=== PATIENT | female | born 1940 | race Caucasian/White ===

== ENCOUNTER → 2020-02-28 | Outpatient (CLI) | payer MEDICARE ==
--- NOTE | 2020-02-28 13:07 | MR ---
EXAMINATION TYPE: MR brain wo/w con DATE OF EXAM: 02/28/2020 COMPARISON: NONE HISTORY: MS, Abnormality of gait TECHNIQUE: Multiplanar, multisequence images of the brain and brainstem is performed without and with IV contras t, utilizing 7 mL intravenous Gadavist gadolinium contrast is administered intravenously. Demyelinat ing disease protocol with additional Sagittal Flair sequence performed. FINDINGS: T2 Lesions Present : Yes Approximate Number of Lesions: Difficult to accurately count due to confluent appearance at the periv entricular levels Locations Identified : Scattered most prominent periventricular, some posterior fossa involvement not ed for reference sagittal image 23. Size of Reference Lesion(s): 1. 1.1 x 0.7 x 1.0 cm posterior left frontal periventricular lesion axial image 19 and sagittal image 12 Enhancing Lesion(s) Present: No T1 Hypointense Lesion(s) Present: Yes Change from Prior: N/A Diffusion weighted images demonstrate no evidence of a recent infarct or other diffusion abnormality. There is diffuse ventricular and sulcal prominence with some generalized corpus callosal atrophy. Midline structures demonstrate normal morphology. The craniocervical junction appears within normal limits. Post contrast images demonstrate no abnormal enhancement. The dural venous sinuses appear pa tent. The visualized sinuses are clear and the globes are intact. IMPRESSION: Fairly moderate generalized atrophy and severe white matter changes may be on basis of kn own multiple sclerosis. No enhancing lesions are evident.
== END | disposition home or self-care (01) ==
LOC: RADMRIMAIN 11:16
PROVIDERS: ATTEND Psychiatry & Neurology Neurology
DX: G35 Multiple sclerosis (principal); R26.9 Unspecified abnormalities of gait and mobility; Z88.0 Allergy status to penicillin; Z88.2 Allergy status to sulfonamides
CPT/HCPCS: 70553; A9585

== ENCOUNTER → 2022-03-06 | Outpatient (CLI) | payer MEDICARE ==
--- NOTE | 2022-03-06 15:59 | MR ---
EXAMINATION TYPE: MR brain wo/w con DATE OF EXAM: 03/06/2022 COMPARISON: 02/28/2020 HISTORY: Increasing right leg weakness CONTRAST: Performed utilizing 6 mL intravenous Gadavist gadolinium contrast. TECHNIQUE: Multiplanar, multisequence imaging of the brain is performed on a 3.0 Caity magnet. Demye linating disease protocol with additional Sagittal Flair sequence is performed. Study is performed wi thin 24 hours of arrival to the hospital. FINDINGS: T2 White Matter Lesions Present : Yes Approximate Number of Lesions: Multiple scattered Locations Identified : Confluent Periventricular Size of Largest reference Lesion(s): 1. 1.0 x 1.1 x1.1 cm. Location: Periventricular Sequence 502 Image 20 (axial) and Sequence 501 Image 82r (sagittal). 2. 0.9 x 1.0 x 0.9 cm. Location: Right frontal centrum semiovale Sequence 401 Image 21 (axial) and Sequence 501 Image 170 (sagittal). Enhancing Lesion(s) Present: No Change from Prior: Stable Diffusion-weighted imaging is performed. No abnormal hyperintensity is present to suggest an acute i ntracranial infarct or acute ischemic change. Ventricles and sulci are prominent for the patient age. There is diffuse thinning of the corpus callo sum. No abnormal enhancement is evident. The visualized sinuses are clear. Visualized orbits are unremarkable. IMPRESSION: 1. Stable appearance of chronic white matter changes in the periventricular white matter and centrum semiovale can be compatible with multiple sclerosis.
== END | disposition home or self-care (01) ==
LOC: RADMRIMAIN 10:38
PROVIDERS: ATTEND Psychiatry & Neurology Neurology
DX: I67.82 Cerebral ischemia (principal)
CPT/HCPCS: 70553; A9585

== ENCOUNTER → 2023-08-04 | Outpatient (CLI) | payer MEDICARE ==
[2023-08-04 11:06] LABS: African American GFR (CKD) 86 (>60 ml/min/1.73 sqM); Blood Urea Nitrogen 18 mg/dL (7-17); Non-African American GFR(CKD) 75 (>60 ml/min/1.73 sqM)
--- NOTE | 2023-08-04 16:31 | CT ---
EXAMINATION TYPE: CT urogram wo/w con DATE OF EXAM: 08/04/2023 HISTORY: gross hematuria x [address] DLP: 2792mGycm Automated Exposure Control for Dose Reduction was Utilized. CONTRAST: CT scan of the abdomen and pelvis is performed without oral and without and with IV Contrast, patient injected with 100 cc mL of Isovue 300. Urogram protocol with 3-D reconstructed images created on an independent workstation and reviewed. COMPARISON: None. FINDINGS: KUB: Noncontrast images show abnormal axis to both kidneys pointed anteriorly. There is a nonobstruct ing 4 mm calculus lower pole right kidney axial image 81. No left-sided nephrolithiasis. Postcontrast images show symmetric cortical medullary uptake and excretion with partially exophytic 2.4 x 1.6 cm thin-walled cyst from the upper pole right kidney axial image 35 series 9. No intraluminal mass or ca lculus in the bladder. There are several bladder outpouchings or diverticula seen bilaterally. Incomp lete opacification of the bilateral ureters. LUNG BASES: No significant abnormality is appreciated. LIVER/GB: Roughly 1.0 cm low-density lesion left hepatic lobe axial image 21 favors benign thin-barbara d cyst. PANCREAS: No significant abnormality is seen. SPLEEN: No significant abnormality is seen. ADRENALS: No significant abnormality is seen. BOWEL: Distal colonic diverticulosis. No CT evidence for acute diverticulitis. No abnormal small or l arge bowel dilatation. UTERUS/ADNEXA: Small size uterus or uterus remnant. LYMPH NODES: No greater than 1cm abdominal or pelvic lymph nodes are appreciated. OSSEOUS STRUCTURES: No significant abnormality is seen. OTHER: Moderate calcified plaque of the aorta extends into branch vessels. IMPRESSION: 1. 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 There is 4 mm nonobstructing right renal calc ulus. There are several small bladder diverticulum. 2.
== END | disposition home or self-care (01) ==
LOC: RADCTMAIN 09:34
PROVIDERS: ATTEND Urology
DX: N20.0 Calculus of kidney (principal); N32.3 Diverticulum of bladder; R31.0 Gross hematuria; N28.89 Other specified disorders of kidney and ureter
CPT/HCPCS: 82565; 84520; 36415; 74400; 74178; Q9967

== ENCOUNTER 2023-08-21 10:47 | Inpatient (IN) | payer MEDICARE ==
--- NOTE | 2023-08-21 11:01 | ED ---
General Adult HPI - General Source: patient Mode of arrival: ambulatory Limitations: no limitations <Cesia Lancaster - Last Filed: 08/21/23 10:59> - General Source: patient, family, RN notes reviewed, old records reviewed <Fernandez Wang - Last Filed: 08/21/23 14:37> - General Stated complaint: possible sepsis - History of Present Illness Initial comments: Patient is an 82-year-old female with a history of MS presents emergency room accompanied by her family member for severe weakness, possible dehydration and erratic heart rate. Patient also has some slight confusion this morning. Patient has any cough, shortness breath, pain, fever or hemoptysis. Of note family member states that she has had vaginal bleeding for the last few months. (Cesia Lancaster) Patient is an 82-year-old female presents emergency Department complaining of tachycardia. Was sent from urgent care. Presents with caregiver. States patient has been somewhat confused with a decreased appetite for multiple days. Also noted some mild cough however primary complaint is the fever and tach ycardia. Denies any chest pain. Denies shortness of breath. Denies abdominal pain, nausea, vomiting. No other acute complaints at this time. Is not on blood thinners. No lower extremity edema. Presents for further evaluation at this time. No known sick contacts. Originally seen is a quick note. Patient does have a history of vaginal bleeding which is being worked up outpatient. (Fernandez Wang) - Related Data Home Medications Medication Instructions Recorded Confirmed No Known Home Medications 08/21/23 08/21/23 Allergies Allergy/AdvReac Type Severity Reaction Status Date / Time Sulfa (Sulfonamide Allergy Unknown Verified 08/21/23 10:57 Antibiotics) Penicillins AdvReac Unknown Verified 08/21/23 10:57 Review of Systems ROS Other: All systems not noted in ROS Statement are negative. <Cesia Lancaster - Last Filed: 08/21/23 10:59> ROS Other: All systems not noted in ROS Statement are negative. <Fernandez Wang - Last Filed: 08/21/23 14:37> ROS Statement: Those systems with pertinent positive or pertinent negative responses have been documented in the HPI. Review of Systems: CONST: Denies fever EYES: Denies blurry vision ENT: Denies nasal congestion C/V: Denies Chest pain RESP: Denies shortness of breath GI: Denies abdominal pain : Denies dysuria SKIN: Denies rash. MSK: Denies joint pain. NEURO: Denies headache (Fernandez Wang) Past Medical History Additional Past Medical History / Comment(s): MS, Past Surgical History: Hysterectomy Past Psychological History: No Psychological Hx Reported Smoking Status: Former smoker Past Alcohol Use History: None Reported Past Drug Use History: None Reported <Cesia Lancaster - Last Filed: 08/21/23 10:59> General Exam Limitations: no limitations <Cesia Lancaster - Last Filed: 08/21/23 10:59> <Fernandez Wang - Last Filed: 08/21/23 14:37> - General Exam Comments Initial Comments: Visual Physical Exam Vital signs reviewed General: Ill-appearing, nontoxic, pale and weak Head: Normocephalic, atraumatic Eyes: PERRLA, EOMI ENT: Airway patent Chest: Nonlabored breathing Skin: No visual rash, pale Neuro: Alert and oriented Musculoskeletal: No gross abnormalities (Cesia Lancaster) General: Appears in no acute distress. Febrile HEAD: Normal with no signs of head trauma. Pupils are 3 mm and equal bilatera lly. EYES: PERRLA, EOMI, conjunctiva normal, no discharge. ENT: Hearing grossly intact, normal oropharynx. RESPIRATORY: Clear breath sounds bilaterally. No wheezes, rales, or rhonchi. C/V: Tachycardic with a regular rhythm. S1 and S2 auscultated, no edema, peripheral pulses 2+ and intact throughout ABD: Abd is soft, nontender, nondistended EXT: Normal range of motion, no obvious deformity SKIN: No rashes or lesions observed on exposed skin. NEURO: Alert and oriented 4. No focal deficits. (Fernandez Wang) Course Vital Signs 08/21/23 08/21/23 10:50 14:14 Temperature 101.6 F H 97.8 F Pulse Rate 151 H 102 H Respiratory 20 18 Rate Blood Pressure 167/77 115/66 O2 Sat by Pulse 92 L 97 Oximetry Medical Decision Making <TonnyCesia - Last Filed: 08/21/23 10:59> - Lab Data Result diagrams: 08/21/23 11:11 08/21/23 11:11 - EKG Data -: EKG Interpreted by Me <Fernandez Wang - Last Filed: 08/21/23 14:37> - Medical Decision Making Quick note portion completed by myself, electronically signed ARNULFO Alvarez. (Cesia Lancaster) Was pt. sent in by a medical professional or institution (, PA, REMOTE SENSING ENGINEER, urgent care, hospital, or snf...) When possible be specific @ -No Did you speak to anyone other than the patient for history (EMS, parent, family, police, friend...)? What history was obtained from this source @ -No Did you review nursing and triage notes (agree or disagree)? Why? @ -I reviewed and agree with nursing and triage notes Were old charts reviewed (outside hosp., previous admission, EMS record, old EKG, old radiological studies, urgent care reports/EKG's, snf records)? Report findings @ -Old charts reviewed Differential Diagnosis (chest pain, altered mental status, abdominal pain women, abdominal pain men, vaginal bleeding, weakness, fever, dyspnea, syncope, headache, dizziness, GI bleed, back pain, seizure, CVA, palpatations, mental health, musculoskeletal)? @ -Differential Fever: Pneumonia, viral URI, endocarditis, myocarditis, pericarditis, otitis, sinusitis, peritonsillar Abscess, retropharyngeal Abscess, epiglottitis, peritonitis, appendicitis, Geetha cystitis, diverticulitis, hepatitis, colitis, UTI, PID, TOA, pyelonephritis, prostatitis, epididymitis, meningitis, encephalitis, pulmonary embolism, CVA, thyroid storm, pancreatitis, adrenal crisis, cavernous sinus thrombosis, this is not meant to be an all-inclusive list. EKG interpreted by me (3pts min.). @ -As above X-rays interpreted by me (1pt min.). @ -Chest x-ray reveals no obvious acute cardio pulmonary process. CT interpreted by me (1pt min.). @ -CT brain shows no obvious evidence of an acute intracranial process. U/S interpreted by me (1pt. min.). @ -None done What testing was considered but not performed or refused? (CT, X-rays, U/S, labs)? Why? @ -None What meds were considered but not given or refused? Why? @ -None Did you discuss the management of the patient with other professionals (professionals i.e. , PA, REMOTE SENSING ENGINEER, lab, RT, psych nurse, social work administrator, editorial specialist, teacher, air defense control officer, protective services case worker)? Give summary @ -I spoke with the admitting team, Dr. Knapp of [facility] who accepted the patien t. Was smoking cessation discussed for >3mins.? @ -No Was critical care preformed (if so, how long)? @ -No Were there social determinants of health that impacted care today? How? (Homelessness, low income, unemployed, alcoholism, drug addiction, transportation, low edu. Level, literacy, decrease access to med. care, [facility], rehab)? @ -No Was there de-escalation of care discussed even if they declined (Discuss DNR or withdrawal of care, Hospice)? DNR status @ -No What co-morbidities impacted this encounter? (DM, HTN, Smoking, COPD, CAD, Cancer, CVA, ARF, Chemo, Hep., AIDS, mental health diagnosis, sleep apnea, morbid obesity)? @ -None Was patient admitted / discharged? Hospital course, mention meds given and route, prescriptions, significant lab abnormalities, going to OR and other pe rtinent info. @ -Based on the patient's presentation and physical exam, I'm concerned for possible infection for the patient. She is tachycardic and febrile. We will obtain infectious workup. CT brain also be obtained due to the episode of confusion earlier. Really has no confusion. She was in agreement this plan. Vital signs otherwise within acceptable limits. Patient will be given a 1 L fluid bolus as well as Tylenol. EKG showed sinus tachycardia. Patient's labs are marked lactic acidosis of 3.2. Mildly leukopenic at 2.1. Hemoglobin level within acceptable limits. At this time 1216, patient did meet criteria for sepsis. Patient has already received a 1 L fluid bolus as well as a dose of acetaminophen. She'll receive an additional fluid bolus and be placed on maintenance fluids of 100 mL an hour to me to 30 mL per KG requirement. Patient will be empirically placed on vancomycin and cefepime. Further workup still pending. Blood cultures obtained and sent. Urine is unremarkable. Viral swabs are negative. On reevaluation, patient's EKG and tachycardia has resolved after fluid boluses and treatment. Patient's fever is also improved. Patient will be admitted at this time. She was in agreement this plan. I spoke with the admitting team, Dr. Knapp of [facility] who accepted the patient. Undiagnosed new problem with uncertain prognosis? @ -No Drug Therapy requiring intensive monitoring for toxicity (Heparin, Nitro, Insulin, Cardizem)? @ -No Were any procedures done? @ -No Diagnosis/symptom? @ -Sepsis, unknown source. Sinus tachycardia. Dehydration Acute, or Chronic, or Acute on Chronic? @ -Acute Uncomplicated (without systemic symptoms) or Complicated (systemic symptoms)? @ -Complicated Side effects of treatment? @ -No Exacerbation, Progression, or Severe Exacerbation? @ -No Poses a threat to life or bodily function? How? (Chest pain, [place], [place], pneumonia, PE, COPD, DKA, ARF, appy, cholecystitis, CVA, Diverticulitis, Homicidal, Suicidal, threat to staff... and all critical care pts) @ -Yes (Fernandez Wang) - Lab Data Lab Results 08/21/23 08/21/23 08/21/23 Range/Units 11:11 11:11 11:11 WBC (3.8-10.6) k/uL RBC (3.80-5.40) m/uL Hgb (11.4-16.0) gm/dL Hct (34.0-46.0) % MCV (80.0-100.0) fL MCH (25.0-35.0) pg MCHC (31.0-37.0) g/dL RDW (11.5-15.5) % Plt Count (150-450) k/uL MPV Neutrophils % (Manual) % Lymphocytes % (Manual) % Monocytes % (Manual) % Eosinophils % (Manual) % Neutrophils # Neutrophils # (Manual) (1.3-7.7) k/uL Lymphocytes # (Manual) (1.0-4.8) k/uL Monocytes # (Manual) (0-1.0) k/uL Eosinophils # (Manual) (0-0.7) k/uL Nucleated RBCs (0-0) /100 WBC Manual Slide Review Sodium (137-145) mmol/L Potassium (3.5-5.1) mmol/L Chloride (98-107) mmol/L Carbon Dioxide (22-30) mmol/L Anion Gap mmol/L BUN (7-17) mg/dL Creatinine (0.52-1.04) mg/dL Est GFR (CKD-EPI)AfAm (>60 ml/min/1.73 sqM) Est GFR (CKD-EPI)NonAf (>60 ml/min/1.73 sqM) Glucose (74-99) mg/dL Lactic Ac Sepsis Rflx Plasma Lactic Acid Dany 3.2 H* (0.7-2.0) mmol/L Calcium (8.4-10.2) mg/dL Total Bilirubin (0.2-1.3) mg/dL AST (14-36) U/L ALT (4-34) U/L Alkaline Phosphatase (38-126) U/L Troponin I 0.015 (0.000-0.034) ng/mL Total Protein (6.3-8.2) g/dL Albumin (3.5-5.0) g/dL Urine Color Urine Appearance (Clear) Urine pH (5.0-8.0) Ur Specific [place] (1.001-1.035) Urine Protein (Negative) Urine Glucose (UA) (Negative) Urine Ketones (Negative) Urine Blood (Negative) Urine Nitrite (Negative) Urine Bilirubin (Negative) Urine Urobilinogen (<2.0) mg/dL Ur Leukocyte Esterase (Negative) Urine RBC (0-5) /hpf Urine WBC (0-5) /hpf Ur Squamous Epith Cells (0-4) /hpf Urine Mucus (None) /hpf Influenza Type A (PCR) Not Detected (Not Detectd) Influenza Type B (PCR) Not Detected (Not Detectd) RSV (PCR) Not Detected (Not Detectd) SARS-CoV-2 (PCR) Not Detected (Not Detectd) 08/21/23 08/21/23 08/21/23 Range/Units 11:11 11:11 11:11 WBC 2.1 L (3.8-10.6) k/uL RBC 5.05 (3.80-5.40) m/uL Hgb 14.5 (11.4-16.0) gm/dL Hct 44.3 (34.0-46.0) % MCV 87.7 (80.0-100.0) fL MCH 28.6 (25.0-35.0) pg MCHC 32.6 (31.0-37.0) g/dL RDW 13.9 (11.5-15.5) % Plt Count 204 (150-450) k/uL MPV 10.0 Neutrophils % (Manual) 5 % Lymphocytes % (Manual) 80 % Monocytes % (Manual) 13 % Eosinophils % (Manual) 2 % Neutrophils # REMOTE SENSING ENGINEER Neutrophils # (Manual) 0.11 L* (1.3-7.7) k/uL Lymphocytes # (Manual) 1.68 (1.0-4.8) k/uL Monocytes # (Manual) 0.27 (0-1.0) k/uL Eosinophils # (Manual) 0.04 (0-0.7) k/uL Nucleated RBCs 0 (0-0) /100 WBC Manual Slide Review Performed Sodium 138 (137-145) mmol/L Potassium 4.1 (3.5-5.1) mmol/L Chloride 101 (98-107) mmol/L Carbon Dioxide 22 (22-30) mmol/L Anion Gap 15 mmol/L BUN 13 (7-17) mg/dL Creatinine 0.59 (0.52-1.04) mg/dL Est GFR (CKD-EPI)AfAm >90 (>60 ml/min/1.73 sqM) Est GFR (CKD-EPI)NonAf 86 (>60 ml/min/1.73 sqM) Glucose 132 H (74-99) mg/dL Lactic Ac Sepsis Rflx Plasma Lactic Acid Dany (0.7-2.0) mmol/L Calcium 9.2 (8.4-10.2) mg/dL Total Bilirubin 1.4 H (0.2-1.3) mg/dL AST 24 (14-36) U/L ALT 16 (4-34) U/L Alkaline Phosphatase 85 (38-126) U/L Troponin I (0.000-0.034) ng/mL Total Protein 6.6 (6.3-8.2) g/dL Albumin 3.8 (3.5-5.0) g/dL Urine Color Yellow Urine Appearance Clear (Clear) Urine pH 7.0 (5.0-8.0) Ur Specific [place] 1.015 (1.001-1.035) Urine Protein Trace H (Negative) Urine Glucose (UA) Negative (Negative) Urine Ketones 2+ (Negative) Urine Blood Trace H (Negative) Urine Nitrite Negative (Negative) Urine Bilirubin Negative (Negative) Urine Urobilinogen 1.0 (<2.0) mg/dL Ur Leukocyte Esterase Trace H (Negative) Urine RBC 4 (0-5) /hpf Urine WBC 1 (0-5) /hpf Ur Squamous Epith Cells <1 (0-4) /hpf Urine Mucus Rare H (None) /hpf Influenza Type A (PCR) (Not Detectd) Influenza Type B (PCR) (Not Detectd) RSV (PCR) (Not Detectd) SARS-CoV-2 (PCR) (Not Detectd) 08/21/23 Range/Units 12:03 WBC (3.8-10.6) k/uL RBC (3.80-5.40) m/uL Hgb (11.4-16.0) gm/dL Hct (34.0-46.0) % MCV (80.0-100.0) fL MCH (25.0-35.0) pg MCHC (31.0-37.0) g/dL RDW (11.5-15.5) % Plt Count (150-450) k/uL MPV Neutrophils % (Manual) % Lymphocytes % (Manual) % Monocytes % (Manual) % Eosinophils % (Manual) % Neutrophils # Neutrophils # (Manual) (1.3-7.7) k/uL Lymphocytes # (Manual) (1.0-4.8) k/uL Monocytes # (Manual) (0-1.0) k/uL Eosinophils # (Manual) (0-0.7) k/uL Nucleated RBCs (0-0) /100 WBC Manual Slide Review Sodium (137-145) mmol/L Potassium (3.5-5.1) mmol/L Chloride (98-107) mmol/L Carbon Dioxide (22-30) mmol/L Anion Gap mmol/L BUN (7-17) mg/dL Creatinine (0.52-1.04) mg/dL Est GFR (CKD-EPI)AfAm (>60 ml/min/1.73 sqM) Est GFR (CKD-EPI)NonAf (>60 ml/min/1.73 sqM) Glucose (74-99) mg/dL Lactic Ac Sepsis Rflx Y Plasma Lactic Acid Dany (0.7-2.0) mmol/L Calcium (8.4-10.2) mg/dL Total Bilirubin (0.2-1.3) mg/dL AST (14-36) U/L ALT (4-34) U/L Alkaline Phosphatase (38-126) U/L Troponin I (0.000-0.034) ng/mL Total Protein (6.3-8.2) g/dL Albumin (3.5-5.0) g/dL Urine Color Urine Appearance (Clear) Urine pH (5.0-8.0) Ur Specific [place] (1.001-1.035) Urine Protein (Negative) Urine Glucose (UA) (Negative) Urine Ketones (Negative) Urine Blood (Negative) Urine Nitrite (Negative) Urine Bilirubin (Negative) Urine Urobilinogen (<2.0) mg/dL Ur Leukocyte Esterase (Negative) Urine RBC (0-5) /hpf Urine WBC (0-5) /hpf Ur Squamous Epith Cells (0-4) /hpf Urine Mucus (None) /hpf Influenza Type A (PCR) (Not Detectd) Influenza Type B (PCR) (Not Detectd) RSV (PCR) (Not Detectd) SARS-CoV-2 (PCR) (Not Detectd) - EKG Data EKG Comments: 12-lead Electrocardiogram Interpretation Note EKG was reviewed and interpreted by myself. 12-lead ECG performed at 11:15 is interpreted by me as revealing sinus tachycardia at a rate of 146 beats per minute. [place] is normal. VA interval is 136 ms, QRS duration 71 ms, QTc is 445 ms.. There were no ST or T wave abnormalities to suggest myocardial ischemia or injury. R wave progression across the precordium was delayed. By my interpretation this EKG is non-diagnostic for acute ischemia. (Fernandez Wang) Disposition <Cesia Lancaster - Last Filed: 08/21/23 10:59> Time of Disposition: 12:51 <Fernandez Wang - Last Filed: 08/21/23 14:37> Clinical Impression: Sepsis, Sinus tachycardia, Febrile illness, Dehydration Disposition: ADMITTED IP TO THIS HOSP Condition: Serious
[2023-08-21 11:47] LABS: HCT 44.3 % (34.0-46.0); HGB 14.5 gm/dL (11.4-16.0); MCH 28.6 pg (25.0-35.0); MCHC 32.6 g/dL (31.0-37.0); MCV 87.7 fL (80.0-100.0); Platelet Count 204 k/uL (150-450); RBC 5.05 m/uL (3.80-5.40); RDW 13.9 % (11.5-15.5); WBC 2.1 k/uL (3.8-10.6)
[2023-08-21 11:49] LABS: ALT 16 U/L (4-34); AST 24 U/L (14-36); African American GFR (CKD) >90 (>60 ml/min/1.73 sqM); Albumin 3.8 g/dL (3.5-5.0); Alkaline Phosphatase 85 U/L (38-126); Anion Gap 15 mmol/L; Blood Urea Nitrogen 13 mg/dL (7-17); Calcium 9.2 mg/dL (8.4-10.2); Carbon Dioxide 22 mmol/L (22-30); Chloride 101 mmol/L (98-107); Glucose 132 mg/dL (74-99); Non-African American GFR(CKD) 86 (>60 ml/min/1.73 sqM); Potassium 4.1 mmol/L (3.5-5.1); Sodium 138 mmol/L (137-145); Total Bilirubin 1.4 mg/dL (0.2-1.3); Total Protein 6.6 g/dL (6.3-8.2)
[2023-08-21 11:57] LABS: Appearance,Urine Clear (Clear); Color,Urine Yellow; Protein,Urine Trace (Negative); Specific Gravity,Urine 1.015 (1.001-1.035)
[2023-08-21 11:58] LABS: Bilirubin,Urine Negative (Negative); Blood,Urine Trace (Negative); Glucose,Urine (UA) Negative (Negative); Ketones,Urine 2+ (Negative); Leukocyte Esterase,Urine Trace (Negative); Nitrite,Urine Negative (Negative)
[2023-08-21 11:59] LABS: RBC,Urine 4 /hpf (0-5); Squamous Epithelial Cell,Urine <1 /hpf (0-4); WBC,Urine 1 /hpf (0-5)
[2023-08-21 12:00] LABS: Mucus,Urine Rare /hpf
[2023-08-21] MEDS ORDERED: VANCOMYCIN IV PER PHARMACY 1 EACH MISC MISCELLANE PRN (12:16)
[2023-08-21 12:20] LABS: Neutrophils % (M) 5 %
[2023-08-21 12:22] LABS: Eosinophils # (M) 0.04 k/uL (0-0.7); Lymphocytes # (M) 1.68 k/uL (1.0-4.8); Monocytes # (M) 0.27 k/uL (0-1.0); Neutrophils # (M) 0.11 k/uL (1.3-7.7); Nucleated Red Blood Cells 0 /100 WBC (0-0); Total Cells Counted 100
[2023-08-21] MEDS: ACETAMINOPHEN TAB 500 MG TAB PO STA (12:22)
[2023-08-21] MEDS: SODIUM CHLORIDE 0.9% 1,000 ML IV STA ×3 (12:25→14:16)
--- NOTE | 2023-08-21 12:34 | CT ---
EXAMINATION TYPE: CT brain wo con DATE OF EXAM: 08/21/2023 COMPARISON: MRI brain 03/06/2020 HISTORY: AMS, weakness, h/o MS CT DLP: 1091.4 mGycm Automated exposure control for dose reduction was used. FINDINGS: A moderate degenerative change with hypoattenuation in the white matter most typical remote microvasc ular ischemia. No midline shift or mass effect. No acute hemorrhage. Orbits are symmetric. Intracrani al atherosclerotic changes. The cerebellar tonsils are low-lying and suggestive of Chiari malformati on. Chronic sinusitis. IMPRESSION: MODERATE DEGENERATIVE CHANGE WITH REMOTE ISCHEMIC WHITE MATTER CHANGES. NO ACUTE HEMORRHAGE OR MASS E FFECT.
--- NOTE | 2023-08-21 12:35 | XR ---
EXAMINATION TYPE: XR chest 2V DATE OF EXAM: 08/21/2023 COMPARISON: NONE HISTORY: Shortness of breath TECHNIQUE: Frontal and lateral views of the chest are obtained. FINDINGS: Scattered senescent parenchymal changes noted. Hyperinflation compatible with COPD. No evidence for infiltrate. No evidence for atelectasis. Heart size is stable. Mediastinal structures are stable and grossly unremarkable. No evidence for hilar prominence. Degenerative changes dorsal spine. IMPRESSION: 1. No evidence for acute pulmonary disease.
[2023-08-21] MEDS ORDERED: NALOXONE 0.4 MG/ML 1 ML VIAL IV PRN (13:19)
--- NOTE | 2023-08-21 13:34 | P.HPIM ---
History of Present Illness Patient is a pleasant 82-year-old female with known history of MS and some residual weakness on the right side more than the left side and significant generalized weakness came in with complaints of altered mental status increased generalized weakness and also had fever. Chest x-ray did not show any pneumonia UA is not impressive for urinary tract infection patient denied any abdominal pain diarrhea. So far there is no clear source of infection patient was started on cefepime and vancomycin subsequently admitted. Patient does have leukocytosis as well.. Patient denied any single and body aches confusion appears to be improving patient was significant confused yesterday and today. General his weakness started today. Patient was tachycardic with heart rate of 150 sinus tachycardia presently around 120 patient is presently in IV fluids. Pro-calcitonin will be ordered. Influenza, RSV and COVID-19 are negative. Irene ent lives at an assisted living facility REVIEW OF SYSTEMS: CONSTITUTIONAL: As mentioned in HPI HEENT: No recent visual problems or hearing problems. Denied any sore throat. CARDIOVASCULAR: No chest pain, orthopnea, PND, no palpitations, no syncope. PULMONARY: No shortness of breath, no cough, no hemoptysis. GASTROINTESTINAL: No diarrhea, no nausea, no vomiting, no abdominal pain. NEUROLOGICAL: No headaches, no weakness, no numbness. HEMATOLOGICAL: Denies any bleeding or petechiae. GENITOURINARY: Denies any burning micturition, frequency, or urgency. MUSCULOSKELETAL/RHEUMATOLOGICAL: Denies any joint pain, swelling, or any muscle pain. ENDOCRINE: Denies any polyuria or polydipsia. The rest of the 14-point review of systems is negative. PHYSICAL EXAMINATION: GENERAL: The patient is alert and oriented x3, not in any acute distress. Thin built female HEENT: Pupils are round and equally reacting to light. EOMI. No scleral icterus. No conjunctival pallor. Normocephalic, atraumatic. No pharyngeal erythema. No thyromegaly. CARDIOVASCULAR: S1 and S2 present. No murmurs, rubs, or gallops. PULMONARY: Chest is clear to auscultation, no wheezing or crackles. ABDOMEN: Soft, nontender, nondistended, normoactive bowel sounds. No palpable organomegaly. MUSCULOSKELETAL: No joint swelling or deformity. EXTREMITIES: No cyanosis, clubbing, or pedal edema. NEUROLOGICAL: No focal weakness but does have significant generalized weakness patient is alert oriented 3 but still bit confused and lethargic. SKIN: No rashes. Assessment and plan Plan sepsis no clear source of infection continue with Vanco luizin Michelle infectious disease will be consulted can you with IV fluids -sinus tachycardia secondary to fever and infection, sepsis -History of multiple sclerosis without any new weakness or any new evidence of MS exacerbation DVT prophylaxis: Low-dose Lovenox subcutaneously Past Medical History Additional Past Medical History / Comment(s): MS, Past Surgical History: Hysterectomy Past Psychological History: No Psychological Hx Reported Smoking Status: Former smoker Past Alcohol Use History: None Reported Past Drug Use History: None Reported Medications and Allergies Home Medications Medication Instructions Recorded Confirmed Type No Known Home Medications 08/21/23 08/21/23 History Allergies Allergy/AdvReac Type Severity Reaction Status Date / Time Sulfa (Sulfonamide Allergy Unknown Verified 08/21/23 10:57 Antibiotics) Penicillins AdvReac Unknown Verified 08/21/23 10:57 Physical Exam Vitals: Vital Signs Temp Pulse Resp BP Pulse Ox 08/21/23 10:50 101.6 F H 151 H 20 167/77 92 L Intake and Output 08/20/23 08/21/23 08/21/23 22:59 06:59 14:59 Other: Weight 58.967 kg Results CBC & Chem 7: 08/21/23 11:11 08/21/23 11:11 Labs: Abnormal Lab Results - Last 24 Hours (Table) 08/21/23 08/21/23 08/21/23 Range/Units 11:11 11:11 11:11 WBC 2.1 L (3.8-10.6) k/uL Neutrophils # (Manual) 0.11 L* (1.3-7.7) k/uL Glucose (74-99) mg/dL Plasma Lactic Acid Dany 3.2 H* (0.7-2.0) mmol/L Total Bilirubin (0.2-1.3) mg/dL Urine Protein Trace H (Negative) Urine Blood Trace H (Negative) Ur Leukocyte Esterase Trace H (Negative) Urine Mucus Rare H (None) /hpf 08/21/23 Range/Units 11:11 WBC (3.8-10.6) k/uL Neutrophils # (Manual) (1.3-7.7) k/uL Glucose 132 H (74-99) mg/dL Plasma Lactic Acid Dany (0.7-2.0) mmol/L Total Bilirubin 1.4 H (0.2-1.3) mg/dL Urine Protein (Negative) Urine Blood (Negative) Ur Leukocyte Esterase (Negative) Urine Mucus (None) /hpf
[2023-08-21] MEDS: VANCOMYCIN 1,000 MG in SODIUM CHLORIDE 0.9% 250 ML IVPB STA (14:15)
[2023-08-21 15:09] LABS: INR 1.2 (<1.2); Partial Thromboplastin Time 26.5 sec (22.0-30.0); Prothrombin Time 12.7 sec (10.0-12.5)
[2023-08-21] MEDS: MAGNESIUM SULFATE-D5W PMX 1 GM in DEXTROSE/WATER 1 100ML.BAG IVPB SCH (15:55)
[2023-08-21] MEDS: CEFEPIME 2 GM in SODIUM CHLORIDE 0.9% 100 ML IVPB SCH (16:56)
[2023-08-21] MEDS: ACETAMINOPHEN TAB 325 MG TAB PO SCH (18:50)
[2023-08-21] MEDS: HEPARIN SODIUM,PORCINE 5,000 UNIT/ML 1 ML VIAL SQ SCH (21:47)
[2023-08-22] MEDS: traMADol 50 MG TAB PO PRN (00:17)
[2023-08-22] MEDS: VANCOMYCIN 1,000 MG in SODIUM CHLORIDE 0.9% 250 ML IVPB SCH (02:17)
--- NOTE | 2023-08-22 07:54 | P.CONS ---
History of Present Illness - Reason for Consult Consult date: 08/21/23 Sepsis, unknown source Requesting physician: Olena Knapp - Chief Complaint Confusion and weakness x few days - History of Present Illness Patient is a 82-year-old female with a past medical history significant for MS patient was brought into the hospital for evaluation of slight confusion weakness and possible dehydration patient was taken to the urgent care the patient was noted to be tachycardic for the patient was advised to go to the ER patient did complain of feeling weak and no energy has also been some lower back pain without any history of any trauma or falls patient denies having any headache or URI symptoms denies any chest pain or shortness of breath minimal cough, patient did have decreased appetite but denies any nausea vomiting abdominal pain or any diarrhea no urinary symptoms with the symptoms the patient was evaluated on presentation to the hospital patient did have a fever of 101.6 F patient was nontachycardic hypotensive or hypoxic patient did have white count of 2.1 creatinine 0.59 lactic acid was elevated influenza RSV and COVID testing was negative patient did have a chest x-ray no infiltrate pulmonary disease patient was started on vancomycin and cefepime infectious disease consulted for further management of antibiotic therapy Review of Systems Positive point and negatives has been mentioned in the HPI, complete review of systems was performed and all other systems are negative Past Medical History Additional Past Medical History / Comment(s): MS, Past Surgical History: Hysterectomy Past Psychological History: No Psychological Hx Reported Smoking Status: Former smoker Past Alcohol Use History: None Reported Past Drug Use History: None Reported Medications and Allergies Home Medications Medication Instructions Recorded Confirmed Type Famotidine [Pepcid] 20 mg PO DAILY #30 tablet 08/25/23 Rx Loperamide [Imodium] 2 mg PO QID PRN #0 cap 08/25/23 Rx Metoprolol Tartrate [Lopressor] 12.5 mg PO BID #60 tab 08/25/23 Rx cefUROXime axetiL [Ceftin] 500 mg PO BID 10 Days #20 tab 08/25/23 Rx metroNIDAZOLE [Flagyl] 500 mg PO TID 10 Days #30 tab 08/25/23 Rx traMADol HCl [Ultram] 50 mg PO BID PRN 3 Days #6 tab 08/27/23 Rx Allergies Allergy/AdvReac Type Severity Reaction Status Date / Time Sulfa (Sulfonamide Allergy Unknown Verified 08/21/23 10:57 Antibiotics) Penicillins AdvReac Unknown Verified 08/21/23 10:57 Physical Exam Vitals: Vital Signs Temp Pulse Resp BP Pulse Ox 08/21/23 14:14 97.8 F 102 H 18 115/66 97 08/21/23 10:50 101.6 F H 151 H 20 167/77 92 L Intake and Output 08/21/23 08/21/23 08/21/23 06:59 14:59 22:59 Other: Weight 58.967 kg GENERAL DESCRIPTION: Elderly female lying in bed, no distress. No tachypnea or accessory muscle of respiration use. HEENT: Shows Pallor , no scleral icterus. Oral mucous membrane is dry. No pharyngeal erythema or thrush NECK: Trachea central, no thyromegaly. LUNGS: Unlabored breathing. Clear to auscultation anteriorly. No wheeze or crackle. HEART: S1, S2, regular rate and rhythm. No loud murmur ABDOMEN: Soft, no tenderness , EXTREMITIES: No edema of feet. SKIN: No rash, no masses palpable. NEUROLOGICAL: The patient is awake, alert,, mood and affect normal. Results CBC & Chem 7: 08/23/23 08:47 08/27/23 08:00 Labs: Abnormal Lab Results - Last 24 Hours (Table) 08/21/23 08/21/23 08/21/23 Range/Units 11:11 11:11 11:11 WBC 2.1 L (3.8-10.6) k/uL Neutrophils # (Manual) 0.11 L* (1.3-7.7) k/uL PT (10.0-12.5) sec INR (<1.2) Glucose (74-99) mg/dL Plasma Lactic Acid Dany 3.2 H* (0.7-2.0) mmol/L Total Bilirubin (0.2-1.3) mg/dL Urine Protein Trace H (Negative) Urine Blood Trace H (Negative) Ur Leukocyte Esterase Trace H (Negative) Urine Mucus Rare H (None) /hpf 08/21/23 08/21/23 Range/Units 11:11 14:32 WBC (3.8-10.6) k/uL Neutrophils # (Manual) (1.3-7.7) k/uL PT 12.7 H (10.0-12.5) sec INR 1.2 H (<1.2) Glucose 132 H (74-99) mg/dL Plasma Lactic Acid Dany (0.7-2.0) mmol/L Total Bilirubin 1.4 H (0.2-1.3) mg/dL Urine Protein (Negative) Urine Blood (Negative) Ur Leukocyte Esterase (Negative) Urine Mucus (None) /hpf Assessment and Plan (1) Sepsis Status: Acute Code(s): A41.9 - SEPSIS, UNSPECIFIED ORGANISM SNOMED Code(s): 74192777 Plan: 1patient is 82-year female with MS who did have a fever and apparently was tachycardic in the urgent care , she did have a leukopenia elevated lactic acid initial workup including UA chest x-ray has been negative evidence of encephalitis or joint swelling and abdominal soft on clinical Examination 2-we will check a CRP and wait for the procalcitonin and blood culture to finalize 3-check a CT of abdomen pelvis 4-continue with empiric vancomycin and cefepime while Waiting for the culture to finalize We will follow on clinical condition and cultures to further adjust medication if needed Thank you for this consultation we will follow the patient along with you Dictation was produced using [employer] dictation software. please excuse any grammatical, word or spelling errors. Time with Patient: Greater than 30
[2023-08-22] MEDS: IOPAMIDOL CONTRAST (ORAL USE) VIAL PO PRN (08:30)
[2023-08-22 08:57] LABS: HCT 37.3 % (34.0-46.0); HGB 12.3 gm/dL (11.4-16.0); MCH 29.2 pg (25.0-35.0); MCHC 33.1 g/dL (31.0-37.0); MCV 88.3 fL (80.0-100.0); Mean Platelet Volume 10.1; Platelet Count 158 k/uL (150-450); RBC 4.22 m/uL (3.80-5.40); RDW 13.8 % (11.5-15.5); WBC 1.6 k/uL (3.8-10.6)
[2023-08-22 09:00] LABS: African American GFR (CKD) >90 (>60 ml/min/1.73 sqM); Anion Gap 9 mmol/L; Blood Urea Nitrogen 12 mg/dL (7-17); Calcium 8.1 mg/dL (8.4-10.2); Carbon Dioxide 19 mmol/L (22-30); Chloride 110 mmol/L (98-107); Glucose 130 mg/dL (74-99); Non-African American GFR(CKD) >90 (>60 ml/min/1.73 sqM); Potassium 3.1 mmol/L (3.5-5.1); Sodium 138 mmol/L (137-145)
[2023-08-22] MEDS ORDERED: ENOXAPARIN 40 MG/0.4 ML SYRINGE SQ SCH (09:00)
[2023-08-22 09:11] LABS: C Reactive Protein 16.3 mg/dL (<1.0)
[2023-08-22] MEDS: SODIUM CHLORIDE 0.9% 1,000 ML IV SCH (09:43)
[2023-08-22 10:43] LABS: Neutrophils % (M) 1 %
[2023-08-22 10:44] LABS: Band Neutrophils % 6 %; Eosinophils # (M) 0.02 k/uL (0-0.7); Lymphocytes # (M) 0.96 k/uL (1.0-4.8); Monocytes # (M) 0.51 k/uL (0-1.0)
[2023-08-22 10:45] LABS: Nucleated Red Blood Cells 0 /100 WBC (0-0); Total Cells Counted 100
[2023-08-22 10:49] LABS: RBC Morphology Normal
[2023-08-22] MEDS: POTASSIUM CHLORIDE ER 20 MEQ TAB.ER PO SCH (13:30)
--- NOTE | 2023-08-22 14:54 | CT ---
EXAMINATION TYPE: CT abdomen pelvis w con DATE OF EXAM: 08/22/2023 COMPARISON: 08/04/2023 HISTORY: 82-year-old female fever TECHNIQUE: Contiguous axial scanning of the abdomen and pelvis following administration of 100 ml Iso lor 300 IV contrast. Delayed images through the kidneys and coronal/sagittal reconstructions perform ed. CT DLP: 606.3 mGycm Automated exposure control for dose reduction was used. FINDINGS: Heart size with small left-sided pericardial effusion measuring 8 mm thick. Dense mitral an nular calcifications are present. There are new trace bilateral pleural effusions. Some patchy opacity at left base likely adjacent ate lectasis. Stable left hepatic dome cyst measuring 8 mm. Smaller focal fat along the anterior falciform ligament . Gallbladder measures upper limits of normal at 3.4 cm wide. No biliary ductal dilatation. Portal veno us system is patent. Diffuse main pancreatic ductal dilatation up to 1.3 cm. Redemonstrated malrotated bilateral kidneys. Nonobstructive 3 mm right renal stone. 2.4 cm right wilton l cyst. Symmetric uptake of contrast in the kidneys. Spleen within normal limits. 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 Moderate atherosclerotic calcifications abdominal aorta and iliac arteries. No dilated small bowel, free fluid, or free air. No mesenteric or retroperitoneal adenopathy. Normal appendix. Scattered colonic diverticulosis, greatest in the sigmoid colon. No pericolic inflammatory change. Bladder urine distended with prominent bladder wall diverticula. Unusual distorted appearance to the uterus/cervix region. Measuring approximately 6.6 x 4.7 cm and es timated at 4.3 x 3.4 cm on 08/04/2023. No abnormal fluid collection in the pelvis or pelvic lymphadenopathy. Bones: Osteopenia. No osseous structure process. IMPRESSION: 1. NEW TRACE BILATERAL PLEURAL EFFUSIONS. NEW TRACE PERICARDIAL EFFUSION. PATCHY OPACITY AT THE LEFT BASE PROBABLY REPRESENT ATELECTASIS RATHER THAN DEVELOPING INFILTRATE. CLINICALLY CORRELATE. ALSO, CO RRELATE FOR ANY SIGNS OR SYMPTOMS OF FLUID OVERLOAD STATE. 2. UNUSUAL HETEROGENEOUS AND MASSLIKE APPEARANCE TO THE REGION OF THE UTERUS/CERVIX REGION. IT ALSO A PPEARS LARGER CURRENTLY MEASURING 6.6 CM VERSUS 4.3 CM PREVIOUSLY. THE ETIOLOGY IS UNCLEAR. CORRELATE TO EXCLUDE UNDERLYING INFECTION SUCH ENDOMETRITIS VERSUS UNDERLYING NEOPLASM. 3. COLONIC DIVERTICULOSIS, GREATEST IN THE SIGMOID COLON. NO EVIDENCE FOR ACUTE DIVERTICULITIS. 4. 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 Recommend cor relation with tumor markers and GI outpatient follow-up. 5. Redemonstrated congenitally malrotated bilateral kidneys. Nonobstructive 3 mm right renal calculus .
--- NOTE | 2023-08-22 15:57 | P.PN ---
Subjective Progress Note Date: 08/22/23 Patient is a pleasant 82-year-old female with known history of MS and some residual weakness on the right side more than the left side and significant generalized weakness came in with complaints of altered mental status increased generalized weakness and also had fever. Chest x-ray did not show any pneumonia UA is not impressive for urinary tract infection patient denied any abdominal pain diarrhea. So far there is no clear source of infection patient was started on cefepime and vancomycin subsequently admitted. Patient does have leukocytosis as well.. Patient denied any single and body aches confusion appears to be improving patient was significant confused yesterday and today. General his weakness started today. Patient was tachycardic with heart rate of 150 sinus tachycardia presently around 120 patient is presently in IV fluids. Pro-calcitonin will be ordered. Influenza, RSV and COVID-19 are negative. Patient lives at an assisted living facility 08/22/2023 Patient seen in follow up today with daughter at the bedside. Currently on IV vancomycin and IV cefepime. Not having any fevers. Unknown source of infection patient does report a history of diverticulitis and will undergo abdomen CT. Infectious disease following closely. Patient does endorse back pain. Also reports recent history of vaginal bleeding thought it was maybe from her bladder and had work up with urology and ruled out a urological cause for the bleeding. Patient does have an outpatient follow up with Gynecology on September 16. Not having abdominal pain but she is distended. REVIEW OF SYSTEMS: CONSTITUTIONAL: As mentioned in HPI HEENT: No recent visual problems or hearing problems. Denied any sore throat. CARDIOVASCULAR: No chest pain, orthopnea, PND, no palpitations, no syncope. PULMONARY: No shortness of breath, no cough, no hemoptysis. GASTROINTESTINAL: No diarrhea, no nausea, no vomiting, no abdominal pain. NEUROLOGICAL: No headaches, no weakness, no numbness. PHYSICAL EXAMINATION: GENERAL: The patient is alert and oriented x3, not in any acute distress. Thin built female HEENT: Pupils are round and equally reacting to light. EOMI. No scleral icterus. No conjunctival pallor. Normocephalic, atraumatic. No pharyngeal erythema. No thyromegaly. CARDIOVASCULAR: S1 and S2 present. No murmurs, rubs, or gallops. PULMONARY: Chest is clear to auscultation, no wheezing or crackles. ABDOMEN: Soft, nontender, distended dullness noted on percussion. normoactive bowel sounds. No palpable organomegaly. MUSCULOSKELETAL: No joint swelling or deformity. EXTREMITIES: No cyanosis, clubbing, or pedal edema. NEUROLOGICAL: No focal weakness but does have significant generalized weakness patient is alert oriented 3 SKIN: No rashes. Assessment and plan -Sepsis source of infection unclear, urinalysis and chest xray not suggestive of infection pending abominal CT, ID is following closely and remains on IV Vancomycin and IV cefepime procalcitonin is elevated at 0.73 patient also had lactic acidosis. -Sinus tachycardia secondary to fever and infection, sepsis -History of multiple sclerosis without any new weakness or any new evidence of MS exacerbation -History of vaginal bleeding for the last few months has an appt with [facility] outpatient on the 13 of september was worked up by urology already. -Leukopenia -Hypokalemia replace with oral supplementation and repeat labs tomorrow GI prophylaxis DVT prophylaxis: Low-dose Lovenox subcutaneously Full Code The impression and plan of care has been dictated by Sangeeta Howell, Nurse Practitioner as directed. Dr. Aria MD I have performed a history and physical examination and medical decision making of this patient, discussed the same with the dictator, and agree with the dictators assessment and plan as written, documented as a scribe. Based on total visit time, I have performed more than 50% of this visit. Objective - Vital Signs Vital signs: Vital Signs Temp 97.5 F L 08/22/23 12:00 Pulse 70 08/22/23 12:00 Resp 18 08/22/23 12:00 BP 133/63 08/22/23 12:00 Pulse Ox 93 L 08/22/23 12:00 FiO2 Intake & Output 08/21/23 08/22/23 08/22/23 18:59 06:59 18:59 Intake Total 540 120 Balance 540 120 Weight 58.967 kg 58.967 kg Intake: Oral 540 120 Other: Voiding Method Toilet Diaper - Labs CBC & Chem 7: 08/22/23 07:28 08/22/23 07:28 Labs: Abnormal Lab Results - Last 24 Hours (Table) 08/21/23 08/21/23 08/22/23 Range/Units 14:32 14:32 07:28 WBC 1.6 L (3.8-10.6) k/uL Neutrophils # (Manual) 0.10 L* (1.3-7.7) k/uL Lymphocytes # (Manual) 0.96 L (1.0-4.8) k/uL PT 12.7 H (10.0-12.5) sec INR 1.2 H (<1.2) Potassium (3.5-5.1) mmol/L Chloride (98-107) mmol/L Carbon Dioxide (22-30) mmol/L Creatinine (0.52-1.04) mg/dL Glucose (74-99) mg/dL Calcium (8.4-10.2) mg/dL C-Reactive Protein (<1.0) mg/dL Procalcitonin 0.73 H (0.02-0.09) ng/mL 08/22/23 Range/Units 07:28 WBC (3.8-10.6) k/uL Neutrophils # (Manual) (1.3-7.7) k/uL Lymphocytes # (Manual) (1.0-4.8) k/uL PT (10.0-12.5) sec INR (<1.2) Potassium 3.1 L (3.5-5.1) mmol/L Chloride 110 H (98-107) mmol/L Carbon Dioxide 19 L (22-30) mmol/L Creatinine 0.49 L (0.52-1.04) mg/dL Glucose 130 H (74-99) mg/dL Calcium 8.1 L (8.4-10.2) mg/dL C-Reactive Protein 16.3 H (<1.0) mg/dL Procalcitonin (0.02-0.09) ng/mL Assessment and Plan Time with Patient: Less than 30
--- NOTE | 2023-08-22 17:52 | CA ---
Transthoracic Echo Report Name: Tia Cotter Age: 82 Gender: F : 1940 Exam Date: 08/22/2023 16:34 Exam Location: [place] [facility] Ht (in): 67 Wt (lb): 128 Ordering Physician: Sangeeta Howell Attending/Referring Phys: Dante HUBER [employer] Specialist Ada Chappell, MIGUEL Procedure CPT: Indications: pericardial effusion Cardiac Hx: Technical Quality: Good Contrast 1: Total Dose (mL): Contrast 2: Total Dose (mL): MEASUREMENTS (Male / Female) Normal Values 2D ECHO LV Diastolic Diameter PLAX 3.8 cm 4.2 - 5.9 / 3.9 - 5.3 cm LV Systolic Diameter PLAX 2.4 cm IVS Diastolic Thickness 0.7 cm 0.6 - 1.0 / 0.6 - 0.9 cm LVPW Diastolic Thickness 0.8 cm 0.6 - 1.0 / 0.6 - 0.9 cm LV Relative Wall Thickness 0.4 RV Internal Dim ED PLAX 2.8 cm LVOT Diameter 2.2 cm LA Systolic Diameter LX 3.2 cm 3.0 - 4.0 / 2.7 - 3.8 cm LV Diastolic Volume MOD 4C 54.9 cm??? LV Systolic Volume MOD 4C 22.3 cm??? LV Ejection Fraction MOD 4C 59.4 % LV Cardiac Index MOD 4C 2012.7 cm???/min???m??? LV Diastolic Length 4C 7.1 cm LV Systolic Length 4C 5.8 cm LV Diastolic Volume MOD 2C 56.8 cm??? LV Systolic Volume MOD 2C 28.1 cm??? LV Ejection Fraction MOD 2C 50.5 % LV Cardiac Index MOD 2C 1772.1 cm???/min???m??? LV Diastolic Length 2C 6.6 cm LV Systolic Length 2C 5.1 cm LA Volume 65.8 cm??? 18 - 58 / 22 - 52 cm??? LA Volume Index 39.8 cm???/m??? 16 - 28 cm???/m??? M-MODE Aortic Root Diameter MM 2.9 cm MV E Point Septal Separation 0.4 cm AV Cusp Separation MM 1.4 cm DOPPLER AV Peak Velocity 153.7 cm/s AV Peak Gradient 9.5 mmHg MV Peak Velocity 161.5 cm/s MV Peak Gradient 10.4 mmHg MV Mean Velocity 107.2 cm/s MV Mean Gradient 5.2 mmHg MV Velocity Time Integral 33.6 cm MV E' Velocity 6.0 cm/s TR Peak Velocity 300.1 cm/s TR Peak Gradient 36.0 mmHg Right Ventricular Systolic Press 40.4 mmHg FINDINGS Left Ventricle Left ventricular ejection fraction is estimated at 55-60 %. Small left ventricular cavity. Left ventricular wall thickness normal. Right Ventricle Normal right ventricular size. Mild pulmonary hypertension. Right ventricular systolic pressure estimated at 40 mm hg. Right Atrium Normal right atrial size. Left Atrium Moderately increased left atrial size Mitral Valve Mitral valve thickened. Mild mitral annular calcification. Mild mitral regurgitation. Aortic Valve Trileaflet aortic valve. No aortic valve stenosis or regurgitation. Tricuspid Valve Structurally normal tricuspid valve. Mild tricuspid regurgitation. Pulmonic Valve Pulmonic valve not well visualized. Pericardium Loculated small pericardial effusion by LV posterior wall Aorta Normal size aortic root and proximal ascending aorta. CONCLUSIONS Left ventricular ejection fraction is estimated at 55-60 %. Mild pulmonary hypertension. Right ventricular systolic pressure estimated at 40 mm hg. Moderately increased left atrial size. Mild mitral annular calcification. Mild mitral regurgitation. Previewed by: Dr Grayson Pierce (Electronically Signed) Final Date: 22 August 2023 17:51
[2023-08-23] MEDS: PANTOPRAZOLE 40 MG TABLET PO SCH (04:35)
[2023-08-23] MEDS: VANCOMYCIN TROUGH DUE 1 EACH MISC MISCELLANE ONE (09:02)
[2023-08-23 09:27] LABS: HGB 13.2 gm/dL (11.4-16.0); Hypochromasia Moderate; MCH 28.5 pg (25.0-35.0); MCHC 31.4 g/dL (31.0-37.0); MCV 90.7 fL (80.0-100.0); Mean Platelet Volume 10.4; Platelet Count 158 k/uL (150-450); RBC 4.64 m/uL (3.80-5.40); RDW 14.2 % (11.5-15.5); WBC 5.3 k/uL (3.8-10.6)
[2023-08-23 09:42] LABS: African American GFR (CKD) >90 (>60 ml/min/1.73 sqM); Anion Gap 11 mmol/L; Blood Urea Nitrogen 15 mg/dL (7-17); Calcium 8.7 mg/dL (8.4-10.2); Carbon Dioxide 15 mmol/L (22-30); Chloride 111 mmol/L (98-107); Glucose 98 mg/dL (74-99); Non-African American GFR(CKD) 87 (>60 ml/min/1.73 sqM); Potassium 4.2 mmol/L (3.5-5.1); Sodium 137 mmol/L (137-145)
[2023-08-23 11:23] LABS: Band Neutrophils % 5 %; Basophils # (M) 0.11 k/uL (0-0.2); Lymphocytes # (M) 1.64 k/uL (1.0-4.8); Monocytes # (M) 1.01 k/uL (0-1.0); Neutrophils % (M) 28 %; Nucleated Red Blood Cells 0 /100 WBC (0-0); Total Cells Counted 100
[2023-08-23 11:26] LABS: Toxic Granulation Present
--- NOTE | 2023-08-23 13:37 | P.PN ---
Subjective Progress Note Date: 08/23/23 Patient is a pleasant 82-year-old female with known history of MS and some residual weakness on the right side more than the left side and significant generalized weakness came in with complaints of altered mental status increased generalized weakness and also had fever. Chest x-ray did not show any pneumonia UA is not impressive for urinary tract infection patient denied any abdominal pain diarrhea. So far there is no clear source of infection patient was started on cefepime and vancomycin subsequently admitted. Patient does have leukocytosis as well.. Patient denied any single and body aches confusion appears to be improving patient was significant confused yesterday and today. General his weakness started today. Patient was tachycardic with heart rate of 150 sinus tachycardia presently around 120 patient is presently in IV fluids. Pro-calcitonin will be ordered. Influenza, RSV and COVID-19 are negative. Patient lives at an assisted living facility 08/22/2023 Patient seen in follow up today with daughter at the bedside. Currently on IV vancomycin and IV cefepime. Not having any fevers. Unknown source of infection patient does report a history of diverticulitis and will undergo abdomen CT. Infectious disease following closely. Patient does endorse back pain. Also reports recent history of vaginal bleeding thought it was maybe from her bladder and had work up with urology and ruled out a urological cause for the bleeding. Patient does have an outpatient follow up with Gynecology on September 16. Not having abdominal pain but she is distended. 08/23/2023 Patient is evaluated today sitting up in the bed with daughter at the bedside. ID following and remains on a course of antibiotics of IV vancomycin and IV cefepime. Unknown source of fever at this time and currently afebrile. White counts have normalized. Her pro-calcitonin level comes back at 0.73. Patient d id have abdominal pelvis CT completed yesterday for a febrile workup there is findings of new trace bilateral pleural effusions new trace pericardial effusion patchy obesity at the left base probably representing atelectasis rather than a developing infiltrate. Correlate for fluid overload state. There is an unusual heterogenous and masslike appearance to the region of the uterus/cervix which ap pears larger currently measuring 6.6 cm versus 4.3 cm previously. Etiology is unclear. Correlate to exclude underlying infection such as endometritis versus an underlying neoplasm. There is colonic diverticulosis however there is no evidence for acute diverticulitis. Additionally there is diffuse main pancreatic ductal dilation to 1.3 cm which may be seen with main duct I PMN. 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 Fluids were stopped and patient did have a follow-up echocardiogram done for further evaluation of the pericardial effusion. Signed Schellenberg left ventricular EF estimated at 55-60% with mild pulmonary h ypertension. There is mild mitral annular calcification and mild MR. There is a loculated small pericardial effusion but all the posterior wall. REVIEW OF SYSTEMS: CONSTITUTIONAL: As mentioned in HPI HEENT: No recent visual problems or hearing problems. Denied any sore throat. CARDIOVASCULAR: No chest pain, orthopnea, PND, no palpitations, no syncope. PULMONARY: No shortness of breath, no cough, no hemoptysis. GASTROINTESTINAL: No diarrhea, no nausea, no vomiting, no abdominal pain. bright red vaginal smearing on pad. NEUROLOGICAL: No headaches, no weakness, no numbness. PHYSICAL EXAMINATION: GENERAL: The patient is alert and oriented x3, not in any acute distress. Thin built female HEENT: Pupils are round and equally reacting to light. EOMI. No scleral icterus. No conjunctival pallor. Normocephalic, atraumatic. No pharyngeal erythema. No thyromegaly. CARDIOVASCULAR: S1 and S2 present. No murmurs, rubs, or gallops. PULMONARY: Chest is clear to auscultation, no wheezing or crackles. ABDOMEN: Soft, nontender, distended dullness noted on percussion. normoactive bowel sounds. No palpable organomegaly. MUSCULOSKELETAL: No joint swelling or deformity. EXTREMITIES: No cyanosis, clubbing, or pedal edema. NEUROLOGICAL: No focal weakness but does have significant generalized weakness patient is alert oriented 3 SKIN: No rashes. Assessment and plan -Sepsis source of infection unclear, urinalysis and chest xray not suggestive of infection and no findings of acute infection on the abdominal CT, ID is following closely and remains on IV Vancomycin and IV cefepime procalcitonin is elevated at 0.73 patient also had lactic acidosis. -Sinus tachycardia secondary to fever and infection, sepsis improving. -History of multiple sclerosis without any new weakness or any new evidence of MS exacerbation -History of vaginal bleeding for the last few months has an appt with AUDIO/VIDEO TECHNICIAN outpatient on the 13 of september was worked up by urology already. Patient initially had reported no vaginal bleeding this hospital stay but is noting some bright red smears on her sanitary pad. Patient has findings of 6.6 cm masslike area near the cervical/uterus region and we will consult gynecoloy for evaluation -Pancreatic ductal dilation on abdominal CT we will consult GI for evaluation of this. -Leukopenia resolved. -Hypokalemia normalized with supplementation GI prophylaxis DVT prophylaxis: Low-dose Lovenox subcutaneously Full Code The impression and plan of care has been dictated by Sangeeta Howell, Nurse Practitioner as directed. Dr. Aria MD I have performed a history and physical examination and medical decision making of this patient, discussed the same with the dictator, and agree with the dictators assessment and plan as written, documented as a scribe. Based on total visit time, I have performed more than 50% of this visit. Objective - Vital Signs Vital signs: Vital Signs Temp 97.4 F L 08/23/23 03:51 Pulse 100 08/23/23 03:51 Resp 16 08/23/23 03:51 BP 114/58 08/23/23 03:51 Pulse Ox 96 08/23/23 03:51 FiO2 Intake & Output 08/22/23 08/23/23 08/23/23 18:59 06:59 18:59 Intake Total 1840 Balance 1840 Intake: Intake, IV Titration 600 Amount Cefepime 2 gm In Sodium 100 Chloride 0.9% 100 ml @ 25 mls/hr IVPB Q8H [facility] Rx#: [id number] Sodium Chloride 0.9% 1, 250 000 ml @ 75 mls/hr IV . [id number] LEIG[facility] Rx#:[id number] Vancomycin 1,000 mg In 250 Sodium Chloride 0.9% 250 ml @ 125 mls/hr IVPB Q12H LE[facility] Rx#:[id number] Oral 1240 Other: Voiding Method Diaper Diaper Incontinent Incontinent # Voids 3 1 - Labs CBC & Chem 7: 08/23/23 08:47 08/23/23 08:47 Labs: Abnormal Lab Results - Last 24 Hours (Table) 08/22/23 08/22/23 Range/Units 07:28 07:28 WBC 1.6 L (3.8-10.6) k/uL Neutrophils # (Manual) 0.10 L* (1.3-7.7) k/uL Lymphocytes # (Manual) 0.96 L (1.0-4.8) k/uL Potassium 3.1 L (3.5-5.1) mmol/L Chloride 110 H (98-107) mmol/L Carbon Dioxide 19 L (22-30) mmol/L Creatinine 0.49 L (0.52-1.04) mg/dL Glucose 130 H (74-99) mg/dL Calcium 8.1 L (8.4-10.2) mg/dL C-Reactive Protein 16.3 H (<1.0) mg/dL Microbiology - Last 24 Hours (Table) 08/21/23 14:11 Blood Culture - Preliminary Blood 08/21/23 13:50 Blood Culture - Preliminary Blood Assessment and Plan Time with Patient: Less than 30
--- NOTE | 2023-08-23 14:03 | P.PN ---
Subjective Progress Note Date: 08/22/23 Principal diagnosis: Reason for follow-up is fever and leukopenia Patient is a 82-year-old female with a past medical history significant for MS patient was brought into the hospital for evaluation of slight confusion weakness and possible dehydration, patient did have a fever of 101.6 F on admission and initial workup including a chest x-ray and UA was n egative. On today's evaluation that is 08/22/2023 patient did have resolution of her fever and is afebrile this morning patient is breathing comfortably on room air denies any chest pain shortness of breath or cough no nausea vomiting or diarrhea. Patient white count slightly down to 1.6, creatinine 0.49 CRP 16.3 Pro-Ace 0.73 Objective - Vital Signs Vital signs: Vital Signs Temp 97.8 F 08/22/23 08:00 Pulse 106 H 08/22/23 08:00 Resp 18 08/22/23 08:00 BP 90/55 08/22/23 08:00 Pulse Ox 96 08/22/23 08:00 FiO2 Intake & Output 08/21/23 08/22/23 08/22/23 18:59 06:59 18:59 Intake Total 540 120 Balance 540 120 Weight 58.967 kg 58.967 kg Intake: Oral 540 120 Other: Voiding Method Toilet Diaper - Exam GENERAL DESCRIPTION: An elderly Female lying in bed in no distress RESPIRATORY SYSTEM: Unlabored breathing , decreased breath sounds at bases HEART: S1 S2 regular rate and rhythm , ABDOMEN: Soft , no tenderness EXTREMITIES: No edema feet - Labs CBC & Chem 7: 08/23/23 08:47 08/23/23 08:47 Labs: Abnormal Lab Results - Last 24 Hours (Table) 08/21/23 08/21/23 08/21/23 Range/Units 11:11 14:32 14:32 WBC (3.8-10.6) k/uL Neutrophils # (Manual) 0.11 L* (1.3-7.7) k/uL Lymphocytes # (Manual) (1.0-4.8) k/uL PT 12.7 H (10.0-12.5) sec INR 1.2 H (<1.2) Potassium (3.5-5.1) mmol/L Chloride (98-107) mmol/L Carbon Dioxide (22-30) mmol/L Creatinine (0.52-1.04) mg/dL Glucose (74-99) mg/dL Calcium (8.4-10.2) mg/dL C-Reactive Protein (<1.0) mg/dL Procalcitonin 0.73 H (0.02-0.09) ng/mL 08/22/23 08/22/23 Range/Units 07:28 07:28 WBC 1.6 L (3.8-10.6) k/uL Neutrophils # (Manual) 0.10 L* (1.3-7.7) k/uL Lymphocytes # (Manual) 0.96 L (1.0-4.8) k/uL PT (10.0-12.5) sec INR (<1.2) Potassium 3.1 L (3.5-5.1) mmol/L Chloride 110 H (98-107) mmol/L Carbon Dioxide 19 L (22-30) mmol/L Creatinine 0.49 L (0.52-1.04) mg/dL Glucose 130 H (74-99) mg/dL Calcium 8.1 L (8.4-10.2) mg/dL C-Reactive Protein 16.3 H (<1.0) mg/dL Procalcitonin (0.02-0.09) ng/mL Assessment and Plan (1) Leukopenia Current Visit: Yes Status: Acute Code(s): D72.819 - DECREASED WHITE BLOOD CELL COUNT, UNSPECIFIED SNOMED Code(s): 74714973 (2) Febrile illness Current Visit: Yes Status: Acute Code(s): R50.9 - FEVER, UNSPECIFIED SNOMED Code(s): 469907941 Plan: 1patient is 82-year female with MS who did have a fever and apparently was tachycardic in the urgent care , she did have a leukopenia elevated lactic acid initial workup including UA chest x-ray has been negative evidence of encephalitis or joint swelling and abdominal soft on clinical Examination 2the patient did have mild elevated CRP and procalcitonin. 3CT of abdominal pelvis completed report is currently pending 4-patient to continue with empiric vancomycin and cefepime will waiting further workup to be completed Dictation was produced using [employer] software. please excuse any grammatical, word or spelling errors. Time with Patient: Greater than 30
--- NOTE | 2023-08-23 14:05 | P.PN ---
Subjective Progress Note Date: 08/23/23 Principal diagnosis: Reason for follow-up is fever and leukopenia Patient is a 82-year-old female with a past medical history significant for MS patient was brought into the hospital for evaluation of slight confusion weakness and possible dehydration, patient did have a fever of 101.6 F on admission and initial workup including a chest x-ray and UA was n egative. On today's evaluation that is 08/23/2023 patient is afebrile today, the patient is breathing comfortably on room air without any for supplemental oxygen, the patient denies any chest pain shortness of breath or cough no nausea vomiting or diarrhea. Patient complaining some lower abdominal discomfort and went down or drainage Patient white count is 5.3, creatinine 0.56 Objective - Vital Signs Vital signs: Vital Signs Temp 97.4 F L 08/23/23 03:51 Pulse 98 08/23/23 12:00 Resp 16 08/23/23 12:00 BP 127/72 08/23/23 12:00 Pulse Ox 98 08/23/23 08:00 FiO2 Intake & Output 08/22/23 08/23/23 08/23/23 18:59 06:59 18:59 Intake Total 1840 120 Balance 1840 120 Intake: Intake, IV Titration 600 Amount Cefepime 2 gm In Sodium 100 Chloride 0.9% 100 ml @ 25 mls/hr IVPB Q8H [facility] Rx#: [id number] Sodium Chloride 0.9% 1, 250 000 ml @ 75 mls/hr IV . [id number] [facility] Rx#:[id number] Vancomycin 1,000 mg In 250 Sodium Chloride 0.9% 250 ml @ 125 mls/hr IVPB Q12H [facility] Rx#:[id number] Oral 1240 120 Other: Voiding Method Diaper Diaper Diaper Incontinent Incontinent Incontinent # Voids 3 1 # Bowel Movements 1 - Exam GENERAL DESCRIPTION: An elderly Female lying in bed in no distress RESPIRATORY SYSTEM: Unlabored breathing , decreased breath sounds at bases HEART: S1 S2 regular rate and rhythm , ABDOMEN: Soft , no tenderness EXTREMITIES: No edema feet - Labs CBC & Chem 7: 08/23/23 08:47 08/23/23 08:47 Labs: Abnormal Lab Results - Last 24 Hours (Table) 08/23/23 08/23/23 Range/Units 08:47 08:47 Monocytes # (Manual) 1.01 H (0-1.0) k/uL Eosinophils # (Manual) 0.80 H (0-0.7) k/uL Chloride 111 H (98-107) mmol/L Carbon Dioxide 15 L (22-30) mmol/L Microbiology - Last 24 Hours (Table) 08/21/23 14:11 Blood Culture - Preliminary Blood 08/21/23 13:50 Blood Culture - Preliminary Blood Assessment and Plan (1) Leukopenia Current Visit: Yes Status: Acute Code(s): D72.819 - DECREASED WHITE BLOOD CELL COUNT, UNSPECIFIED SNOMED Code(s): 72140464 (2) Febrile illness Current Visit: Yes Status: Acute Code(s): R50.9 - FEVER, UNSPECIFIED SNOMED Code(s): 576090893 Plan: 1patient is 82-year female with MS who did have a fever and apparently was tachycardic in the urgent care , she did have a leukopenia elevated lactic acid initial workup including UA chest x-ray has been negative evidence of encephalitis or joint swelling and abdominal soft on clinical Examination 2the patient did have mild elevated CRP and procalcitonin. 3CT of abdominal pelvis with heterogeneous appearance to the uterine cervix area and the patient did have some internal drainage likely source of her fever 4-patient to continue with cefepime will add Flagyl discontinue vancomycin await COLLECTIONS MANAGER evaluation Dictation was produced using [employer] dictation software. please excuse any grammatical, word or spelling errors. Time with Patient: Less than 30
--- NOTE | 2023-08-23 14:12 | P.OBCN ---
History of Present Illness Consult date: 08/23/23 Reason for consult: pelvic mass Chief complaint: Pt admitted for weakness History of present illness: 82 year old with known MS presented to the hospital with increased weakness. Physicians believe she has an infection but unable to identify where. I was consulted after a pelvic mass near the vaginal cuff measuring 6cm on CT scan. Pt admits to having some spotting in her depends for the last few months. She did see urology and had a neg workup. Review of Systems All systems: negative Constitutional: Denies chills, Denies fever Eyes: denies blurred vision, denies pain Ears, nose, mouth and throat: Denies headache, Denies sore throat Cardiovascular: Denies chest pain, Denies shortness of breath Respiratory: Denies cough Gastrointestinal: Denies abdominal pain, Denies diarrhea, Denies nausea, Denies vomiting Genitourinary: Denies dysuria, Denies hematuria Menstruation: Reports post hysterectomy (vaginal bleeding) Musculoskeletal: Denies myalgias Integumentary: Denies pruritus, Denies rash Neurological: Denies numbness, Denies weakness Psychiatric: Denies anxiety, Denies depression Endocrine: Denies fatigue, Denies weight change Past Medical History Additional Past Medical History / Comment(s): MS, History of Any Multi-Drug Resistant Organisms: None Reported Past Surgical History: Hysterectomy (MAYELIN BSO for benign reasons when pt was 50yo.) Past Psychological History: No Psychological Hx Reported Smoking Status: Former smoker Past Alcohol Use History: None Reported Past Drug Use History: None Reported Medications and Allergies Home Medications Medication Instructions Recorded Confirmed Type No Known Home Medications 08/21/23 08/21/23 History Allergies Allergy/AdvReac Type Severity Reaction Status Date / Time Sulfa (Sulfonamide Allergy Unknown Verified 08/21/23 10:57 Antibiotics) Penicillins AdvReac Unknown Verified 08/21/23 10:57 Exam Osteopathic Statement: *. No significant issues noted on an osteopathic structural exam other than those noted in the History and Physical/Consult. Vital Signs Temp Pulse Resp BP Pulse Ox 08/23/23 12:00 98 16 127/72 08/23/23 08:00 105 H 16 118/73 98 08/23/23 03:51 97.4 F L 100 16 114/58 96 08/23/23 00:00 97.8 F 110 H 16 120/58 94 L 08/22/23 20:00 98.6 F 119 H 17 125/69 97 08/22/23 16:00 98.3 F 103 H 18 119/69 98 Intake and Output 08/22/23 08/23/23 08/23/23 22:59 06:59 14:59 Intake Total 1720 120 Balance 1720 120 Intake: Intake, IV Titration 600 Amount Cefepime 2 gm In Sodium 100 Chloride 0.9% 100 ml @ 25 mls/hr IVPB Q8H [facility] Rx#: [id number] Sodium Chloride 0.9% 1, 250 000 ml @ 75 mls/hr IV . [id number] LEIG[facility] Rx#:[id number] Vancomycin 1,000 mg In 250 Sodium Chloride 0.9% 250 ml @ 125 mls/hr IVPB Q12H [facility] Rx#:[id number] Oral 1120 120 Other: Voiding Method Diaper Diaper Diaper Incontinent Incontinent Incontinent # Voids 3 1 # Bowel Movements 1 SVE: The introitus is small, able to place one finger. There are lumps and excressences on posterior vagina. Anterior and superior vagina, a firm mass is felt. A few pieces of tissue came off onto my glove and sent to pathology. This did increase the bleeding from the vaginal vault. Results Result Diagrams: 08/23/23 08:47 08/23/23 08:47 Abnormal Lab Results - Last 24 Hours (Table) 08/23/23 08/23/23 Range/Units 08:47 08:47 Monocytes # (Manual) 1.01 H (0-1.0) k/uL Eosinophils # (Manual) 0.80 H (0-0.7) k/uL Chloride 111 H (98-107) mmol/L Carbon Dioxide 15 L (22-30) mmol/L Microbiology - Last 24 Hours (Table) 08/21/23 14:11 Blood Culture - Preliminary Blood 08/21/23 13:50 Blood Culture - Preliminary Blood Assessment and Plan (1) Postmenopausal bleeding Current Visit: Yes Status: Acute Code(s): N95.0 - POSTMENOPAUSAL BLEEDING SNOMED Code(s): 98062753 (2) Status post hysterectomy with oophorectomy Current Visit: Yes Status: Acute Code(s): Z90.710 - ACQUIRED ABSENCE OF BOTH CERVIX AND UTERUS; Z90.721 - ACQUIRED ABSENCE OF OVARIES, UNILATERAL SNOMED Code(s): 972212088 (3) Vaginal mass Narrative/Plan: highly suspect malignancy Current Visit: Yes Status: Acute Code(s): N89.8 - OTHER SPECIFIED NONINFLAMMATORY DISORDERS OF VAGINA SNOMED Code(s): 131919194 Plan: 1. wait for pathology result. 2. discussed with pt and her daughter that she likely has some form of cancer. I do not know if it is primary vagina, endometrial, cervical or colon.
[2023-08-23] MEDS: metroNIDAZOLE 500 MG TAB PO SCH (16:41)
[2023-08-24] MEDS ORDERED: LOPERAMIDE 2 MG CAP PO PRN (15:34)
[2023-08-24] MEDS: ONDANSETRON 4 MG/2 ML VIAL IVP PRN (15:53)
--- NOTE | 2023-08-24 16:14 | P.PN ---
Subjective Progress Note Date: 08/24/23 Principal diagnosis: Reason for follow-up is fever and leukopenia Patient is a 82-year-old female with a past medical history significant for MS patient was brought into the hospital for evaluation of slight confusion weakness and possible dehydration, patient did have a fever of 101.6 F on admission and initial workup including a chest x-ray and UA was n egative. On today's evaluation that is 08/24/2023, the patient denies having any fever or any chills, the patient is breathing comfortably on room air without need for oxygen, the patient denies having any chest pain or cough and no sputum production, patient denies nausea vomiting or any diarrhea, denies any worsening lower abdominal pain or any further vaginal drainage Patient white count is 5.3, creatinine 0.56 as of 08/23/2023 Objective - Vital Signs Vital signs: Vital Signs Temp 97.2 F L 08/24/23 15:59 Pulse 105 H 08/24/23 15:59 Resp 16 08/24/23 15:59 BP 131/86 08/24/23 15:59 Pulse Ox 95 08/24/23 04:00 FiO2 Intake & Output 08/23/23 08/24/23 08/24/23 18:59 06:59 18:59 Intake Total 240 540 240 Balance 240 540 240 Intake: Oral 240 540 240 Other: Voiding Method Diaper Diaper Diaper Incontinent Incontinent Incontinent # Voids 1 # Bowel Movements 1 - Exam GENERAL DESCRIPTION: An elderly Female lying in bed in no distress RESPIRATORY SYSTEM: Unlabored breathing , decreased breath sounds at bases HEART: S1 S2 regular rate and rhythm , ABDOMEN: Soft , no tenderness EXTREMITIES: No edema feet - Labs CBC & Chem 7: 08/23/23 08:47 08/23/23 08:47 Labs: Microbiology - Last 24 Hours (Table) 08/21/23 14:11 Blood Culture - Preliminary Blood 08/21/23 13:50 Blood Culture - Preliminary Blood Assessment and Plan (1) Leukopenia Current Visit: Yes Status: Acute Code(s): D72.819 - DECREASED WHITE BLOOD CELL COUNT, UNSPECIFIED SNOMED Code(s): 16877975 (2) Febrile illness Current Visit: Yes Status: Acute Code(s): R50.9 - FEVER, UNSPECIFIED SNOMED Code(s): 802388068 Plan: 1patient is 82-year female with MS who did have a fever and apparently was tachycardic in the urgent care , she did have a leukopenia elevated lactic acid initial workup including UA chest x-ray has been negative evidence of encephalitis or joint swelling and abdominal soft on clinical Examination 2the patient did have mild elevated CRP and procalcitonin. 3CT of abdominal pelvis with heterogeneous appearance to the uterine cervix area and the patient did have some internal drainage likely source of her fever 4-patient has been evaluated by [facility] some specimen has been obtained for pathology to continue with cefepime will add Flagyl and monitor clinical course closely Dictation was produced using [employer] dictation software. please excuse any grammatical, word or spelling errors. Time with Patient: Less than 30
--- NOTE | 2023-08-24 18:02 | P.PN ---
Subjective Progress Note Date: 08/24/23 Patient is a pleasant 82-year-old female with known history of MS and some residual weakness on the right side more than the left side and significant generalized weakness came in with complaints of altered mental status increased generalized weakness and also had fever. Chest x-ray did not show any pneumonia UA is not impressive for urinary tract infection patient denied any abdominal pain diarrhea. So far there is no clear source of infection patient was started on cefepime and vancomycin subsequently admitted. Patient does have leukocytosis as well.. Patient denied any single and body aches confusion appears to be improving patient was significant confused yesterday and today. General his weakness started today. Patient was tachycardic with heart rate of 150 sinus tachycardia presently around 120 patient is presently in IV fluids. Pro-calcitonin will be ordered. Influenza, RSV and COVID-19 are negative. Patient lives at an assisted living facility 08/22/2023 Patient seen in follow up today with daughter at the bedside. Currently on IV vancomycin and IV cefepime. Not having any fevers. Unknown source of infection patient does report a history of diverticulitis and will undergo abdomen CT. Infectious disease following closely. Patient does endorse back pain. Also reports recent history of vaginal bleeding thought it was maybe from her bladder and had work up with urology and ruled out a urological cause for the bleeding. Patient does have an outpatient follow up with Gynecology on September 16. Not having abdominal pain but she is distended. 08/23/2023 Patient is evaluated today sitting up in the bed with daughter at the bedside. ID following and remains on a course of antibiotics of IV vancomycin and IV cefepime. Unknown source of fever at this time and currently afebrile. White counts have normalized. Her pro-calcitonin level comes back at 0.73. Patient d id have abdominal pelvis CT completed yesterday for a febrile workup there is findings of new trace bilateral pleural effusions new trace pericardial effusion patchy obesity at the left base probably representing atelectasis rather than a developing infiltrate. Correlate for fluid overload state. There is an unusual heterogenous and masslike appearance to the region of the uterus/cervix which ap pears larger currently measuring 6.6 cm versus 4.3 cm previously. Etiology is unclear. Correlate to exclude underlying infection such as endometritis versus an underlying neoplasm. There is colonic diverticulosis however there is no evidence for acute diverticulitis. Additionally there is diffuse main pancreatic ductal dilation to 1.3 cm which may be seen with main duct I PMN. 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 Fluids were stopped and patient did have a follow-up echocardiogram done for further evaluation of the pericardial effusion. Signed Schellenberg left ventricular EF estimated at 55-60% with mild pulmonary h ypertension. There is mild mitral annular calcification and mild MR. There is a loculated small pericardial effusion but all the posterior wall. 08/24/2023 Patient is evaluated today resting in bed her daughter at bedside. Was evaluated by OBGYN yesterday had an examination with tissues sent for pathology patient did have increased vaginal bleeding after the examination. There is high risk for malignancy. She has been mostly bed rest at this time. Today is complaining of abdominal discomfort and nausea/vomiting with increased bowel sounds. This is likely due to the antibiotics and she has been taken off IV vancomyin. Continues on IV cefepime and oral flagyl. Originally seen by PT with recommendations for home, will need re evaluation on Friday. REVIEW OF SYSTEMS: CONSTITUTIONAL: As mentioned in HPI HEENT: No recent visual problems or hearing problems. Denied any sore throat. CARDIOVASCULAR: No chest pain, orthopnea, PND, no palpitations, no syncope. PULMONARY: No shortness of breath, no cough, no hemoptysis. GASTROINTESTINAL: No diarrhea, no nausea, no vomiting, no abdominal pain. bright red vaginal smearing on pad. NEUROLOGICAL: No headaches, no weakness, no numbness. PHYSICAL EXAMINATION: GENERAL: The patient is alert and oriented x3, not in any acute distress. Thin built female HEENT: Pupils are round and equally reacting to light. EOMI. No scleral icterus. No conjunctival pallor. Normocephalic, atraumatic. No pharyngeal erythema. No thyromegaly. CARDIOVASCULAR: S1 and S2 present. No murmurs, rubs, or gallops. PULMONARY: Chest is clear to auscultation, no wheezing or crackles. ABDOMEN: Soft, nontender, distended dullness noted on percussion. normoactive bowel sounds. No palpable organomegaly. MUSCULOSKELETAL: No joint swelling or deformity. EXTREMITIES: No cyanosis, clubbing, or pedal edema. NEUROLOGICAL: No focal weakness but does have significant generalized weakness patient is alert oriented 3 SKIN: No rashes. Assessment and plan -Sepsis source of infection likely from the heterogenous mass near the cervix, urinalysis and chest xray not suggestive of infection and no findings of acute infection on the abdominal CT, ID is following closely and remains on IV Vancomycin and IV cefepime procalcitonin is elevated at 0.73 patient also had lactic acidosis. -Sinus tachycardia secondary to fever and infection, sepsis improving. -History of multiple sclerosis without any new weakness or any new evidence of MS exacerbation -History of vaginal bleeding for the last few months has an appt with S[facility]ICY ANALYST outpatient on the 13 of september was worked up by urology already. Patient initially had reported no vaginal bleeding this hospital stay but is noting some bright red smears on her sanitary pad. Patient has findings of 6.6 cm masslike area near the cervical/uterus region tissues were sent for palpation from manual examination by OBGYN with suspicion for malignancy. -Nausea and GI upset likely from antibiotic side effect. Patient has been started on zofran and imodium PRN if she develops diarrhea. -Pancreatic ductal dilation on abdominal CT we will consult GI for evaluation of this. -Leukopenia resolved. -Hypokalemia normalized with supplementation GI prophylaxis DVT prophylaxis: Low-dose Lovenox subcutaneously Full Code The impression and plan of care has been dictated by Sangeeta Howell, Nurse Practitioner as directed. Dr. Aria MD I have performed a history and physical examination and medical decision making of this patient, discussed the same with the dictator, and agree with the dictators assessment and plan as written, documented as a scribe. Based on total visit time, I have performed more than 50% of this visit. Objective - Vital Signs Vital signs: Vital Signs Temp 97.2 F L 08/24/23 15:59 Pulse 105 H 08/24/23 15:59 Resp 16 08/24/23 15:59 BP 131/86 08/24/23 15:59 Pulse Ox 95 08/24/23 04:00 FiO2 Intake & Output 08/23/23 08/24/23 08/24/23 18:59 06:59 18:59 Intake Total 240 540 240 Balance 240 540 240 Intake: Oral 240 540 240 Other: Voiding Method Diaper Diaper Diaper Incontinent Incontinent Incontinent # Voids 1 2 # Bowel Movements 1 - Labs CBC & Chem 7: 08/23/23 08:47 08/23/23 08:47 Labs: Microbiology - Last 24 Hours (Table) 08/21/23 14:11 Blood Culture - Preliminary Blood 08/21/23 13:50 Blood Culture - Preliminary Blood Assessment and Plan Time with Patient: Less than 30
--- NOTE | 2023-08-25 11:41 | XR ---
EXAMINATION TYPE: XR chest 2V DATE OF EXAM: 08/25/2023 COMPARISON: 08/21/2023 INDICATION: Hypoxia TECHNIQUE: Frontal and lateral views of the chest are obtained. FINDINGS: The heart size is normal. The pulmonary vasculature is normal. There is blunting the right costophrenic angle. Small left pleural effusion is present.. IMPRESSION: 1. Small left pleural effusion. Minimal right pleural effusion may be present.
[2023-08-25 13:24] LABS: Albumin 2.5 g/dL (3.5-5.0); Bilirubin, Delta 0.2 mg/dL (0.0-0.2); Bilirubin,Unconjugated 0.2 mg/dL (0.0-1.1); Total Bilirubin 0.4 mg/dL (0.2-1.3)
--- NOTE | 2023-08-25 13:31 | P.CONS ---
History of Present Illness - Reason for Consult Consult date: 08/25/23 Dialted pancreatic duct Requesting physician: Sangeeta Howell - Chief Complaint Weakness irregular heart rate - History of Present Illness On the seventh pleasant 82-year-old female with a history of MS who had presented to the emergency department on 08/21/2023 with complaints of weakness, irregular heart rate possible dehydration. Reported patient with some confusion and decreased appetite for several days prior to admission. Also noted was some mild cough, fever and tachycardia. Was also noted that patient had been having vaginal bleeding for last 2 months duration. She was noted on admission to have a max temp of 101.6, she was admitted for fever and infection. Started on antibiotics. She had a CT of the abdomen and pelvis which reported unusual hete rogeneous and masslike appearance to the region of the uterus cervix. Colonic diverticulosis and sigmoid colon, diffuse main pancreatic ductal dilation to 1.3 cm. Gastroenterology was consulted for dilated and chronic duct. He denies any previous issues with her pancreas. She denies any abdominal pain, epigastric or right upper quadrant pain. States that she does have some nausea with eating but that has resolved. She states she possibly believe she's had some weight loss, but is unsure how much. Admitting labs WBC 2.9 hemoglobin 14.5 hematocrit 44 platelet count 204,000 neutrophils were 0.11 was 1.2 sodium 138 potassium 4.1 13 creatinine 0.5 total bilirubin 1.4 AST 24 ALT 16 alkaline phosphatase 85, CRP was 16.3 patient was negative for influenza and Covid 19 Review of Systems REVIEW OF SYSTEMS: CARDIOPULMONARY: Came in with irregular, racing heartbeat. Gastrointestinal: No abdominal pain. No nausea or vomiting. No hematemesis, coffee-ground emesis. No rectal bleeding, or melena. GENITOURINARY: No dysuria or hematuria. MUSCULOSKELETAL: Reports normal range of motion. SKIN: No rashes. No jaundice. ENDOCRINE: No chills, fevers. No excessive weight gain or loss. No polydipsia or polyuria. PSYCHIATRIC: Unremarkable. NEUROLOGY: No change in mental status. Denies dizziness, headache. ENT: Vision unremarkable. CONSTITUTIONAL: No recent weight loss. Complaints of fever, decreased appetite chills, night sweats. Past Medical History Additional Past Medical History / Comment(s): MS, History of Any Multi-Drug Resistant Organisms: None Reported Past Surgical History: Hysterectomy (MAYELIN BSO for benign reasons when pt was 50yo.) Past Psychological History: No Psychological Hx Reported Smoking Status: Former smoker Past Alcohol Use History: None Reported Past Drug Use History: None Reported Medications and Allergies Home Medications Medication Instructions Recorded Confirmed Type No Known Home Medications 08/21/23 08/21/23 History Allergies Allergy/AdvReac Type Severity Reaction Status Date / Time Sulfa (Sulfonamide Allergy Unknown Verified 08/21/23 10:57 Antibiotics) Penicillins AdvReac Unknown Verified 08/21/23 10:57 Physical Exam Vitals: Vital Signs Temp Pulse Resp BP Pulse Ox 08/25/23 08:50 97.8 F 116 H 16 170/79 96 08/25/23 04:00 97.6 F 100 16 152/75 90 L 08/25/23 02:00 98 16 08/25/23 00:00 98.0 F 98 16 149/73 95 08/24/23 20:00 97.4 F L 102 H 16 151/75 97 08/24/23 15:59 97.2 F L 105 H 16 131/86 Intake and Output 08/24/23 08/25/23 08/25/23 22:59 06:59 14:59 Intake Total 118 Balance 118 Intake: Oral 118 Other: Voiding Method Diaper Diaper Diaper Incontinent Incontinent Incontinent # Voids 1 2 2 # Bowel Movements 1 General appearance: The patient is alert, oriented, appears in no acute distress. HET: Head is normocephalic and atraumatic. Conjunctiva pink. Sclera anicteric. Neck: Supple without lymphadenopathy. Trachea midline. Heart: Regular. Lungs: Equal expansion, normal respiratory effort. Abdomen: Soft, nontender, nondistended with bowel sounds. No guarding or rigidity. Skin: No rashes. No jaundice. Extremities: Normal skin color and turgor. No pedal edema. Neurological: No focal deficits. Alert and oriented x3. Results CBC & Chem 7: 08/23/23 08:47 08/23/23 08:47 Labs: Microbiology - Last 24 Hours (Table) 08/21/23 14:11 Blood Culture - Preliminary Blood 08/21/23 13:50 Blood Culture - Preliminary Blood Comments: CT abdomen and pelvis with contrast report states trace bilateral pleural effusions. New trace pericardial effusion. Patchy opacity at the left base probably represents atelectasis rather than developing infiltrate. Clinically correlate. Also correlate for any signs or symptoms of fluid overload state. Unusual heterogeneous masslike appearance to the region of the uterus/cervix region. It also appears larger currently measuring 6.6 cm versus 4.3 cm previously. The etiology is unclear. Correlate to exclude underlying infection such as endometriosis versus underlying neoplasm. Colonic diverticulosis, greatest in the sigmoid colon. No evidence for acute diverticulitis. 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 Recommend correlation with tumor markers and GI outpatient follow-up. Redemonstrated congenitally malrotated bilateral kidneys. Nonobstructive 3 mm right renal calculus. Assessment and Plan (1) Dilated pancreatic duct Narrative/Plan: 82-year-old female actually presenting for fever, cough, weakness and rapid heartbeat was also noted to have complaints of vaginal bleeding for last few months duration. Patient underwent CT of the abdomen and pelvis noting a vaginal mass as well as dilated pancreatic duct measuring up to 1.3 cm. Patient did have mildly elevated total bilirubin of 1.3 on admission with normal LFTs. No further labs studies to compare. Gynecology is following patient and patient was noted to have palpable vaginal mass that they stated was concerning for possible cancer. Pathology is currently pending. Unclear significance of pancreatic duct dilation. Patient is without any complaints of abdominal pain. Will order CA-19-9, and repeat LFTs. Patient can otherwise follow up with gastroenterology the outpatient setting for further evaluation and workup. Current Visit: Yes Status: Acute Code(s): K86.89 - OTHER SPECIFIED DISEASES OF PANCREAS SNOMED Code(s): 717641301 (2) Postmenopausal bleeding Current Visit: Yes Status: Acute Code(s): N95.0 - POSTMENOPAUSAL BLEEDING SNOMED Code(s): 38474864 (3) Status post hysterectomy with oophorectomy Current Visit: Yes Status: Acute Code(s): Z90.710 - ACQUIRED ABSENCE OF BOTH CERVIX AND UTERUS; Z90.721 - ACQUIRED ABSENCE OF OVARIES, UNILATERAL SNOMED Code(s): 562008308 (4) Vaginal mass Narrative/Plan: To follow with gynecology for pathology results Current Visit: Yes Status: Acute Code(s): N89.8 - OTHER SPECIFIED NONINFL AMMATORY DISORDERS OF VAGINA SNOMED Code(s): 359726422 Plan: 1. Continue symptomatic supportive care 2. Continue with recommendations from oncology 3. CA-19-9, hepatic function panel ordered 4. No plans on any further workup for pancreatic ductal dilation at this time, patient may follow-up with gastroenterology in outpatient setting for further workup. Thank you for this consultation. Patient is cleared from gastroenterology for discharge. Dr. Jason Lazaro I agree with the dictator's note, documented as a scribe by Mary Kay Lawson.
[2023-08-25] MEDS: FUROSEMIDE 10 MG/ML 2 ML VIAL IV ONE (13:43)
[2023-08-25] MEDS: METOPROLOL TARTRATE 12.5 MG TAB PO SCH (13:43)
--- NOTE | 2023-08-25 20:06 | P.PN ---
Subjective Progress Note Date: 08/25/23 Patient is a pleasant 82-year-old female with known history of MS and some residual weakness on the right side more than the left side and significant generalized weakness came in with complaints of altered mental status increased generalized weakness and also had fever. Chest x-ray did not show any pneumonia UA is not impressive for urinary tract infection patient denied any abdominal pain diarrhea. So far there is no clear source of infection patient was started on cefepime and vancomycin subsequently admitted. Patient does have leukocytosis as well.. Patient denied any single and body aches confusion appears to be improving patient was significant confused yesterday and today. General his weakness started today. Patient was tachycardic with heart rate of 150 sinus tachycardia presently around 120 patient is presently in IV fluids. Pro-calcitonin will be ordered. Influenza, RSV and COVID-19 are negative. Patient lives at an assisted living facility 08/22/2023 Patient seen in follow up today with daughter at the bedside. Currently on IV vancomycin and IV cefepime. Not having any fevers. Unknown source of infection patient does report a history of diverticulitis and will undergo abdomen CT. Infectious disease following closely. Patient does endorse back pain. Also reports recent history of vaginal bleeding thought it was maybe from her bladder and had work up with urology and ruled out a urological cause for the bleeding. Patient does have an outpatient follow up with Gynecology on September 16. Not having abdominal pain but she is distended. 08/23/2023 Patient is evaluated today sitting up in the bed with daughter at the bedside. ID following and remains on a course of antibiotics of IV vancomycin and IV cefepime. Unknown source of fever at this time and currently afebrile. White counts have normalized. Her pro-calcitonin level comes back at 0.73. Patient d id have abdominal pelvis CT completed yesterday for a febrile workup there is findings of new trace bilateral pleural effusions new trace pericardial effusion patchy obesity at the left base probably representing atelectasis rather than a developing infiltrate. Correlate for fluid overload state. There is an unusual heterogenous and masslike appearance to the region of the uterus/cervix which ap pears larger currently measuring 6.6 cm versus 4.3 cm previously. Etiology is unclear. Correlate to exclude underlying infection such as endometritis versus an underlying neoplasm. There is colonic diverticulosis however there is no evidence for acute diverticulitis. Additionally there is diffuse main pancreatic ductal dilation to 1.3 cm which may be seen with main duct I PMN. 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 Fluids were stopped and patient did have a follow-up echocardiogram done for further evaluation of the pericardial effusion. Signed Schellenberg left ventricular EF estimated at 55-60% with mild pulmonary h ypertension. There is mild mitral annular calcification and mild MR. There is a loculated small pericardial effusion but all the posterior wall. 08/24/2023 Patient is evaluated today resting in bed her daughter at bedside. Was evaluated by OBGYN yesterday had an examination with tissues sent for pathology patient did have increased vaginal bleeding after the examination. There is high risk for malignancy. She has been mostly bed rest at this time. Today is complaining of abdominal discomfort and nausea/vomiting with increased bowel sounds. This is likely due to the antibiotics and she has been taken off IV vancomyin. Continues on IV cefepime and oral flagyl. Originally seen by PT with recommendations for home, will need re evaluation on Friday. 08/25/2023 Patient remains on the step down unit can be downgraded to med/surg. Pathology pending from cervical tissue sample. Per gynecology this can be followed up outpatient and patient can needs to see [facility] BUSINESS CLERK/ONC. She was taken off IV vancomycin and started on flagyl with the cefepime and today she reports that her abdominal cramping has resolved. She has not had any loose stools. She has no pain. She was also seen in consultation by GI services for the dilated pancreatic duct and will follow up outpatient in September. Patient was re evaluated by physical therapy does require subacute rehab. REVIEW OF SYSTEMS: CONSTITUTIONAL: As mentioned in HPI HEENT: No recent visual problems or hearing problems. Denied any sore throat. CARDIOVASCULAR: No chest pain, orthopnea, PND, no palpitations, no syncope. PULMONARY: No shortness of breath, no cough, no hemoptysis. GASTROINTESTINAL: No diarrhea, no nausea, no vomiting, no abdominal pain. bright red vaginal smearing on pad. NEUROLOGICAL: No headaches, no weakness, no numbness. PHYSICAL EXAMINATION: GENERAL: The patient is alert and oriented x3, not in any acute distress. Thin built female HEENT: Pupils are round and equally reacting to light. EOMI. No scleral icterus. No conjunctival pallor. Normocephalic, atraumatic. No pharyngeal erythema. No thyromegaly. CARDIOVASCULAR: S1 and S2 present. No murmurs, rubs, or gallops. PULMONARY: Chest is clear to auscultation, no wheezing or crackles. ABDOMEN: Soft, nontender, distended dullness noted on percussion. normoactive bowel sounds. No palpable organomegaly. MUSCULOSKELETAL: No joint swelling or deformity. EXTREMITIES: No cyanosis, clubbing, or pedal edema. NEUROLOGICAL: No focal weakness but does have significant generalized weakness patient is alert oriented 3 SKIN: No rashes. Assessment and plan -Sepsis source of infection likely from the heterogenous mass near the cervix, urinalysis and chest xray not suggestive of infection and no findings of acute infection on the abdominal CT, ID is following closely and remains on IV cefepime oral flagyl was added. procalcitonin is elevated at 0.73 patient also had lactic acidosis. Recommending 10 day course of antibiotics on discharge. -Sinus tachycardia secondary to fever and infection, sepsis improving. -History of multiple sclerosis without any new weakness or any new evidence of MS exacerbation -History of vaginal bleeding for the last few months has an appt with [employer] BUSINESS CLERK outpatient on the 13 of september was worked up by urology already. Patient in itially had reported no vaginal bleeding this hospital stay but is noting some bright red smears on her sanitary pad. Patient has findings of 6.6 cm masslike area near the cervical/uterus region tissues were sent for pathology from manual examination by OBGYN with suspicion for malignancy. -Nausea and GI upset likely from antibiotic side effect. Patient has been started on zofran and imodium PRN if she develops diarrhea. GI upset today improved after being taken off the vancomycin. -Pancreatic ductal dilation on abdominal CT we will consult GI for evaluation of this. -Leukopenia resolved. -Hypokalemia normalized with supplementation GI prophylaxis DVT prophylaxis: Low-dose Lovenox subcutaneously Full Code Plan for discharge to subacute rehab tomorrow. The impression and plan of care has been dictated by Sangeeta Howell Nurse Practitioner as directed. Dr. Aria MD I have performed a history and physical examination and medical decision making of this patient, discussed the same with the dictator, and agree with the dictators assessment and plan as written, documented as a scribe. Based on total visit time, I have performed more than 50% of this visit. Objective - Vital Signs Vital signs: Vital Signs Temp 97.6 F 08/25/23 04:00 Pulse 100 08/25/23 04:00 Resp 16 08/25/23 04:00 BP 152/75 08/25/23 04:00 Pulse Ox 90 L 08/25/23 04:00 FiO2 Intake & Output 08/24/23 08/25/23 08/25/23 18:59 06:59 18:59 Intake Total 240 Balance 240 Intake: Oral 240 Other: Voiding Method Diaper Diaper Incontinent Incontinent # Voids 2 2 - Labs CBC & Chem 7: 08/23/23 08:47 08/23/23 08:47 Labs: Microbiology - Last 24 Hours (Table) 08/21/23 14:11 Blood Culture - Preliminary Blood 08/21/23 13:50 Blood Culture - Preliminary Blood Assessment and Plan Time with Patient: Less than 30
[2023-08-26 06:51] LABS: African American GFR (CKD) >90 (>60 ml/min/1.73 sqM); Anion Gap 8 mmol/L; Blood Urea Nitrogen 15 mg/dL (7-17); Calcium 8.2 mg/dL (8.4-10.2); Carbon Dioxide 22 mmol/L (22-30); Chloride 105 mmol/L (98-107); Glucose 87 mg/dL (74-99); Non-African American GFR(CKD) 89 (>60 ml/min/1.73 sqM); Potassium 3.2 mmol/L (3.5-5.1); Sodium 135 mmol/L (137-145)
--- NOTE | 2023-08-26 10:17 | P.PN ---
Subjective Progress Note Date: 08/26/23 Principal diagnosis: Dilated panceatic duct This is a pleasant 82-year-old female with a history of MS who had presented to the emergency department on 08/21/2023 with complaints of weakness, irregular heart rate possible dehydration. Reported patient with some confusion and de creased appetite for several days prior to admission. Also noted was some mild cough, fever and tachycardia. Was also noted that patient had been having vaginal bleeding for last 2 months duration. She was noted on admission to have a max temp of 101.6, she was admitted for fever and infection. Started on antibiotics. She had a CT of the abdomen and pelvis which reported unusual heterogeneous and masslike appearance to the region of the uterus cervix. Colonic diverticulosis and sigmoid colon, diffuse main pancreatic ductal dilation to 1.3 cm. Gastroenterology was consulted for dilated and chronic duct. He denies any previous issues with her pancreas. She denies any abdominal pain, epigastric or right upper quadrant pain. States that she does have some nausea with eating but that has resolved. She states she possibly believe she's had some weight loss, but is unsure how much. 08/26/2023 Patient is seen and examined today as a follow-up. She is without any complaints of abdominal pain or epigastric pain. No nausea or vomiting. CA-19-9 6.5, total bilirubin 0.4 AST 30 ALT 18 alkaline phosphatase 76. Objective - Vital Signs Vital signs: Vital Signs Temp 97.9 F 08/26/23 03:23 Pulse 81 08/26/23 03:23 Resp 16 08/26/23 03:23 BP 136/69 08/26/23 03:23 Pulse Ox 94 L 08/26/23 03:23 FiO2 Intake & Output 08/25/23 08/26/23 08/26/23 18:59 06:59 18:59 Intake Total 358 10 Output Total 400 Balance 358 -390 Intake: IV 10 Invasive Line 4 10 Oral 358 Output: Urine 400 Other: Voiding Method Diaper Diaper Incontinent Incontinent External Catheter # Voids 1 3 # Bowel Movements 1 - Exam General appearance: The patient is alert, oriented, appears in no acute distress. HET: Head is normocephalic and atraumatic. Conjunctiva pink. Sclera anicteric. Neck: Supple without lymphadenopathy. Abdomen: Soft, nontender, nondistended with bowel sounds. No guarding or rig idity. Extremities: Normal skin color and turgor. No pedal edema Skin: No rashes, no jaundice Neurological: No focal deficits. Alert and oriented. - Labs CBC & Chem 7: 08/23/23 08:47 08/26/23 05:53 Labs: Abnormal Lab Results - Last 24 Hours (Table) 08/25/23 08/26/23 Range/Units 12:42 05:53 Sodium 135 L (137-145) mmol/L Potassium 3.2 L (3.5-5.1) mmol/L Calcium 8.2 L (8.4-10.2) mg/dL Total Protein 5.0 L (6.3-8.2) g/dL Albumin 2.5 L (3.5-5.0) g/dL Assessment and Plan (1) Dilated pancreatic duct Narrative/Plan: 82-year-old female actually presenting for fever, cough, weakness and rapid heartbeat was also noted to have complaints of vaginal bleeding for last few months duration. Patient underwent CT of the abdomen and pelvis noting a vaginal mass as well as dilated pancreatic duct measuring up to 1.3 cm. Patient did have mildly elevated total bilirubin of 1.3 on admission with normal LFTs. No further labs studies to compare. Gynecology is following patient and patient was noted to have palpable vaginal mass that they stated was concerning for possible cancer. Pathology is currently pending. Unclear significance of pancreatic duct dilation. Patient is without any complaints of abdominal pain. Patient can otherwise follow up with gastroenterology the outpatient setting for further evaluation and workup. 1019 9 within normal limits, liver function tests all within normal limits. Total bilirubin 0.4 AST 30 ALT 18 alkaline phosphatase 76 Current Visit: Yes Status: Acute Code(s): K86.89 - OTHER SPECIFIED DISEASES OF PANCREAS SNOMED Code(s): 522213891 (2) Postmenopausal bleeding Current Visit: Yes Status: Acute Code(s): N95.0 - POSTMENOPAUSAL BLEEDING SNOMED Code(s): 17246017 (3) Status post hysterectomy with oophorectomy Current Visit: Yes Status: Acute Code(s): Z90.710 - ACQUIRED ABSENCE OF BOTH CERVIX AND UTERUS; Z90.721 - ACQUIRED ABSENCE OF OVARIES, UNILATERAL SNOMED Code(s): 596716245 (4) Vaginal mass Narrative/Plan: To follow with gynecology for pathology results Current Visit: Yes Status: Acute Code(s): N89.8 - OTHER SPECIFIED NONINFLAMMATORY DISORDERS OF VAGINA SNOMED Code(s): 804912902 Plan: 1. Continue symptomatic supportive care 2. Continue with recommendations from oncology 3. CA-19-9 within normal limits, LFTs all within normal limits 4. No plans on any further workup for pancreatic ductal dilation at this time, patient may follow-up with gastroenterology in outpatient setting for further workup. Thank you for this consultation. Patient is cleared from gastroenterology for discharge. We will sign off at this time. Dr. Jason Lazaro I agree with the dictator's note, documented as a scribe by Mary Kay Lawson.
[2023-08-26] MEDS: POTASSIUM CHLORIDE ER 20 MEQ TAB.ER PO SCH (17:00)
--- NOTE | 2023-08-26 22:56 | P.PN ---
Subjective Progress Note Date: 08/26/23 Patient is a pleasant 82-year-old female with known history of MS and some residual weakness on the right side more than the left side and significant generalized weakness came in with complaints of altered mental status increased generalized weakness and also had fever. Chest x-ray did not show any pneumonia UA is not impressive for urinary tract infection patient denied any abdominal pain diarrhea. So far there is no clear source of infection patient was started on cefepime and vancomycin subsequently admitted. Patient does have leukocytosis as well.. Patient denied any single and body aches confusion appears to be improving patient was significant confused yesterday and today. General his weakness started today. Patient was tachycardic with heart rate of 150 sinus tachycardia presently around 120 patient is presently in IV fluids. Pro-calcitonin will be ordered. Influenza, RSV and COVID-19 are negative. Patient lives at an assisted living facility 08/22/2023 Patient seen in follow up today with daughter at the bedside. Currently on IV vancomycin and IV cefepime. Not having any fevers. Unknown source of infection patient does report a history of diverticulitis and will undergo abdomen CT. Infectious disease following closely. Patient does endorse back pain. Also reports recent history of vaginal bleeding thought it was maybe from her bladder and had work up with urology and ruled out a urological cause for the bleeding. Patient does have an outpatient follow up with Gynecology on September 16. Not having abdominal pain but she is distended. 08/23/2023 Patient is evaluated today sitting up in the bed with daughter at the bedside. ID following and remains on a course of antibiotics of IV vancomycin and IV cefepime. Unknown source of fever at this time and currently afebrile. White counts have normalized. Her pro-calcitonin level comes back at 0.73. Patient d id have abdominal pelvis CT completed yesterday for a febrile workup there is findings of new trace bilateral pleural effusions new trace pericardial effusion patchy obesity at the left base probably representing atelectasis rather than a developing infiltrate. Correlate for fluid overload state. There is an unusual heterogenous and masslike appearance to the region of the uterus/cervix which ap pears larger currently measuring 6.6 cm versus 4.3 cm previously. Etiology is unclear. Correlate to exclude underlying infection such as endometritis versus an underlying neoplasm. There is colonic diverticulosis however there is no evidence for acute diverticulitis. Additionally there is diffuse main pancreatic ductal dilation to 1.3 cm which may be seen with main duct I PMN. 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 Fluids were stopped and patient did have a follow-up echocardiogram done for further evaluation of the pericardial effusion. Signed Schellenberg left ventricular EF estimated at 55-60% with mild pulmonary h ypertension. There is mild mitral annular calcification and mild MR. There is a loculated small pericardial effusion but all the posterior wall. 08/24/2023 Patient is evaluated today resting in bed her daughter at bedside. Was evaluated by OBGYN yesterday had an examination with tissues sent for pathology patient did have increased vaginal bleeding after the examination. There is high risk for malignancy. She has been mostly bed rest at this time. Today is complaining of abdominal discomfort and nausea/vomiting with increased bowel sounds. This is likely due to the antibiotics and she has been taken off IV vancomyin. Continues on IV cefepime and oral flagyl. Originally seen by PT with recommendations for home, will need re evaluation on Friday. 08/25/2023 Patient remains on the step down unit can be downgraded to med/surg. Pathology pending from cervical tissue sample. Per gynecology this can be followed up outpatient and patient can needs to see [facility] THEATER SPECIALIST/ONC. She was taken off IV vancomycin and started on flagyl with the cefepime and today she reports that her abdominal cramping has resolved. She has not had any loose stools. She has no pain. She was also seen in consultation by GI services for the dilated pancreatic duct and will follow up outpatient in September. Patient was re evaluated by physical therapy does require subacute rehab. 08/26/2023 Patient is evaluated today sitting up in the bed. Reports abdominal discomfort has resolved. On IV cefepime with recommendations for transition to oral ceftin on discharge. Pending insurance authorization for discharge. Sodium 135, potassium 3.2 today. Hemodynamically stable. REVIEW OF SYSTEMS: CONSTITUTIONAL: As mentioned in HPI HEENT: No recent visual problems or hearing problems. Denied any sore throat. CARDIOVASCULAR: No chest pain, orthopnea, PND, no palpitations, no syncope. PULMONARY: No shortness of breath, no cough, no hemoptysis. GASTROINTESTINAL: No diarrhea, no nausea, no vomiting, no abdominal pain. bright red vaginal smearing on pad. NEUROLOGICAL: No headaches, no weakness, no numbness. PHYSICAL EXAMINATION: GENERAL: The patient is alert and oriented x3, not in any acute distress. Thin built female HEENT: Pupils are round and equally reacting to light. EOMI. No scleral icterus. No conjunctival pallor. Normocephalic, atraumatic. No pharyngeal erythema. No thyromegaly. CARDIOVASCULAR: S1 and S2 present. No murmurs, rubs, or gallops. PULMONARY: Chest is clear to auscultation, no wheezing or crackles. ABDOMEN: Soft, nontender, distended dullness noted on percussion. normoactive bowel sounds. No palpable organomegaly. MUSCULOSKELETAL: No joint swelling or deformity. EXTREMITIES: No cyanosis, clubbing, or pedal edema. NEUROLOGICAL: No focal weakness but does have significant generalized weakness patient is alert oriented 3 SKIN: No rashes. Assessment and plan -Sepsis source of infection likely from the heterogenous mass near the cervix, urinalysis and chest xray not suggestive of infection and no findings of acute infection on the abdominal CT, ID is following closely and remains on IV cefepime oral flagyl was added. procalcitonin is elevated at 0.73 patient also had lactic acidosis. Recommending 10 day course of antibiotics on discharge. -Sinus tachycardia secondary to fever and infection, sepsis improving. -History of multiple sclerosis without any new weakness or any new evidence of MS exacerbation -History of vaginal bleeding for the last few months has an appt with [facility] THEATER SPECIALIST outpatient on the 13 of september was worked up by urology already. Patient initially had reported no vaginal bleeding this hospital stay but is noting some bright red smears on her sanitary pad. Patient has findings of 6.6 cm masslike area near the cervical/uterus region tissues were sent for pathology from manual examination by OBGYN with suspicion for malignancy. -Nausea and GI upset likely from antibiotic side effect. Patient has been started on zofran and imodium PRN if she develops diarrhea. GI upset today improved after being taken off the vancomycin. -Pancreatic ductal dilation on abdominal CT GI will follow up outpatient. -Leukopenia resolved. -Hypokalemia normalized with supplementation GI prophylaxis DVT prophylaxis: Low-dose Lovenox subcutaneously Full Code Plan for discharge to subacute rehab tomorrow. The impression and plan of care has been dictated by Sangeeta Howell, Nurse Practitioner as directed. Dr. Aria MD I have performed a history and physical examination and medical decision making of this patient, discussed the same with the dictator, and agree with the dictators assessment and plan as written, documented as a scribe. Based on total visit time, I have performed more than 50% of this visit. Objective - Vital Signs Vital signs: Vital Signs Temp 97.8 F 08/26/23 20:00 Pulse 82 08/26/23 20:00 Resp 18 08/26/23 20:00 BP 139/63 08/26/23 20:00 Pulse Ox 95 08/26/23 20:00 FiO2 Intake & Output 08/26/23 08/26/23 08/27/23 06:59 18:59 06:59 Intake Total 10 580 Output Total 400 700 Balance -390 -120 Intake: IV 10 Invasive Line 4 10 Intake, IV Titration 100 Amount Cefepime 2 gm In Sodium 100 Chloride 0.9% 100 ml @ 25 mls/hr IVPB Q8H [facility] Rx#: [id number] Oral 480 Output: Urine 400 700 Other: Voiding Method Diaper Diaper Diaper Incontinent Incontinent Incontinent External Catheter External Catheter External Catheter # Voids 3 - Labs CBC & Chem 7: 08/23/23 08:47 08/26/23 05:53 Labs: Abnormal Lab Results - Last 24 Hours (Table) 08/26/23 Range/Units 05:53 Sodium 135 L (137-145) mmol/L Potassium 3.2 L (3.5-5.1) mmol/L Calcium 8.2 L (8.4-10.2) mg/dL Microbiology - Last 24 Hours (Table) 08/21/23 14:11 Blood Culture - Final Blood 08/21/23 13:50 Blood Culture - Final Blood Assessment and Plan Time with Patient: Less than 30
--- NOTE | 2023-08-27 09:26 | P.DS ---
Providers Date of admission: 08/21/23 13:19 Attending physician: Olena Knapp Consults: 08/21/23 13:35 Consult Physician Routine Consulting Provider: Juan Jose Platt Consult Reason/Comments: Sepsis, unknown source Do you want consulting provider notified?: Yes 08/22/23 15:53 Consult Physician Routine Consulting Provider: Radha Maddox Consult Reason/Comments: uterine/cervical mass 6.6 cm Do you want consulting provider notified?: Yes Primary care physician: [facility] Course: Diagnoses: -Sepsis source of infection likely from the heterogenous mass near the cervix, urinalysis and chest xray not suggestive of infection and no findings of acute infection on the abdominal CT, ID is following closely and remains on IV cefepime oral flagyl was added. procalcitonin is elevated at 0.73 patient also had lactic acidosis. Recommending 10 day course of antibiotics on discharge. -Sinus tachycardia secondary to fever and infection, sepsis improving. -History of multiple sclerosis without any new weakness or any new evidence of MS exacerbation -History of vaginal bleeding for the last few months has an appt with [facility] TECHNICIAN outpatient on the 13 of september was worked up by urology already. Patient initially had reported no vaginal bleeding this hospital stay but is noting some bright red smears on her sanitary pad. Patient has findings of 6.6 cm masslike area near the cervical/uterus region tissues were sent for pathology from manual examination by OBGYN with suspicion for malignancy. -Nausea and GI upset likely from antibiotic side effect. Patient has been started on zofran and imodium PRN if she develops diarrhea. GI upset today improved after being taken off the vancomycin. -Pancreatic ductal dilation on abdominal CT GI will follow up outpatient. -Leukopenia resolved. -Hypokalemia normalized with supplementation Hospital course: Patient is a pleasant 82-year-old female with known history of MS and some residual weakness on the right side more than the left side and significant generalized weakness came in with complaints of altered mental status increased generalized weakness and also had fever. Patient is found to have sepsis with fever and possible infected cervical mass seen on the CAT scan of the abdomen and pelvis about 6.6 cm. Patient reports minimal vaginal bleeding for about 2 months, she's been evaluated by decontamination technician Dr. Maddox, cervical biopsy was obtained and result is pending. Patient was cleared by Dr. Stan chin for discharge and follow-up as an outpatient. Patient is aware that she has cervical mass and a biopsy is pending and she intends to follow up as an outpatient. Patient was treated with IV antibiotics with cefepime and also Flagyl with lidocaine followed closely. Fever subsided and her symptoms improved. No leukocytosis and this can be switched to oral antibiotics upon discharge per ID team recommendation. GI team evaluated patient for dilated pancreatic duct at 1.3 cm, no specific pathology was found and GI team to her for discharge with recommendation for outpatient follow-up with Dr. Lazaro 2 weeks patient informed and she agrees. The patient was lying in bed, generally weak, says that her vaginal bleeding is minimal today. She denies any other symptoms. She denies chest pain or dyspnea. No other change in her urine or bowel habits. Patient is afebrile she can go to subacute rehab today. Patient was cleared for discharge by all consultants including ID team, GI and decontamination technician. Problems and management plan were discussed with the patient and he verbalized understanding and acceptance Patient was found stable and can be discharged home in guarded prognosis however he needs follow-up as an outpatient. Patient was instructed to follow up with PCP Dr. Lowry within one week and patient agrees Patient was instructed to follow up with Dr. Maddox in one week and to follow-up her cervical biopsy results and she is agreeable.she verbalized understanding and acceptance and said it back to me Patient was instructed to follow up with Dr. Lazaro in 2-[address] Canales in one week and she is agreeable Physical exam -Gen: patient is a AAOx3, no distress, generally weak CVS: S1-S2, RRR, no murmur Lungs: B/L CTA, no wheezing Abdomen: soft, no distention, no tenderness, positive bowel sounds Extremity: no leg edema or induration Time spent more than 35 minutes Patient Condition at Discharge: Serious Plan - Discharge Summary Discharge Rx Participant: Yes New Discharge Prescriptions: New cefUROXime axetiL [Ceftin] 500 mg PO BID 10 Days #20 tab metroNIDAZOLE [Flagyl] 500 mg PO TID 10 Days #30 tab Famotidine [Pepcid] 20 mg PO DAILY #30 tablet Loperamide [Imodium] 2 mg PO QID PRN #0 cap PRN Reason: Diarrhea Metoprolol Tartrate [Lopressor] 12.5 mg PO BID #60 tab Discharge Medication List Famotidine [Pepcid] 20 mg PO DAILY #30 tablet 08/25/23 [Rx] Loperamide [Imodium] 2 mg PO QID PRN #0 cap 08/25/23 [Rx] Metoprolol Tartrate [Lopressor] 12.5 mg PO BID #60 tab 08/25/23 [Rx] cefUROXime axetiL [Ceftin] 500 mg PO BID 10 Days #20 tab 08/25/23 [Rx] metroNIDAZOLE [Flagyl] 500 mg PO TID 10 Days #30 tab 08/25/23 [Rx] Follow up Appointment(s)/Referral(s): Clint Lowry DO [Primary Care Provider] - 1-2 days Radha Maddox DO [Doctor of Osteopathic Medicine] - 1 Week Hannah Lazaro MD [STAFF PHYSICIAN] - 3 Weeks Juan Jose Platt MD [STAFF PHYSICIAN] - 1 Week Ambulatory/Diagnostic Orders: Basic Metabolic Panel [LAB.AMB] Time Frame: 3 Days, Location: None Selected Complete Blood Count w/diff [LAB.AMB] Location: None Selected Activity/Diet/Wound Care/Special Instructions: Need to follow up with oncology and gynecology/oncology outpatient for further evaluation Continue antibiotics for the next 10 days Also follow up with the GI specialist Dr Ella Lazaro for the pancreatic duct dilation Repeat labs in 2 to 3 days. Discharge Disposition: HOME WITH HOME HEALTH SERVICES
[2023-08-27 09:39] LABS: African American GFR (CKD) >90 (>60 ml/min/1.73 sqM); Anion Gap 9 mmol/L; Blood Urea Nitrogen 15 mg/dL (7-17); Calcium 8.5 mg/dL (8.4-10.2); Carbon Dioxide 22 mmol/L (22-30); Chloride 105 mmol/L (98-107); Glucose 84 mg/dL (74-99); Non-African American GFR(CKD) 88 (>60 ml/min/1.73 sqM); Potassium 4.3 mmol/L (3.5-5.1); Sodium 136 mmol/L (137-145)
[2023-08-27 10:46] VITALS: RESP 18
[2023-08-27 12:52] VITALS: BP 135/69; PULSE 69; TEMP 97.8
--- NOTE | 2023-08-28 22:38 | CDI ---
Documentation Clarification Form Date: 08/28/2023 10:19:46 PM From: Ruby Ramachandran Phone: Admit Date: 08/21/2023 01:19:00 PM Patient Name: Tia Cotter Visit Number: [id number] Discharge Date: 08/27/2023 01:51:00 PM ATTENTION: The Clinical Documentation Specialists (CDI) and [facility] Coding Staff appreciate your assistance in clarifying documentation. Please respond to the clarification below the line at the bottom and electronically sign. The CDI & [facility] Coding staff will review the response and follow-up if needed. Please note: Queries are made part of the Legal Health Record. If you have any questions, please contact the author of this message via ITS. Dr. Radha Maddox There is documentation of a couple masses involving female genitalia. Additional clarification is requested. 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 Hysterectomy(TAHBSOfor benign reasons) when pt. was 50yo Treatment: Wait for pathology result. Discussed with pt. and her daughter that she likely has some form ofcancer. I do not know if it is primary vagina, endometrial, cervical or colon. Can you please clarify location of mass? [ ] Vaginal Mass [ ] Status posthysterectomy with remaining cervical stump as location mass. [ ] Other, please specify [ ] Unable to determine (Template Last Revised: November 2020) MTDD
--- NOTE | 2023-09-15 14:04 | P.PN ---
Subjective Progress Note Date: 08/25/23 Principal diagnosis: Reason for follow-up is fever and leukopenia Patient is a 82-year-old female with a past medical history significant for MS patient was brought into the hospital for evaluation of slight confusion weakness and possible dehydration, patient did have a fever of 101.6 F on admission and initial workup including a chest x-ray and UA was n egative. On today's evaluation that is 08/25/2023, the patient remains to be afebrile, the patient is breathing comfortably on room air, the patient denies having any chest pain or cough and no sputum production, patient denies nausea vomiting or any diarrhea, the patient denies any worsening lower abdominal pain or any further vaginal drainage Patient white count is 5.3, creatinine 0.56 as of 08/23/2023, no new labs were obtained today Objective - Vital Signs Vital signs: Vital Signs Temp 97.8 F 08/25/23 08:50 Pulse 101 H 08/25/23 12:18 Resp 16 08/25/23 12:18 BP 150/72 08/25/23 12:18 Pulse Ox 97 08/25/23 12:18 FiO2 Intake & Output 08/24/23 08/25/23 08/25/23 18:59 06:59 18:59 Intake Total 240 358 Balance 240 358 Intake: Oral 240 358 Other: Voiding Method Diaper Diaper Diaper Incontinent Incontinent Incontinent # Voids 2 2 2 # Bowel Movements 1 - Exam GENERAL DESCRIPTION: An elderly Female lying in bed in no distress RESPIRATORY SYSTEM: Unlabored breathing , decreased breath sounds at bases HEART: S1 S2 regular rate and rhythm , ABDOMEN: Soft , no tenderness EXTREMITIES: No edema feet - Labs CBC & Chem 7: 08/23/23 08:47 08/27/23 08:00 Labs: Abnormal Lab Results - Last 24 Hours (Table) 08/25/23 Range/Units 12:42 Total Protein 5.0 L (6.3-8.2) g/dL Albumin 2.5 L (3.5-5.0) g/dL Microbiology - Last 24 Hours (Table) 08/21/23 14:11 Blood Culture - Preliminary Blood 08/21/23 13:50 Blood Culture - Preliminary Blood Assessment and Plan (1) Leukopenia Status: Acute Code(s): D72.819 - DECREASED WHITE BLOOD CELL COUNT, UNSPECIFIED SNOMED Code(s): 12223416 (2) Febrile illness Status: Acute Code(s): R50.9 - FEVER, UNSPECIFIED SNOMED Code(s): 885832492 Plan: 1patient is 82-year female with MS who did have a fever and apparent ly was tachycardic in the urgent care , she did have a leukopenia elevated lactic acid initial workup including UA chest x-ray has been negative evidence of encephalitis or joint swelling and abdominal soft on clinical Examination 2the patient did have mild elevated CRP and procalcitonin. 3CT of abdominal pelvis with heterogeneous appearance to the uterine cervix area and the patient did have some internal drainage likely source of her fever 4-patient has been evaluated by WHEEL ALIGNMENT TECHNICIAN some specimen has been obtained for pathology with results currently pending 5patient to continue with cefepime will add Flagyl and monitor clinical course closely Dictation was produced using [employer] dictation software. please excuse any grammatical, word or spelling errors. Time with Patient: Less than 30
--- NOTE | 2023-09-15 14:06 | P.PN ---
Subjective Progress Note Date: 08/26/23 Principal diagnosis: Reason for follow-up is fever and leukopenia Patient is a 82-year-old female with a past medical history significant for MS patient was brought into the hospital for evaluation of slight confusion weakness and possible dehydration, patient did have a fever of 101.6 F on admission and initial workup including a chest x-ray and UA was n egative. On today's evaluation that is 08/26/2023, the patient continues to be afebrile, the patient is breathing comfortably on room air, the patient denies chest pain shortness of breath or cough and no sputum production, patient denies nausea vomiting or any diarrhea, the patient denies abdominal pain or any further vaginal drainage Patient white count is 5.3 patient as of 08/23/2023, patient did have a creatinine 0.53 Objective - Vital Signs Vital signs: Vital Signs Temp 97.9 F 08/26/23 08:00 Pulse 83 08/26/23 08:00 Resp 18 08/26/23 08:00 BP 139/64 08/26/23 08:00 Pulse Ox 94 L 08/26/23 08:00 FiO2 Intake & Output 08/25/23 08/26/23 08/26/23 18:59 06:59 18:59 Intake Total 358 10 120 Output Total 400 Balance 358 -390 120 Intake: IV 10 Invasive Line 4 10 Oral 358 120 Output: Urine 400 Other: Voiding Method Diaper Diaper Diaper Incontinent Incontinent Incontinent External Catheter External Catheter # Voids 1 3 # Bowel Movements 1 - Exam GENERAL DESCRIPTION: An elderly Female lying in bed in no distress RESPIRATORY SYSTEM: Unlabored breathing , decreased breath sounds at bases HEART: S1 S2 regular rate and rhythm , ABDOMEN: Soft , no tenderness EXTREMITIES: No edema feet - Labs CBC & Chem 7: 08/23/23 08:47 08/27/23 08:00 Labs: Abnormal Lab Results - Last 24 Hours (Table) 08/25/23 08/26/23 Range/Units 12:42 05:53 Sodium 135 L (137-145) mmol/L Potassium 3.2 L (3.5-5.1) mmol/L Calcium 8.2 L (8.4-10.2) mg/dL Total Protein 5.0 L (6.3-8.2) g/dL Albumin 2.5 L (3.5-5.0) g/dL Assessment and Plan (1) Leukopenia Status: Acute Code(s): D72.819 - DECREASED WHITE BLOOD CELL COUNT, UNSPECIFIED SNOMED Code(s): 53826534 (2) Febrile illness Status: Acute Code(s): R50.9 - FEVER, UNSPECIFIED SNOMED Code(s): 439315939 Plan: 1patient is 82-year female with MS who did have a fever and apparently was tachycardic in the urgent care , she did have a leukopenia elevated lactic acid initial workup including UA chest x-ray has been negative evidence of encephalitis or joint swelling and abdominal soft on clinical Examination 2the patient did have mild elevated CRP and procalcitonin. 3CT of abdominal pelvis with heterogeneous appearance to the uterine cervix area and the patient did have some internal drainage likely source of her fever 4-patient has been evaluated by FACE HARDENER some specimen has been obtained for patho logy with results currently pending 5patient did have clinical improvement and will continue with cefepime along with Flagyl and plan to finish therapy with oral antibiotics Dictation was produced using [employer] dictation software. please excuse any grammatical, word or spelling errors. Time with Patient: Less than 30
--- NOTE | 2023-09-15 14:07 | P.PN ---
Subjective Progress Note Date: 08/27/23 Principal diagnosis: Reason for follow-up is fever and leukopenia Patient is a 82-year-old female with a past medical history significant for MS patient was brought into the hospital for evaluation of slight confusion weakness and possible dehydration, patient did have a fever of 101.6 F on admission and initial workup including a chest x-ray and UA was n egative. On today's evaluation that is 08/27/2023, the patient denies any fever or any chills, the patient is breathing comfortably on room air, the patient denies chest pain shortness of breath or cough, patient denies nausea vomiting or any diarrhea, the patient denies abdominal pain, no new symptoms Patient white count is 5.3 patient as of 08/23/2023, patient did have a creatinine 0.54 Objective - Vital Signs Vital signs: Vital Signs Temp 97.8 F 08/27/23 12:00 Pulse 69 08/27/23 12:00 Resp 18 08/27/23 12:00 BP 135/69 08/27/23 12:00 Pulse Ox 93 L 08/27/23 12:00 FiO2 Intake & Output 08/26/23 08/27/23 08/27/23 18:59 06:59 18:59 Intake Total 580 Output Total 700 400 500 Balance -120 -400 -500 Intake: Intake, IV Titration 100 Amount Cefepime 2 gm In Sodium 100 Chloride 0.9% 100 ml @ 25 mls/hr IVPB Q8H [facility] Rx#: [id number] Oral 480 Output: Urine 700 400 500 Other: Voiding Method Diaper Diaper External Catheter Incontinent Incontinent External Catheter External Catheter - Exam GENERAL DESCRIPTION: An elderly Female lying in bed in no distress RESPIRATORY SYSTEM: Unlabored breathing , decreased breath sounds at bases HEART: S1 S2 regular rate and rhythm , ABDOMEN: Soft , no tenderness EXTREMITIES: No edema feet - Labs CBC & Chem 7: 08/23/23 08:47 08/27/23 08:00 Labs: Abnormal Lab Results - Last 24 Hours (Table) 08/27/23 Range/Units 08:00 Sodium 136 L (137-145) mmol/L Microbiology - Last 24 Hours (Table) 08/21/23 14:11 Blood Culture - Final Blood 08/21/23 13:50 Blood Culture - Final Blood Assessment and Plan (1) Leukopenia Status: Acute Code(s): D72.819 - DECREASED WHITE BLOOD CELL COUNT, UNSPECIFIED SNOMED Code(s): 72343022 (2) Febrile illness Status: Acute Code(s): R50.9 - FEVER, UNSPECIFIED SNOMED Code(s): 566368471 Plan: 1patient is 82-year female with MS who did have a fever and apparently was tachycardic in the urgent care , she did have a leukopenia elevated lactic acid initial workup including UA chest x-ray has been negative evidence of encephalitis or joint swelling and abdominal soft on clinical Examination 2the patient did have mild elevated CRP and procalcitonin. 3CT of abdominal pelvis with heterogeneous appearance to the uterine cervix area and the patient did have some internal drainage likely source of her fever 4-patient has been evaluated by BEATER BOSS some specimen has been obtained for pathology with results currently pending 5patient did have clinical improvement and will finish therapy with oral Ceftin and Flagyl and has been advised to follow-up with BEATER BOSS regarding her biopsy Dictation was produced using [employer] dictation software. please excuse any grammatical, word or spelling errors. Time with Patient: Less than 30
--- NOTE | 2023-11-07 12:15 | CDI ---
Documentation Clarification Form Date: 11/07/2023 12:00:18 PM From: Ruby Ramachandran Phone: Admit Date: 08/21/2023 01:19:00 PM Patient Name: Tia Cotter Visit Number: [id number] Discharge Date: 08/27/2023 01:51:00 PM ATTENTION: The Clinical Documentation Specialists (CDI) and [facility] Coding Staff appreciate your assistance in clarifying documentation. Please respond to the clarification below the line at the bottom and electronically sign. The CDI & [facility] Coding staff will review the response and follow-up if needed. Please note: Queries are made part of the Legal Health Record. If you have any questions, please contact the author of this message via ITS. Dr. 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 Coding guidelines do not allow coding professionals to code based on pathology results; therefore, clarification is requested. History/risk factors: 82yo F, sepsis, acidosis, PHTN, MS, MAC, MR, vaginal bleeding x2mo, Leukopenia, Hx TAHBSOfor benign reasons when pt. was 50yo. Clinical Indicators: 6.6 cm mass-like area near the cervical/uterus region Treatment: tissues were sent for pathology from manual examination by OBGYN; per gynecology this can be followed up OP and needs to see [employer]/ONC. She was taken off IV vancomycin and started on flagyl with the cefepime and today she reports that herabdominal crampinghas resolved Please clarify if you agree with the pathology report diagnosis of high gradeHPVassociatedcarcinoma: [ x ] Yes, anogenital (venereal) warts and malignant neoplasm of vagina [ ] No, (please provide further clarification) [ ] Other (please specify) [ ] Unable to determine (Template Last Revised: November 2020) MTDD
== END 2023-08-27 13:51 | disposition home health service (06) | DRG 872 ==
LOC: EC 10:47 → 3SCARD 13:19
PROVIDERS: ADMIT Internal Medicine; ATTEND Internal Medicine
DX: A41.89 Other specified sepsis (principal); E87.20 Acidosis, unspecified; I27.20 Pulmonary hypertension, unspecified; K86.89 Other specified diseases of pancreas; G35 Multiple sclerosis; C52 Malignant neoplasm of vagina; I34.81 Nonrheumatic mitral (valve) annulus calcification; I34.0 Nonrheumatic mitral (valve) insufficiency; D72.819 Decreased white blood cell count, unspecified; E86.0 Dehydration; N95.0 Postmenopausal bleeding; A63.0 Anogenital (venereal) warts; K30 Functional dyspepsia; T36.95XA Adverse effect of unspecified systemic antibiotic, initial encounter; E87.6 Hypokalemia; K57.30 Diverticulosis of large intestine without perforation or abscess without bleeding; N20.0 Calculus of kidney; Z90.710 Acquired absence of both cervix and uterus; Z11.52 Encounter for screening for COVID-19; Z87.19 Personal history of other diseases of the digestive system; Q63.2 Ectopic kidney; Z88.2 Allergy status to sulfonamides; Z88.0 Allergy status to penicillin; Z87.891 Personal history of nicotine dependence
CPT/HCPCS: 36415; 70450; 71046; 74177; 80048; 80053; 80076; 80202; 81001; 83605; 84145; 84484; 85025; 85610; 85730; 86140; 86301; 87040; 87636; 88305; 88341; 88342; 93005; 93306; 96361; 96365; 96366; 96367; 96368; 99285

== ENCOUNTER 2023-09-17 19:34 | Inpatient (IN) | payer MEDICARE ==
[2023-09-17] MEDS ORDERED: SODIUM CHLORIDE 0.9% 1,000 ML IV STA (19:56)
--- NOTE | 2023-09-17 20:13 | ED ---
Recheck HPI - General Chief Complaint: Recheck/Abnormal Lab/Rx Stated Complaint: Blood in Urine Time Seen by Provider: 09/17/23 19:38 Source: patient, EMS, RN notes reviewed, old records reviewed Mode of arrival: EMS Limitations: no limitations - History of Present Illness Initial Comments: This is a 80-year-old female is a poor strain coming in for evaluation regarding possibility of extended care facility thinks maybe sepsis there concern for blood in the urine and she has history of urinary tract infections MD Complaint: other (Concern for sepsis) -: days(s) Returns Today for: needs IV antibiotics Symptoms Since Prior Visit: no new symptoms Associated Symptoms: none Treatments Prior to Arrival: other (0) - Related Data Previous Rx's Medication Instructions Recorded Famotidine [Pepcid] 20 mg PO DAILY #30 tablet 08/25/23 Loperamide [Imodium] 2 mg PO QID PRN #0 cap 08/25/23 Metoprolol Tartrate [Lopressor] 12.5 mg PO BID #60 tab 08/25/23 traMADol HCl [Ultram] 50 mg PO BID PRN 3 Days #6 tab 08/27/23 Cefuroxime [Ceftin] 250 mg PO BID #10 tab 09/19/23 Allergies Allergy/AdvReac Type Severity Reaction Status Date / Time Sulfa (Sulfonamide Allergy Unknown Verified 08/21/23 10:57 Antibiotics) Penicillins AdvReac Unknown Verified 08/21/23 10:57 Review of Systems ROS Statement: Those systems with pertinent positive or pertinent negative responses have been documented in the HPI. ROS Other: All systems not noted in ROS Statement are negative. Past Medical History Additional Past Medical History / Comment(s): MS, bladder cancer History of Any Multi-Drug Resistant Organisms: None Reported Past Surgical History: Hysterectomy Past Psychological History: No Psychological Hx Reported Smoking Status: Former smoker Past Alcohol Use History: None Reported Past Drug Use History: None Reported General Exam Limitations: no limitations General appearance: alert, in no apparent distress Head exam: Present: atraumatic, normocephalic, normal inspection Eye exam: Present: normal appearance, PERRL, EOMI. Absent: scleral icterus, conjunctival injection, periorbital swelling ENT exam: Present: normal exam, mucous membranes moist Neck exam: Present: normal inspection. Absent: tenderness, meningismus, lymphadenopathy Respiratory exam: Present: normal lung sounds bilaterally. Absent: respiratory distress, wheezes, rales, rhonchi, stridor Cardiovascular Exam: Present: regular rate, normal rhythm, normal heart sounds. Absent: systolic murmur, diastolic murmur, rubs, gallop, clicks GI/Abdominal exam: Present: soft, normal bowel sounds. Absent: distended, tenderness, guarding, rebound, rigid Extremities exam: Present: normal inspection, full ROM, normal capillary refill. Absent: tenderness, pedal edema, joint swelling, calf tenderness Back exam: Present: normal inspection Neurological exam: Present: alert, oriented X3, CN II-XII intact Psychiatric exam: Present: normal affect, normal mood Skin exam: Present: warm, dry, intact, normal color. Absent: rash Course Vital Signs 09/17/23 09/17/23 09/18/23 19:36 21:06 00:00 Temperature 98.6 F Pulse Rate 119 H 113 H 116 H Respiratory 18 16 16 Rate Blood Pressure 93/56 120/60 121/53 O2 Sat by Pulse 96 95 97 Oximetry 09/18/23 09/18/23 09/18/23 01:00 05:00 08:00 Temperature Pulse Rate 111 H 105 H Respiratory 18 16 16 Rate Blood Pressure 122/76 117/62 O2 Sat by Pulse 96 93 L Oximetry - Reevaluation(s) Reevaluation #1: 09/17/23 21:06 Medical records reviewed Reevaluation #2: 09/17/23 21:06 Significant change in symptoms Reevaluation #3: Patient informed results and questions answered Reevaluation #4: 09/17/23 20:12 Was pt. sent in by a medical professional or institution (, PA, DISPOSAL WORKER, urgent care, hospital, or alf...) When possible be specific @ -no Did you speak to anyone other than the patient for history (EMS, parent, family, police, friend...)? What history was obtained from this source @ -no Did you review nursing and triage notes (agree or disagree)? Why? @ -agree Are old charts reviewed (outside hosp., previous admission, EMS record, old EKG, old radiological studies, urgent care reports/EKG's, alf records)? Report findings @ -yes Differential Diagnosis (chest pain, altered mental status, abdominal pain women, abdominal pain men, vaginal bleeding, weakness, fever, dyspnea, syncope, headache, dizziness, GI bleed, back pain, seizure, CVA, palpatations, mental health, musculoskeletal)? @ -prior EKG interpreted by me (3pts min.). @ -no X-rays interpreted by me (1pt min.). @ -yes negative for acute disease CT interpreted by me (1pt min.). @ -no U/S interpreted by me (1pt. min.). @ -no What testing was considered but not performed or refused? (CT, X-rays, U/S, labs)? Why? @ -none What meds were considered but not given or refused? Why? @ -none Did you discuss the management of the patient with other professionals (rocio raines i.e. , PA, DISPOSAL WORKER, lab, RT, psych nurse, social media sr strategy manager, workplace trainer and assessor, teacher, chairman and chief executive officer, business case analyst)? Give summary @ -no Was smoking cessation discussed for >3mins.? @ -no Was critical care preformed (if so, how long)? @ -no Were there social determinants of health that impacted care today? How? (Homelessness, low income, unemployed, alcoholism, drug addiction, transportation, low edu. Level, literacy, decrease access to med. care, residential, rehab)? @ -none Was there de-escalation of care discussed even if they declined (Discuss DNR or withdrawal of care, Hospice)? DNR status @ -no What co-morbidities impacted this encounter? (DM, HTN, Smoking, COPD, CAD, Cancer, CVA, ARF, Chemo, Hep., AIDS, mental health diagnosis, sleep apnea, morbid obesity)? @ -none Was patient admitted / discharged? Hospital course, mention meds given and route, prescriptions, significant lab abnormalities, going to OR and other pertinent info. @ - 82 female to the emergency department for evaluation of possibility of blood in the patient be admitted for IV antibiotics Admitted Undiagnosed new problem with uncertain prognosis? @ -no Drug Therapy requiring intensive monitoring for toxicity (Heparin, Nitro, Insulin, Cardizem)? @ -no Were any procedures done? @ -no Diagnosis/symptom? @ -3 times a day ration weakness Acute, or Chronic, or Acute on Chronic? @ -Acute Uncomplicated (without systemic symptoms) or Complicated (systemic symptoms)? @ -Complicated Side effects of treatment? @ -no Exacerbation, Progression, or Severe Exacerbation? @ -exacerbation Poses a threat to life or bodily function? How? (Chest pain, [place], [place], pneumonia, PE, COPD, DKA, ARF, appy, cholecystitis, CVA, Diverticulitis, Homicidal, Suicidal, threat to staff... and all critical care pts) @ -yes with extreme of age Reevaluation #5: 09/17/23 20:12 Differential Altered Mental Status: Hypoglycemia, DKA, hypercapnia, ETOH, overdose, CO poisoning, trauma, myxedema coma, HTN encephalopathy, infection, encephalitis, psychosis, intercranial hemorrhage, hepatic encephalopathy, meningitis, CVA, this is not meant to be an all-inclusive list - Consultations Consultation #1: Spoke with admitting Physician severe admit this patient Medical Decision Making - Medical Decision Making 82 female to the emergency department for evaluation of possibility of blood in the patient be admitted for IV antibiotics - Lab Data Result diagrams: 09/17/23 20:10 09/17/23 20:10 Lab Results 09/17/23 09/17/23 09/17/23 Range/Units 20:10 20:10 20:10 WBC 9.9 (3.8-10.6) k/uL RBC 4.59 (3.80-5.40) m/uL Hgb 13.3 (11.4-16.0) gm/dL Hct 39.9 (34.0-46.0) % MCV 86.9 (80.0-100.0) fL MCH 28.9 (25.0-35.0) pg MCHC 33.3 (31.0-37.0) g/dL RDW 15.4 (11.5-15.5) % Plt Count 189 (150-450) k/uL MPV 9.7 Neutrophils % 80 % Lymphocytes % 12 % Monocytes % 5 % Eosinophils % 1 % Basophils % 0 % Neutrophils # 7.9 H (1.3-7.7) k/uL Lymphocytes # 1.2 (1.0-4.8) k/uL Monocytes # 0.5 (0-1.0) k/uL Eosinophils # 0.1 (0-0.7) k/uL Basophils # 0.0 (0-0.2) k/uL Sodium 139 (137-145) mmol/L Potassium 3.5 (3.5-5.1) mmol/L Chloride 108 H (98-107) mmol/L Carbon Dioxide 22 (22-30) mmol/L Anion Gap 9 mmol/L BUN 23 H (7-17) mg/dL Creatinine 0.55 (0.52-1.04) mg/dL Est GFR (CKD-EPI)AfAm >90 (>60 ml/min/1.73 sqM) Est GFR (CKD-EPI)NonAf 88 (>60 ml/min/1.73 sqM) Glucose 123 H (74-99) mg/dL Plasma Lactic Acid Dany (0.7-2.0) mmol/L Calcium 8.7 (8.4-10.2) mg/dL Phosphorus 2.9 (2.5-4.5) mg/dL Magnesium 1.7 (1.6-2.3) mg/dL Total Bilirubin 0.8 (0.2-1.3) mg/dL AST 36 (14-36) U/L ALT 24 (4-34) U/L Alkaline Phosphatase 78 (38-126) U/L Troponin I (0.000-0.034) ng/mL Total Protein 5.9 L (6.3-8.2) g/dL Albumin 3.2 L (3.5-5.0) g/dL Urine Color Light Red Urine Appearance Turbid H (Clear) Urine pH 5.5 (5.0-8.0) Ur Specific [place] 1.021 (1.001-1.035) Urine Protein 2+ H (Negative) Urine Glucose (UA) Negative (Negative) Urine Ketones 1+ H (Negative) Urine Blood Large H (Negative) Urine Nitrite Negative (Negative) Urine Bilirubin Negative (Negative) Urine Urobilinogen 2.0 (<2.0) mg/dL Ur Leukocyte Esterase Large H (Negative) Urine RBC >182 H (0-5) /hpf Urine WBC >182 H (0-5) /hpf Urine WBC Clumps Many H (None) /hpf Ur Squamous Epith Cells 7 H (0-4) /hpf Urine Mucus Many H (None) /hpf 09/17/23 09/17/23 Range/Units 20:10 20:10 WBC (3.8-10.6) k/uL RBC (3.80-5.40) m/uL Hgb (11.4-16.0) gm/dL Hct (34.0-46.0) % MCV (80.0-100.0) fL MCH (25.0-35.0) pg MCHC (31.0-37.0) g/dL RDW (11.5-15.5) % Plt Count (150-450) k/uL MPV Neutrophils % % Lymphocytes % % Monocytes % % Eosinophils % % Basophils % % Neutrophils # (1.3-7.7) k/uL Lymphocytes # (1.0-4.8) k/uL Monocytes # (0-1.0) k/uL Eosinophils # (0-0.7) k/uL Basophils # (0-0.2) k/uL Sodium (137-145) mmol/L Potassium (3.5-5.1) mmol/L Chloride (98-107) mmol/L Carbon Dioxide (22-30) mmol/L Anion Gap mmol/L BUN (7-17) mg/dL Creatinine (0.52-1.04) mg/dL Est GFR (CKD-EPI)AfAm (>60 ml/min/1.73 sqM) Est GFR (CKD-EPI)NonAf (>60 ml/min/1.73 sqM) Glucose (74-99) mg/dL Plasma Lactic Acid Dany 1.1 (0.7-2.0) mmol/L Calcium (8.4-10.2) mg/dL Phosphorus (2.5-4.5) mg/dL Magnesium (1.6-2.3) mg/dL Total Bilirubin (0.2-1.3) mg/dL AST (14-36) U/L ALT (4-34) U/L Alkaline Phosphatase (38-126) U/L Troponin I <0.012 (0.000-0.034) ng/mL Total Protein (6.3-8.2) g/dL Albumin (3.5-5.0) g/dL Urine Color Urine Appearance (Clear) Urine pH (5.0-8.0) Ur Specific [place] (1.001-1.035) Urine Protein (Negative) Urine Glucose (UA) (Negative) Urine Ketones (Negative) Urine Blood (Negative) Urine Nitrite (Negative) Urine Bilirubin (Negative) Urine Urobilinogen (<2.0) mg/dL Ur Leukocyte Esterase (Negative) Urine RBC (0-5) /hpf Urine WBC (0-5) /hpf Urine WBC Clumps (None) /hpf Ur Squamous Epith Cells (0-4) /hpf Urine Mucus (None) /hpf Disposition Clinical Impression: Dehydration, Weakness Disposition: ADMITTED IP TO THIS HOSP Condition: Fair Is patient prescribed a controlled substance at d/c from ED?: No Time of Disposition: 23:55
[2023-09-17 20:26] LABS: Basophils % (A) 0 %; Eosinophils # (A) 0.1 k/uL (0-0.7); Eosinophils % (A) 1 %; HCT 39.9 % (34.0-46.0); HGB 13.3 gm/dL (11.4-16.0); Lymphocytes # (A) 1.2 k/uL (1.0-4.8); Lymphocytes % (A) 12 %; MCH 28.9 pg (25.0-35.0); MCHC 33.3 g/dL (31.0-37.0); MCV 86.9 fL (80.0-100.0); Mean Platelet Volume 9.7; Monocytes # (A) 0.5 k/uL (0-1.0); Monocytes % (A) 5 %; Neutrophils # (A) 7.9 k/uL (1.3-7.7); Neutrophils % (A) 80 %; Platelet Count 189 k/uL (150-450); RBC 4.59 m/uL (3.80-5.40); RDW 15.4 % (11.5-15.5); WBC 9.9 k/uL (3.8-10.6)
[2023-09-17 20:47] LABS: ALT 24 U/L (4-34); AST 36 U/L (14-36); African American GFR (CKD) >90 (>60 ml/min/1.73 sqM); Albumin 3.2 g/dL (3.5-5.0); Alkaline Phosphatase 78 U/L (38-126); Anion Gap 9 mmol/L; Blood Urea Nitrogen 23 mg/dL (7-17); Calcium 8.7 mg/dL (8.4-10.2); Carbon Dioxide 22 mmol/L (22-30); Chloride 108 mmol/L (98-107); Glucose 123 mg/dL (74-99); Magnesium 1.7 mg/dL (1.6-2.3); Non-African American GFR(CKD) 88 (>60 ml/min/1.73 sqM); Phosphorus 2.9 mg/dL (2.5-4.5); Potassium 3.5 mmol/L (3.5-5.1); Sodium 139 mmol/L (137-145); Total Bilirubin 0.8 mg/dL (0.2-1.3); Total Protein 5.9 g/dL (6.3-8.2)
--- NOTE | 2023-09-17 21:06 | XR ---
EXAMINATION TYPE: XR chest 1V portable DATE OF EXAM: 09/17/2023 8:17 PM CLINICAL INDICATION:Female, 82 years old with history of weak; [facility] COMPARISON: Chest radiographs from 08/25/2023. TECHNIQUE: XR chest 1V portable Frontal view of the chest. FINDINGS: Lungs/Pleura: There is no evidence of pleural effusion, focal consolidation, or pneumothorax. Pulmonary vascularity: Unremarkable. Heart/mediastinum: Cardiomediastinal silhouette is unremarkable. Musculoskeletal: No acute osseous pathology. IMPRESSION: 1. No acute cardiopulmonary disease process. 2. COPD changes.
[2023-09-17 22:42] LABS: Appearance,Urine Turbid (Clear); Bilirubin,Urine Negative (Negative); Blood,Urine Large (Negative); Color,Urine Light Red; Glucose,Urine (UA) Negative (Negative); Ketones,Urine 1+ (Negative); Leukocyte Esterase,Urine Large (Negative); Mucus,Urine Many /hpf; Nitrite,Urine Negative (Negative); PH, Urine 5.5 (5.0-8.0); Protein,Urine 2+ (Negative); RBC,Urine >182 /hpf (0-5); Specific Gravity,Urine 1.021 (1.001-1.035); Squamous Epithelial Cell,Urine 7 /hpf (0-4); WBC,Urine >182 /hpf (0-5)
[2023-09-18] MEDS ORDERED: SODIUM CHLORIDE 0.9% 500 ML 500 ML IV STA (00:51)
[2023-09-18] MEDS ORDERED: SODIUM CHLORIDE 0.9% 1,000 ML IV STA (00:51)
[2023-09-18] MEDS ORDERED: NALOXONE 0.4 MG/ML 1 ML VIAL IV PRN (00:53)
[2023-09-18] MEDS ORDERED: ACETAMINOPHEN TAB 325 MG TAB PO PRN (00:53)
[2023-09-18] MEDS ORDERED: traMADol 50 MG TAB PO PRN (00:55)
[2023-09-18] MEDS ORDERED: cefTRIAXone IN SWFI 1,000 MG/10 ML SYRINGE IVP SCH (09:00)
[2023-09-18] MEDS: FAMOTIDINE 20 MG TAB PO SCH (09:28)
[2023-09-18] MEDS: METOPROLOL TARTRATE 12.5 MG TAB PO SCH ×2 (09:28→20:18)
[2023-09-18] MEDS ORDERED: LOPERAMIDE 2 MG CAP PO PRN (10:37)
[2023-09-18] MEDS: ENOXAPARIN 40 MG/0.4 ML SYRINGE SQ SCH (10:52)
--- NOTE | 2023-09-18 14:42 | P.HPIM ---
History of Present Illness H&P Date: 09/18/23 Chief Complaint: Fever Very pleasant 82-year-old patient follows with Dr. Lowry. Chronic stable medical conditions include MS, essential hypertension, urinary incontinence. Patient recently went from rehab to live at [facility]. Normally uses a walker at baseline. EMS was called out after patient was reported feeling weak diet lethargic. Poor appetite. When they arrived patient is able to hold to normal conversation. Temperature recorded 101.2. Patient has been complaining of some blood in the urine and urinary frequency. Patient started IV ceftriaxone in the ER. This morning patient is having still low decreased appetite. Tired. Feels a bit dehydrated. Review of systems: GEN.: Fever, tired, decreased appetite EYES: None HEENT: None NECK: None RESPIRATORY: None CARDIOVASCULAR: None GASTROINTESTINAL: None GENITOURINARY: Hematuria, urinary frequency MUSCULOSKELETAL: None LYMPHATICS: None HEMATOLOGICAL: None PSYCHIATRY: None NEUROLOGICAL: None Past medical history to include: Multiple sclerosis, bladder cancer, essential hypertension, urinary incontinence Physical examination: VITAL SIGNS: Temperature 101.4 at assisted living, 119, 18, 93/56, 96% room air upon presentation GENERAL: BMI 18.3, declining but awake tired. EYES: Pupils equal. Conjunctiva normal. HEENT: External appearance of nose and ears normal, oral cavity grossly normal. NECK: JVD not raised; masses not palpable. HEART: First and second heart sounds are normal; no edema. LUNGS: Respiratory rate normal; clear to auscultation. ABDOMEN: Soft, nontender, liver spleen not palpable, no masses palpable. PSYCH: Alert and oriented x3; mood and affect normal. MUSCULOSKELETAL:No Clubbing/cyanosis;muscles-grossly intact. OA NEUROLOGICAL: Cranial nerves grossly intact; no facial asymmetry, power and sensation grossly intact. LYMPHATICS: No lymph nodes palpable in the axilla and neck INVESTIGATIONS, reviewed in the clinical context: White count 9.9 hemoglobin 13.3 platelets 189 sodium 139 potassium 3.5 creatinine 0.55 UA: Large blood, leukoesterase positive, WBC 182. Chest x-ray film personally reviewed by me-hyperinflation Assessment and plan: -Acute UTI with cystitis causing sepsis. Recorded a temperature 101.2 at this assisted living and was tachycardia when she arrived. IV ceftriaxone. Blood culture. -Sepsis from UTI IV fluids. IV ceftriaxone -Clinical dehydration with decreased oral intake. Patient feels dehydrated. IV fluids -Chronic multiple sclerosis. -Essential hypertension The pressure running on the lower side when patient came in. Cutback dose of Lopressor. -Chronic medical debility, uses a walker at baseline -Mild protein calorie malnutrition BMI 18.3. Loss of muscle mass clinically. And showed a 1 can 3 times a day Past Medical History Additional Past Medical History / Comment(s): MS, bladder cancer History of Any Multi-Drug Resistant Organisms: None Reported Past Surgical History: Hysterectomy Past Psychological History: No Psychological Hx Reported Smoking Status: Former smoker Past Alcohol Use History: None Reported Past Drug Use History: None Reported Medications and Allergies Home Medications Medication Instructions Recorded Confirmed Type Famotidine [Pepcid] 20 mg PO DAILY #30 tablet 08/25/23 09/18/23 Rx Loperamide [Imodium] 2 mg PO QID PRN #0 cap 08/25/23 09/18/23 Rx Metoprolol Tartrate [Lopressor] 12.5 mg PO BID #60 tab 08/25/23 09/18/23 Rx traMADol HCl [Ultram] 50 mg PO BID PRN 3 Days #6 tab 08/27/23 09/18/23 Rx Allergies Allergy/AdvReac Type Severity Reaction Status Date / Time Sulfa (Sulfonamide Allergy Unknown Verified 08/21/23 10:57 Antibiotics) Penicillins AdvReac Unknown Verified 08/21/23 10:57 Physical Exam Vitals: Vital Signs Temp Pulse Resp BP Pulse Ox 09/18/23 08:00 16 09/18/23 05:00 105 H 16 117/62 93 L 09/18/23 01:00 111 H 18 122/76 96 09/18/23 00:00 116 H 16 121/53 97 09/17/23 21:06 113 H 16 120/60 95 09/17/23 19:36 98.6 F 119 H 18 93/56 96 Intake and Output 09/17/23 09/18/23 09/18/23 22:59 06:59 14:59 Other: Weight 53.07 kg Results CBC & Chem 7: 09/17/23 20:10 09/17/23 20:10 Labs: Abnormal Lab Results - Last 24 Hours (Table) 09/17/23 09/17/23 09/17/23 Range/Units 20:10 20:10 20:10 Neutrophils # 7.9 H (1.3-7.7) k/uL Chloride 108 H (98-107) mmol/L BUN 23 H (7-17) mg/dL Glucose 123 H (74-99) mg/dL Total Protein 5.9 L (6.3-8.2) g/dL Albumin 3.2 L (3.5-5.0) g/dL Urine Appearance Turbid H (Clear) Urine Protein 2+ H (Negative) Urine Ketones 1+ H (Negative) Urine Blood Large H (Negative) Ur Leukocyte Esterase Large H (Negative) Urine RBC >182 H (0-5) /hpf Urine WBC >182 H (0-5) /hpf Urine WBC Clumps Many H (None) /hpf Ur Squamous Epith Cells 7 H (0-4) /hpf Urine Mucus Many H (None) /hpf
[2023-09-18] MEDS: LACTATED RINGERS 1,000 ML IV SCH (15:08)
[2023-09-19] MEDS: LACTATED RINGERS 1,000 ML IV SCH ×2 (00:30→12:25)
[2023-09-19 09:03] VITALS: BP 137/67; PULSE 91; RESP 16; TEMP 97.5
[2023-09-19 09:27] VITALS: BMI 18.3
[2023-09-19] MEDS: METOPROLOL TARTRATE 12.5 MG TAB PO SCH (10:50)
[2023-09-19] MEDS: FAMOTIDINE 20 MG TAB PO SCH (10:51)
[2023-09-19] MEDS: ENOXAPARIN 40 MG/0.4 ML SYRINGE SQ SCH (12:25)
--- NOTE | 2023-09-19 13:20 | P.DS ---
Providers Date of admission: 09/18/23 00:53 Expected date of discharge: 09/19/23 Attending physician: Arthur Centeno Primary care physician: Clint Lowry [facility] Course: Chief Complaint: Fever Very pleasant 82-year-old patient follows with Dr. Lowry. Chronic stable medical conditions include MS, essential hypertension, urinary incontinence. Patient recently went from rehab to live at [facility]. Normally uses a walker at baseline. EMS was called out after patient was reported feeling weak diet lethargic. Poor appetite. When they arrived patient is able to hold to normal conversation. Temperature recorded 101.2. Patient has been complaining of some blood in the urine and urinary frequency. Patient started IV ceftriaxone in the ER. This morning patient is having still low decreased appetite. Tired. Feels a bit dehydrated. 09/19/2023: A much better. Appetite improved. Spoke to the daughter over the phone. Recent admission the hospital patient had a vaginal biopsy done. Showed high-grade carcinoma. Patient then followed up with Dr. Maddox in the outpatient. They have appointment coming up at [facility]. Patient accompanied a course of Ceftin at home. Questions answered. Discussion and discharge planning more than 35 minutes Past medical history to include: Multiple sclerosis, bladder cancer, essential hypertension, urinary incontinence Physical examination: VITAL SIGNS: 97.8, 69, 18, 135/69, 93% room air GENERAL: Notable, smiling EYES: Pupils equal. Conjunctiva normal. HEENT: External appearance of nose and ears normal, oral cavity grossly normal. NECK: JVD not raised; masses not palpable. HEART: First and second heart sounds are normal; no edema. LUNGS: Respiratory rate normal; clear to auscultation. ABDOMEN: Soft, nontender, liver spleen not palpable, no masses palpable. PSYCH: Alert and oriented x3; mood and affect normal. MUSCULOSKELETAL:No Clubbing/cyanosis;muscles-grossly intact. OA INVESTIGATIONS, reviewed in the clinical context: White count 9.9 hemoglobin 13.3 platelets 189 sodium 139 potassium 3.5 creatinine 0.55 UA: Large blood, leukoesterase positive, WBC 182. Chest x-ray film personally reviewed by me-hyperinflation Assessment and plan: -Acute UTI with cystitis causing sepsis. Recorded a temperature 101.2 at this assisted living and was tachycardia when she arrived. IV ceftriaxone. Ceftin 250 mg twice a day-5 days -Sepsis from UTI: Improved IV fluids. IV ceftriaxone -Clinical dehydration with decreased oral intake. Patient feels dehydrated. IV fluids -High-grade vaginal carcinoma. Seen outpatient by Dr. Maddox. Patient is pending a consultation at [facility]. -Chronic multiple sclerosis. -Essential hypertension Lopressor. -Chronic medical debility, uses a walker at baseline -Mild protein calorie malnutrition BMI 18.3. Loss of muscle mass clinically. Ensure 1 can 3 times a day Disposition: Home Past Medical History Additional Past Medical History / Comment(s): MS, bladder cancer History of Any Multi-Drug Resistant Organisms: None Reported Past Surgical History: Hysterectomy Past Psychological History: No Psychological Hx Reported Smoking Status: Former smoker Past Alcohol Use History: None Reported Past Drug Use History: None Reported Plan - Discharge Summary Discharge Rx Participant: No New Discharge Prescriptions: New Cefuroxime [Ceftin] 250 mg PO BID #10 tab Continue Famotidine [Pepcid] 20 mg PO DAILY #30 tablet Loperamide [Imodium] 2 mg PO QID PRN #0 cap PRN Reason: Diarrhea Metoprolol Tartrate [Lopressor] 12.5 mg PO BID #60 tab traMADol HCl [Ultram] 50 mg PO BID PRN 3 Days #6 tab PRN Reason: Pain/Discomfort Discharge Medication List Famotidine [Pepcid] 20 mg PO DAILY #30 tablet 08/25/23 [Rx] Loperamide [Imodium] 2 mg PO QID PRN #0 cap 08/25/23 [Rx] Metoprolol Tartrate [Lopressor] 12.5 mg PO BID #60 tab 08/25/23 [Rx] traMADol HCl [Ultram] 50 mg PO BID PRN 3 Days #6 tab 08/27/23 [Rx] Cefuroxime [Ceftin] 250 mg PO BID #10 tab 09/19/23 [Rx] Follow up Appointment(s)/Referral(s): Clint Lowry DO [Primary Care Provider] - 1-2 days Patient Instructions/Handouts: Dehydration (DC), Urinary Tract Infection in Women (DC) Discharge Disposition: HOME SELF-CARE
== END 2023-09-19 12:45 | disposition home or self-care (01) | DRG 872 ==
LOC: EC 19:34 → 3SCARD 09-18 00:53 → 4SSUR 09-18 05:39 → 1SOBS 09-18 07:37
PROVIDERS: ADMIT Hospitalist; ATTEND Hospitalist
DX: A41.9 Sepsis, unspecified organism (principal); N30.01 Acute cystitis with hematuria; E44.1 Mild protein-calorie malnutrition; Z68.1 Body mass index [BMI] 19.9 or less, adult; E86.0 Dehydration; G35 Multiple sclerosis; C52 Malignant neoplasm of vagina; I10 Essential (primary) hypertension; R32 Unspecified urinary incontinence; R53.81 Other malaise; Z88.0 Allergy status to penicillin; Z88.2 Allergy status to sulfonamides; Z87.440 Personal history of urinary (tract) infections; Z87.891 Personal history of nicotine dependence; Z85.51 Personal history of malignant neoplasm of bladder; Z79.899 Other long term (current) drug therapy; Z71.3 Dietary counseling and surveillance
CPT/HCPCS: 36415; 71045; 80053; 81001; 83605; 83735; 84100; 84484; 85025; 87040; 96361; 96365; 99285

== ENCOUNTER → 2023-10-09 | Outpatient (CLI) | payer MEDICARE ==
--- NOTE | 2023-10-11 12:10 | PE ---
EXAMINATION TYPE: PET CT fusion skull to thigh DATE OF EXAM: 10/09/2023 COMPARISON: CT abdomen and pelvis 08/22/2023 Prior PET/CT: None HISTORY: Vaginal cancer TECHNIQUE: Following the intravenous administration of 10.03 mCi of F-18 FDG, whole body images are performed from the skull base to the midthigh. Images are reviewed on the computer in the coronal, a xial, and sagittal planes. Reconstructed rotating images are created on independent workstation and reviewed on the computer. A localization and attenuation correction CT is performed in conjunction with the PET scan. DLP: 169.05 mGycm SCAN: Initial Blood glucose: 91 mg/dL Average Mediastinum SUV: 2.1 Average Liver SUV: 2.82 FINDINGS: NECK: No abnormal uptake THORAX: No abnormal uptake. Some nonspecific uptake between the right and left atria, example image 1 05, SUV 6.33 is present. This is felt to more likely be related to cardiac activity than metastasis. ABDOMEN: No abnormal uptake PELVIS: Left iliac chain lymph node is present on the left, image 196, SUV 3.68. There is intense uptake through the vaginal wall regions. This extends towards the posterior portion of the urinary bladder. Urinary bladder wall involvement on the posterior right cannot be excluded. V aginal wall SUV example is 12.32. OSSEOUS STRUCTURES: No abnormal uptake LOCALIZATION CT: Small pericardial effusion may be present. There is a nonobstructing renal stone on the inferior pole right kidney. Soft tissue mass in the vaginal wall region is present. This may have impression on the posterior right urinary bladder wall. This may account for the apparent uptake in this region on the PET scan. Invasion cannot be excluded. However, there does appear to be a border b etween the vaginal mass and the posterior urinary bladder wall. COMPARISON: None IMPRESSION: 1. On the vaginal wall mass has significant uptake compatible with neoplasm. 2. Direct invasion posterior right urinary bladder wall cannot be excluded. 3. Small lymph nodes not enlarged by size criteria has abnormal uptake in the left iliac chain region suspicious for small metastasis. 3. Cardiac activity likely accounts for uptake between the atria of the heart. No additional areas nogueira spicious for mediastinal or cardiac metastasis identified.
== END | disposition home or self-care (01) ==
LOC: RADPETMAIN 13:26
PROVIDERS: ATTEND Obstetrics & Gynecology
DX: C52 Malignant neoplasm of vagina (principal)
CPT/HCPCS: 78815; A9552

== ENCOUNTER → 2024-03-25 | Outpatient (CLI) | payer MEDICARE | END | disposition home or self-care (01) | LOC: RADPETMAIN 12:02 | PROVIDERS: ATTEND Obstetrics & Gynecology | DX: Z53.9 Procedure and treatment not carried out, unspecified reason (principal) ==

== ENCOUNTER → 2024-04-02 | Outpatient (CLI) | payer MEDICARE ==
--- NOTE | 2024-04-07 15:00 | PE ---
EXAMINATION TYPE: PET CT fusion skull to thigh DATE OF EXAM: 04/02/2024 COMPARISON: CT abdomen and pelvis 08/22/2023 Prior PET/CT: 10/09/2023 HISTORY: Malignant neoplasm of the vagina TECHNIQUE: Following the intravenous administration of 9.56 mCi of F-18 FDG, whole body images are p erformed from the skull base to the midthigh. Images are reviewed on the computer in the coronal, ax ial, and sagittal planes. Reconstructed rotating images are created on independent workstation and r eviewed on the computer. A localization and attenuation correction CT is performed in conjunction w ith the PET scan. DLP: 241.43 mGycm SCAN: Subsequent Blood glucose: 107 mg/dL Average Mediastinum SUV: 2.1 Average Liver SUV: 2.77 FINDINGS: NECK: No suspicious uptake THORAX: There is some faint uptake within the right upper lobe, image 80, SUV 1.65. This is nonspecif ic and can be related to inflammatory change or early metastasis. Intense uptake is within the right midlung, image 88, SUV 10.66. An area of uptake is in the anterior right mid lung, image 93, SUV 4.6. A large hilar uptake on the right is present image 91, SUV 9.92. ABDOMEN: There is uptake within the posterior lateral left spleen, image 113, SUV 12.3. An additional milder a aaron of uptake is within the medial portion of the spleen, SUV 7.31, image 117. There is some subtle uptake within the posterior left lobe liver image imaged 121, SUV 5.98. PELVIS: Small focus of uptake is in the left iliac chain, image 172, SUV 5.54. This is posterior medi al to some uptake within the left ureter. There is a focus of uptake within the anterior lateral urinary bladder wall of uncertain etiology. A metastasis should be considered. There is normal radiotracer posterior within the urinary bladder. Im age 207, SUV 9.87. Suspicious uptake within the vaginal vault is not clearly identified on the current exam. OSSEOUS STRUCTURES: There is a focus of radiotracer within the right mid thoracic vertebral body, magi ge 86, SUV 6.56. There is an area of uptake within the costovertebral region. This could be a metasta tic lesion within the transverse process of the lower thoracic spine, image 114, SUV 8.46. LOCALIZATION CT: Diverticular changes are within the sigmoid colon. COMPARISON: Previous uptake within the vaginal vault region has resolved. Additional areas of abnormal uptake within osseous structures liver spleen, lung mathur and mediastin al and hilar lymph nodes are new. IMPRESSION: 1. New areas suspicious for metastatic lesions include right hilar, right mid lung, spleen, liver, le ft iliac chain, and adjacent to or within the anterior lateral urinary bladder wall. 2. Previous vaginal vault region uptake not identified currently.
== END | disposition home or self-care (01) ==
LOC: RADPETMAIN 14:21
PROVIDERS: ATTEND Radiology Radiation Oncology
DX: C52 Malignant neoplasm of vagina (principal); R93.5 Abnormal findings on diagnostic imaging of other abdominal regions, including retroperitoneum
CPT/HCPCS: 78815; A9552

== ENCOUNTER 2024-05-29 10:30 | Inpatient (IN) | payer MEDICARE ==
--- NOTE | 2024-05-29 11:22 | ED ---
Weakness HPI - General Chief complaint: Weakness Stated complaint: dehydration Time Seen by Provider: 05/29/24 10:33 Source: patient, EMS, RN notes reviewed Mode of arrival: EMS Limitations: no limitations - History of Present Illness Initial comments: 83-year-old female presents emergency department with chief complaint diarrhea x 12 days. Patient states she just feels weak, dehydrated. Patient states she did see her PCP advised her not to take Imodium. Patient states that she does not have any localized abdominal pain just diffuse cramping. No flank pain no chest pain no shortness of breath no headache patient does have a history of cancer has not had any treatment since last year. - Related Data Home Medications Medication Instructions Recorded Confirmed modafiniL 100 mg PO DAILY 05/29/24 05/29/24 predniSONE 5 mg PO DAILY 05/29/24 05/29/24 Allergies Allergy/AdvReac Type Severity Reaction Status Date / Time Sulfa (Sulfonamide Allergy Rash/Hives Verified 05/29/24 14:44 Antibiotics) Penicillins AdvReac Shaking Verified 05/29/24 14:44 Review of Systems ROS Statement: Those systems with pertinent positive or pertinent negative responses have been documented in the HPI. ROS Other: All systems not noted in ROS Statement are negative. Past Medical History Additional Past Medical History / Comment(s): MS, bladder cancer History of Any Multi-Drug Resistant Organisms: None Reported Past Surgical History: Hysterectomy Past Psychological History: No Psychological Hx Reported Smoking Status: Former smoker Past Alcohol Use History: None Reported Past Drug Use History: None Reported General Exam Limitations: no limitations General appearance: alert, in no apparent distress Head exam: Present: atraumatic, normocephalic, normal inspection Eye exam: Present: normal appearance, PERRL, EOMI. Absent: scleral icterus, conjunctival injection, periorbital swelling ENT exam: Present: normal exam, normal oropharynx, mucous membranes moist Neck exam: Present: normal inspection, full ROM. Absent: tenderness, meningismus, lymphadenopathy Respiratory exam: Present: normal lung sounds bilaterally. Absent: respiratory distress, wheezes, rales, rhonchi, stridor Cardiovascular Exam: Present: regular rate, normal rhythm, normal heart sounds. Absent: systolic murmur, diastolic murmur, rubs, gallop, clicks GI/Abdominal exam: Present: soft, normal bowel sounds. Absent: distended, tenderness, guarding, rebound, rigid Neurological exam: Present: alert Skin exam: Present: warm, dry, intact, normal color. Absent: rash Course Vital Signs 05/29/24 05/29/24 05/29/24 10:34 14:00 16:00 Temperature 97.6 F Pulse Rate 103 H 115 H 112 H Respiratory 16 Rate Blood Pressure 127/65 126/54 137/62 O2 Sat by Pulse 92 L 94 L 94 L Oximetry EKG Findings - EKG Comments: EKG Findings:: EKG performed at 10: 40 sinus tachycardia with a rate of 107 NM 135 QRS 93 QT/QTc 336/399 - EKG Results: EKG: interpreted by JONNY Medical Decision Making - Medical Decision Making Was pt. sent in by a medical professional or institution (, PA, MAP COMPILER, urgent care, hospital, or group home...) When possible be specific @ -No Did you speak to anyone other than the patient for history (EMS, parent, family, police, friend...)? What history was obtained from this source @ -No Did you review nursing and triage notes (agree or disagree)? Why? @ -I reviewed and agree with nursing and triage notes Were old charts reviewed (outside hosp., previous admission, EMS record, old EKG, old radiological studies, urgent care reports/EKG's, group home records)? Report findings @ -No old charts were reviewed Differential Diagnosis (chest pain, altered mental status, abdominal pain women, abdominal pain men, vaginal bleeding, weakness, fever, dyspnea, syncope, headache, dizziness, GI bleed, back pain, seizure, CVA, palpatations, mental health, musculoskeletal)? @ -Differential Abdominal Pain Women: Appendicitis, Cholecystitis, diverticulosis, ischemic bowel, pancreatitis, hepatitis, UTI, gastroenteritis, AAA, incarcerated hernia, bowel obstruction, constipation, inflammatory bowel, hepatitis, peptic ulcer disease, splenic infarction, perforated viscus, vulvitis, ovarian torsion, PID, kidney stone, placenta abruption, this is not meant to be an all-inclusive list EKG interpreted by me (3pts min.). @ -As above X-rays interpreted by me (1pt min.). @ -Chest x-ray shows pulmonary nodules new CT interpreted by me (1pt min.). @ -CT of the chest abdomen pelvis showing diffuse metastatic disease to the chest, liver pancreas osseous normalities noted U/S interpreted by me (1pt. min.). @ -None done What testing was considered but not performed or refused? (CT, X-rays, U/S, labs)? Why? @ -None What meds were considered but not given or refused? Why? @ -None Did you discuss the management of the patient with other professionals (professionals i.e. Dr., PA, MAP COMPILER, lab, RT, psych nurse, manager social, shearing machine feeder, teacher, employment security officer, disease case manager)? Give summary @ -EMH for admission Was smoking cessation discussed for >3mins.? @ -No Was critical care preformed (if so, how long)? @ -No Were there social determinants of health that impacted care today? How? (Homelessness, low income, unemployed, alcoholism, drug addiction, transportation, low edu. Level, literacy, decrease access to med. care, longterm, rehab)? @ -No Was there de-escalation of care discussed even if they declined (Discuss DNR or withdrawal of care, Hospice)? DNR status @ -No What co-morbidities impacted this encounter? (DM, HTN, Smoking, COPD, CAD, Cancer, CVA, ARF, Chemo, Hep., AIDS, mental health diagnosis, sleep apnea, morbi d obesity)? @ -Vaginal cancer Was patient admitted / discharged? Hospital course, mention meds given and route, prescriptions, significant lab abnormalities, going to OR and other pertinent info. @ -[Admitted patient is found to have diffuse metastatic disease I did have the patient regarding laboratory findings with acute dehydration, metabolic acidosis patient provided IV fluids and antiemetics patient will be admitted for consult oncology, palliative, hospice consult. Undiagnosed new problem with uncertain prognosis? @ -Yes Drug Therapy requiring intensive monitoring for toxicity (Heparin, Nitro, Insulin, Cardizem)? @ -No Were any procedures done? @ -No Diagnosis/symptom? @ -[Abdominal pain, diarrhea, metabolic acidosis, metastatic disease Acute, or Chronic, or Acute on Chronic? @ -Acute Uncomplicated (without systemic symptoms) or Complicated (systemic symptoms)? @ -Complicated Side effects of treatment? @ -No Exacerbation, Progression, or Severe Exacerbation? @ -No Poses a threat to life or bodily function? How? (Chest pain, USA, ID, pneumonia, PE, COPD, DKA, ARF, appy, cholecystitis, CVA, Diverticulitis, Homicidal, Suicidal, threat to staff... and all critical care pts) @ -Yes metastatic disease - Lab Data Result diagrams: 05/29/24 10:48 05/29/24 10:48 Lab Results 05/29/24 05/29/24 05/29/24 Range/Units 10:48 10:48 10:48 WBC 7.3 (3.8-10.6) k/uL RBC 5.86 H (3.80-5.40) m/uL Hgb 16.8 H (11.4-16.0) gm/dL Hct 51.9 H (34.0-46.0) % MCV 88.5 (80.0-100.0) fL MCH 28.7 (25.0-35.0) pg MCHC 32.4 (31.0-37.0) g/dL RDW 15.2 (11.5-15.5) % Plt Count 201 (150-450) k/uL MPV 9.5 Neutrophils % 81 % Lymphocytes % 12 % Monocytes % 5 % Eosinophils % 1 % Basophils % 1 % Neutrophils # 5.9 (1.3-7.7) k/uL Lymphocytes # 0.9 L (1.0-4.8) k/uL Monocytes # 0.4 (0-1.0) k/uL Eosinophils # 0.1 (0-0.7) k/uL Basophils # 0.0 (0-0.2) k/uL Sodium 145 (137-145) mmol/L Potassium 3.4 L (3.5-5.1) mmol/L Chloride 120 H (98-107) mmol/L Carbon Dioxide 11 L (22-30) mmol/L Anion Gap 14 mmol/L BUN 27 H (7-17) mg/dL Creatinine 0.82 (0.52-1.04) mg/dL Est GFR (CKD-EPI)AfAm 77 (>60 ml/min/1.73 sqM) Est GFR (CKD-EPI)NonAf 66 (>60 ml/min/1.73 sqM) Glucose 122 H (74-99) mg/dL Plasma Lactic Acid Dany 1.4 (0.7-2.0) mmol/L Calcium 12.0 H (8.4-10.2) mg/dL Magnesium 2.1 (1.6-2.3) mg/dL Total Bilirubin 1.0 (0.2-1.3) mg/dL AST 252 H (14-36) U/L ALT 205 H (4-34) U/L Alkaline Phosphatase 362 H (38-126) U/L Total Protein 7.5 (6.3-8.2) g/dL Albumin 4.3 (3.5-5.0) g/dL - EKG Data -: EKG Interpreted by Me Disposition Clinical Impression: Metabolic acidosis, Metastatic disease, Diarrhea Disposition: ADMITTED IP TO THIS [facility] Condition: Poor Time of Disposition: 14:19
[2024-05-29 11:23] LABS: Basophils % (A) 1 %; Eosinophils # (A) 0.1 k/uL (0-0.7); Eosinophils % (A) 1 %; HCT 51.9 % (34.0-46.0); HGB 16.8 gm/dL (11.4-16.0); Lymphocytes # (A) 0.9 k/uL (1.0-4.8); Lymphocytes % (A) 12 %; MCH 28.7 pg (25.0-35.0); MCHC 32.4 g/dL (31.0-37.0); MCV 88.5 fL (80.0-100.0); Mean Platelet Volume 9.5; Monocytes # (A) 0.4 k/uL (0-1.0); Monocytes % (A) 5 %; Neutrophils # (A) 5.9 k/uL (1.3-7.7); Neutrophils % (A) 81 %; Platelet Count 201 k/uL (150-450); RBC 5.86 m/uL (3.80-5.40); RDW 15.2 % (11.5-15.5); WBC 7.3 k/uL (3.8-10.6)
[2024-05-29] MEDS: SODIUM CHLORIDE 0.9% 1,000 ML IV STA (11:40)
--- NOTE | 2024-05-29 12:15 | XR ---
EXAMINATION TYPE: XR chest 2V DATE OF EXAM: 05/29/2024 12:00 PM CLINICAL INDICATION: Female, 83 years old with history of weakness; COMPARISON: Chest radiographs from 09/17/2023 TECHNIQUE: XR chest 2V Frontal view of the chest. FINDINGS: Lungs/Pleura: Right midlung 13 mm nodule with possible adjacent nodule also present measuring 13 mm. There is no evidence of pleural effusion, focal consolidation, or pneumothorax. Pulmonary vascularity: Unremarkable. Heart/mediastinum: Cardiomediastinal silhouette is unremarkable. Atherosclerotic calcifications are seen in the aorta. Musculoskeletal: No acute osseous pathology. Other findings: None IMPRESSION: Right midlung pulmonary nodule new from prior 09/17/2023. Further nonemergent evaluation of pulmonary nodules and for the malignancy recommended. [facility], , 05/29/2024 12:13 PM
[2024-05-29 12:47] LABS: ALT 205 U/L (4-34); AST 252 U/L (14-36); African American GFR (CKD) 77 (>60 ml/min/1.73 sqM); Albumin 4.3 g/dL (3.5-5.0); Alkaline Phosphatase 362 U/L (38-126); Anion Gap 14 mmol/L; Blood Urea Nitrogen 27 mg/dL (7-17); Carbon Dioxide 11 mmol/L (22-30); Chloride 120 mmol/L (98-107); Glucose 122 mg/dL (74-99); Magnesium 2.1 mg/dL (1.6-2.3); Non-African American GFR(CKD) 66 (>60 ml/min/1.73 sqM); Potassium 3.4 mmol/L (3.5-5.1); Sodium 145 mmol/L (137-145); Total Protein 7.5 g/dL (6.3-8.2)
--- NOTE | 2024-05-29 13:54 | CT ---
EXAMINATION TYPE: CT ChestAbdPelvis w con CT DLP: 596.4 mGycm, Automated exposure control for dose reduction was used. DATE OF EXAM: 05/29/2024 1:29 PM COMPARISON: Plain film same day. CLINICAL INDICATION: Female, 83 years old with history of lung mass, abd pain; PHH, lung mass, abd pa in Technique: CT ChestAbdPelvis w con; Multiple axial images were obtained. Two-dimensional coronal and sagittal reconstructions were obtained. Contrast used:80ml mL of Isovue 300 with IV Contrast, Oral contrast used: without Oral Contrast Findings: CHEST: LUNGS/ PLEURA: Right perihilar mass measuring 26 x 21 mm. Scattered pulmonary nodules on a background of moderate to severe emphysema. Examples include: left upper lung measuring 5 mm series 201 image 1 7 in the lingula measuring 12 mm, and the right lower lung measuring 8 mm, within the right upper julius g measuring 9 mm in the right lower lung measuring 17 mm. No evidence for pneumothorax pleural effusi on. AIRWAY: Patent and unremarkable. HEART: Size within normal limits. MEDIASTINUM: Subcarinal lymph node measuring up to 13 mm in short axis. Anterior tracheal trachea declan suring 15 mm in short axis. Prevascular space on the left/supraclavicular measuring 15 mm. VASCULATURE: No aortic aneurysm. MUSCULOSKELETAL: No acute osseous abnormalities. Suspicious T4 6 mm lesion as described below. SOFT TISSUES/LYMPH NODES: Unremarkable. LOWER NECK: No significant findings. ABDOMEN: ABDOMEN LIVER: Scattered lesions are seen throughout the liver which are poorly evaluated on this single phas e study, examples include segment 4A measuring 20 mm and segment 8 measuring 23 mm. GALLBLADDER AND BILE DUCTS: Unremarkable. PANCREAS: Dilated main pancreatic duct extending from the pancreatic head to the tail. Discrete mass not well appreciated. SPLEEN: Scattered lesions are seen throughout the spleen largest measuring up to 42 mm. ADRENAL GLANDS: Unremarkable. KIDNEYS AND URETERS: 6 mm nonobstructing right renal calculus. Congenital rotated kidneys suggested b ilaterally. PELVIS BLADDER: Unremarkable REPRODUCTIVE: The uterus is surgically absent. ABDOMEN & PELVIS STOMACH AND BOWEL: No evidence of bowel obstruction. Scattered colonic diverticula. PERITONEUM/RETROPERITONEUM: No evidence of pneumoperitoneum or free fluid. VASCULATURE: No evidence of aortic aneurysm. MUSCULOSKELETAL: Scattered osseous lesions are seen throughout the osseous structures. Examples inclu de right sacrum measuring 11 mm, left sacrum measuring 10 mm, T4 vertebral body measuring 6 mm. LYMPH NODES: Lymph nodes are seen within the jb hepatis, gastrohepatic ligament measuring up to 19 mm in short axis. Left common iliac lymph node measuring up to 16 mm in short axis. SOFT TISSUE/ABDOMINAL WALL: Unremarkable IMPRESSION: * Evidence of metastatic disease with dominant right perihilar mass measuring up to 26 mm with media stinal lymphadenopathy, scattered pulmonary nodules throughout the lung, scattered osseous lesions, s cattered hepatic and splenic lesions and abdominal lymph nodes present. Abnormal dilated pancreatic d uct extending from the head to the tail and discrete mass not definitively appreciated. Given other s igns of metastatic disease pancreatic malignancy should be considered in the differential. * Nonobstructing right renal calculus. [facility], , 05/29/2024 1:52 PM
[2024-05-29] MEDS ORDERED: NALOXONE 0.4 MG/ML 1 ML VIAL IV PRN (14:19)
[2024-05-29] MEDS ORDERED: HYDROmorphone 0.5 MG/0.5 ML SYRINGE IVP PRN (14:58)
[2024-05-29] MEDS ORDERED: HYDROcodone/APAP 5-325MG 1 EACH TAB PO PRN (14:58)
[2024-05-29] MEDS ORDERED: Potassium Replacement Protocol 1 EACH MISC MISCELLANE PRN (14:59)
[2024-05-29] MEDS ORDERED: Magnesium Replacement Protocol 1 EACH MISC MISCELLANE PRN (14:59)
[2024-05-29] MEDS: SODIUM CHLORIDE 0.9% 1,000 ML IV SCH (16:06)
[2024-05-29] MEDS: HEPARIN SODIUM,PORCINE 5,000 UNIT/ML 1 ML VIAL SQ SCH (20:09)
[2024-05-29] MEDS: POTASSIUM CHLORIDE ER 20 MEQ TAB.ER PO SCH (20:09)
--- NOTE | 2024-05-29 22:36 | HP ---
HISTORY AND PHYSICAL CHIEF COMPLAINT: Diarrhea, dehydration, and weakness. HISTORY OF PRESENT ILLNESS: This is an 83-year-old woman with a past history of multiple medical problems, including bladder carcinoma, was complaining of significant diarrhea, vomiting, dehydration, weakness for the last several days. The patient does not have any localized pain or cramping. The patient came to [facility], was found to have potassium of 3.4. The patient's LFTs elevated. The patient also had CAT scan of the abdomen, pelvis, chest which I reviewed personally, which showed metastatic disease with dominant right perihilar mass up to 2.6 mm, mediastinal lymphadenopathy and multiple other metastatic lesions also. There is no history of any fever, rigors or chills at this time. The patient is generally weak. The patient lives in [facility]. PAST MEDICAL HISTORY: Reviewed include bladder carcinoma. Rest of history is in the chart. Chart is also reviewed. HOME MEDICATIONS: Reviewed Doses and rest of medications reviewed. ALLERGIES: Bactrim. FAMILY HISTORY: History of lung cancer. SOCIAL HISTORY: No history of smoking or alcohol abuse. REVIEW OF SYSTEMS: Fourteen-point review of systems negative except as mentioned earlier. PHYSICAL EXAMINATION: VITAL SIGNS: Pulse is 88, blood pressure 113/58, respirations 16. HEENT: Conjunctivae normal. NECK: No JVD. CARDIOVASCULAR: S1, S2. RESPIRATIONS: Breath sounds diminished at the bases. A few scattered rhonchi and crackles. ABDOMEN: Soft. Mildly diffuse discomfort. LEGS: No edema. NERVOUS SYSTEM: Nonfocal. LABORATORY DATA: WBC ntd, hemoglobin 7.4, platelets are 109, rest of the labs are noted. ASSESSMENT: 1. Severe diarrhea, dehydration with acute renal failure, acute tubular necrosis. 2. 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 3. Hypokalemia 4. Multiple complex medical issues. RECOMMENDATIONS AND DISCUSSION: This is an 83-year-old woman presented with multiple complex medical issues, we will monitor the patient closely. Otherwise, I would recommend hematology/oncology evaluation. Stool for C diff. Cautious IV hydration. The chest x-ray was reviewed. Prognosis guarded. Further recommendations will follow. See orders for details. Repeat labs will be ordered. Home medications will be continued once they are confirmed. Avoid nephrotoxic medications. MMODL / IJN: [id number] / [facility]
[2024-05-30 06:50] LABS: Appearance,Urine Cloudy (Clear); Bacteria,Urine Many /hpf; Bilirubin,Urine Negative (Negative); Blood,Urine Large (Negative); Color,Urine Dark Brown; Glucose,Urine (UA) Negative (Negative); Ketones,Urine Negative (Negative); Leukocyte Esterase,Urine Moderate (Negative); Nitrite,Urine Negative (Negative); PH, Urine 8.5 (5.0-8.0); Protein,Urine Trace (Negative); RBC,Urine 4 /hpf (0-5); Specific Gravity,Urine 1.007 (1.001-1.035); WBC,Urine 8 /hpf (0-5)
[2024-05-30] MEDS: ONDANSETRON 4 MG/2 ML VIAL IVP PRN (07:52)
[2024-05-30] MEDS: PANTOPRAZOLE 40 MG TABLET PO SCH (07:52)
[2024-05-30 09:59] LABS: Basophils # (A) 0.06 X 10*3/uL (0.00-0.10); Basophils % (A) 0.7 %; Eosinophils # (A) 0.03 X 10*3/uL (0.04-0.35); Eosinophils % (A) 0.3 %; HCT 51.1 % (37.2-46.3); HGB 16.2 g/dL (12.0-15.0); Lymphocytes # (A) 0.84 X 10*3/uL (0.90-5.00); Lymphocytes % (A) 9.4 %; MCH 27.6 pg (27.0-32.0); MCHC 31.7 g/dL (32.0-37.0); MCV 87.1 FL (80.0-97.0); Mean Platelet Volume 12.3 FL (9.5-12.2); Monocytes # (A) 0.88 X 10*3/uL (0.20-1.00); Monocytes % (A) 9.8 %; NRBC Per 100 WBC 0 X 10*3/uL (0.00-0.01); Neutrophils # (A) 7.15 X 10*3/uL (1.80-7.70); Neutrophils % (A) 79.6 %; Platelet Count 242 X 10*3/uL (140-440); RBC 5.87 X 10*6/uL (4.10-5.20); RDW 16.5 % (11.5-14.5); WBC 8.98 X 10*3/uL (4.50-10.00)
[2024-05-30 10:21] LABS: Magnesium 2.1 mg/dL (1.5-2.4)
[2024-05-30] MEDS: modafiniL 100 MG TAB PO SCH (10:22)
[2024-05-30] MEDS: ZINC OXIDE PASTE (Z-GUARD) 1 APPLIC TOPICAL PRN (10:23)
[2024-05-30 10:25] LABS: ALT 177 U/L (8-44); AST 168 U/L (13-35); Albumin 4.1 g/dL (3.8-4.9); Albumin/Globulin Ratio 1.64 Ratio (1.60-3.17); Alkaline Phosphatase 361 U/L (41-126); BUN/Creat Ratio 31.88 Ratio (12.00-20.00); Blood Urea Nitrogen 25.5 mg/dL (9.0-27.0); Calcium 11.8 mg/dL (8.7-10.3); Chloride 121 mmol/L (96-109); Globulin 2.5 g/dL (1.6-3.3); Glucose 141 mg/dL (70-110); Potassium 3.4 mmol/L (3.5-5.5); Sodium 143 mmol/L (135-145); Total Bilirubin 0.5 mg/dL (0.3-1.2); Total Protein 6.6 g/dL (6.2-8.2)
[2024-05-30] MEDS: DIPHENOX-ATROP 2.5-0.025 MG 1 EACH TAB PO PRN (11:32)
[2024-05-30] MEDS ORDERED: ACETAMINOPHEN TAB 325 MG TAB PO PRN (12:03)
[2024-05-30] MEDS: ACETAMINOPHEN TAB 325 MG TAB PO STA (12:11)
--- NOTE | 2024-05-30 13:57 | P.CONS ---
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 She is patient of Dr. Canseco and Dr. Barakat. She was was diagnosed with high grade carcinoma of vagina,when she presented with vaginal bleeding in August/2023, and was felt not a good candidate for chemotherapy at that time,she had urosepsis and due fraility,then she was treated with radiation therapy, which was completed on 11/17/2023. She had a follow up PET scan on 04/02/2024 which showed new areas of suspcious uptake in right hilum,RML of lung,spleen,liver,left iliac chain and anterior lateral bladder wall. She was evaluated by Dr Holcomb, and felt she has metastatic disease but not a good candidate for systemic therapy. She subsequently had f/u with Dr. Barakat, and it was discussed that ideally,a tissue biopsy should be pursued to confirm metastatic disease. However,given her PS and co-morbidities, she was thought to not likely to be a good candidate for systemic therapy. Patient and family had decided they were not interested in systemic treatment. Hospice care was discussed and they had decided to proceed with comfort care measures. Patient presented to the emergency room with complaints of progressing weakness and diarrhea over the last [address] abdomen and pelvis was obtained upon admission which showed evidence of metastatic disease with dominant right perihilar mass measuring up to 26 mm with mediastinal lymphadenopathy, scattered pulmonary nodules throughout the lung, scattered osseous lesions, scattered hepatic and splenic lesions and abdominal lymphadenopathy. Abnormal dilated pancreatic duct extending from the head to the tail. Blood culture and stool culture pending. C. difficile testing negative. WBC 7.3, hemoglobin 16.8, platelets 201,000. Bilirubin 1.0, with transaminitis noted. Patient afebrile. Hospice has been consulted Review of Systems 10 point ROS is negative except as stated in the HPI Past Medical History Additional Past Medical History / Comment(s): MS, bladder cancer History of Any Multi-Drug Resistant Organisms: None Reported Past Surgical History: Hysterectomy Past Psychological History: No Psychological Hx Reported Smoking Status: Former smoker Past Alcohol Use History: None Reported Past Drug Use History: None Reported - Past Family History Mother Family Medical History: Unable to Obtain Father Family Medical History: Seizure Disorder Medications and Allergies Home Medications Medication Instructions Recorded Confirmed Type modafiniL 100 mg PO DAILY 05/29/24 05/29/24 History predniSONE 5 mg PO DAILY 05/29/24 05/29/24 History Allergies Allergy/AdvReac Type Severity Reaction Status Date / Time Sulfa (Sulfonamide Allergy Rash/Hives Verified 05/29/24 14:44 Antibiotics) Penicillins AdvReac Shaking Verified 05/29/24 14:44 Physical Exam Vitals: Vital Signs Temp Pulse Pulse Resp BP BP Pulse Ox 05/30/24 08:30 107 H 16 05/30/24 06:12 97.9 F 107 H 16 132/80 96 05/30/24 01:47 98.4 F 107 H 16 112/69 94 L 05/29/24 19:46 98.2 F 116 H 16 115/69 98 05/29/24 16:35 98.1 F 91 14 108/51 93 L 05/29/24 16:00 112 H 137/62 94 L 05/29/24 14:00 115 H 126/54 94 L 05/29/24 10:34 97.6 F 103 H 16 127/65 92 L Intake and Output 05/29/24 05/30/24 05/30/24 22:59 06:59 14:59 Intake Total 240 Output Total 4 Balance 240 -4 Intake: Oral 240 Output: Urine/Stool Mix 4 Other: Voiding Method Diaper Diaper Incontinent Incontinent # Voids 1 1 # Bowel Movements 1 - Constitutional General appearance: no acute distress - EENT Eyes: anicteric sclerae, EOMI ENT: hearing grossly normal - Respiratory breathing is even and unlabored - Cardiovascular skin warm and dry - Integumentary Integumentary: no cyanotic - Neurologic lethargic - Musculoskeletal Musculoskeletal: generalized weakness - Psychiatric Psychiatric: A&O x's 3 Results CBC & Chem 7: 05/30/24 03:47 05/30/24 03:47 Labs: Abnormal Lab Results - Last 24 Hours (Table) 05/29/24 05/29/24 05/30/24 Range/Units 10:48 10:48 05:55 RBC 5.86 H (3.80-5.40) m/uL Hgb 16.8 H (11.4-16.0) gm/dL Hct 51.9 H (34.0-46.0) % Lymphocytes # 0.9 L (1.0-4.8) k/uL Potassium 3.4 L (3.5-5.1) mmol/L Chloride 120 H (98-107) mmol/L Carbon Dioxide 11 L (22-30) mmol/L BUN 27 H (7-17) mg/dL Glucose 122 H (74-99) mg/dL Calcium 12.0 H (8.4-10.2) mg/dL AST 252 H (14-36) U/L ALT 205 H (4-34) U/L Alkaline Phosphatase 362 H (38-126) U/L Urine Appearance Cloudy H (Clear) Urine pH 8.5 H (5.0-8.0) Urine Protein Trace H (Negative) Urine Blood Large H (Negative) Ur Leukocyte Esterase Moderate H (Negative) Urine WBC 8 H (0-5) /hpf Urine Bacteria Many H (None) /hpf CT scan - abdomen: report reviewed CT scan - chest: report reviewed CT scan - pelvis: report reviewed Assessment and Plan (1) Primary carcinoma of vagina Current Visit: Yes Status: Acute Priority: High Code(s): C52 - MALIGNANT NEOPLASM OF VAGINA SNOMED Code(s): 4616883970 (2) Diarrhea Current Visit: Yes Status: Acute Priority: High Code(s): R19.7 - DIARRHEA, UNSPECIFIED SNOMED Code(s): 65762428 (3) Dehydration Current Visit: Yes Status: Acute Code(s): E86.0 - DEHYDRATION SNOMED Code(s): 46891510 Plan: Weakness, diarrhea: Presented to the emergency room with complaints of progressing weakness and diarrhea over the last 12 days. -CT abdomen and pelvis was obtained upon admission which showed evidence of metastatic disease with dominant right perihilar mass measuring up to 26 mm with mediastinal lymphadenopathy, scattered pulmonary nodules throughout the lung, scattered osseous lesions, scattered hepatic and splenic lesions and abdominal lymphadenopathy. Abnormal dilated pancreatic duct extending from the head to the tail. -Blood culture and stool culture pending. C. difficile testing negative. -WBC 7.3, hemoglobin 16.8, platelets 201,000. Bilirubin 1.0, with transaminitis noted. -Antidiarrheals and IV hydration started Vaginal carcinoma: -Oncology history and plan as dictated in HPI -She is patient of Dr. Canseco and Dr. Barakat. She was was diagnosed with high grade carcinoma of vagina,when she presented with vaginal bleeding in August/2023, and was felt not a good candidate for chemotherapy at that time. Underwent radiation therapy, which was completed on 11/17/2023. -Follow up PET scan on 04/02/2024 which showed new areas of suspcious uptake in right hilum,RML of lung,spleen,liver,left iliac chain and anterior lateral bladder wall. She was evaluated by Dr Holcomb, and felt she has metastatic disease but not a good candidate for systemic therapy. She subsequently had f/u with Dr. Barakat, and it was discussed that ideally,a tissue biopsy should be pursued to confirm metastatic disease. However,given her PS and co-morbidities, she was thought to not likely to be a good candidate for systemic therapy. Patient and family had decided they were not interested in systemic treatment. Hospice care was discussed and they had decided to proceed with comfort care measures -Inpatient hospice consult has been placed. Patient and family has met with [facility], but have decided to proceed with [facility]. [facility] plans to meet with patient and family tomorrow Discussed CT findings and hospice philosophy with patient/family. All questions and concerns were addressed
[2024-05-30 21:33] LABS: Glucose,Whole Blood 130 mg/dL (70-110)
[2024-05-30] MEDS: PANTOPRAZOLE 40 MG/10 ML VIAL IVP SCH (22:07)
--- NOTE | 2024-05-30 22:59 | XR ---
EXAMINATION TYPE: XR knee complete bilateral DATE OF EXAM: 05/30/2024 CLINICAL HISTORY: Fall injury with pain TECHNIQUE: Three views of bilateral knee are obtained. COMPARISON: None. FINDINGS: There is no acute fracture/dislocation evident in either knee. Symmetric moderate tricompa rtment joint space loss. Overlying clothing and/or blanket material is present. IMPRESSION: There is no acute fracture or dislocation in either knee. [facility], Workstation: [id number], 05/30/2024 10:56 PM
--- NOTE | 2024-05-30 23:06 | CT ---
EXAMINATION TYPE: CT brain cspine wo con DATE OF EXAM: 05/30/2024 COMPARISON: CT brain August 21, 2023 HISTORY: FALL UNABLE TO REMOVE NECKLACE CT DLP: 1313.7 mGycm. Automated Exposure Control for Dose Reduction was Utilized. TECHNIQUE: CT scan of the head and cervical spine are performed without contrast. FINDINGS: There is no acute intracranial hemorrhage or midline shift identified. Mild/moderate vent ricular and sulcal prominence is redemonstrated. Moderate low attenuation in the deep and periventri cular white matter is redemonstrated. The calvarium is intact. Bilateral aphakia is redemonstrated. T he visualized sinuses are clear. Cervical spine is visualized in its entirety from C1 through upper thoracic levels and demonstrates s coliotic curvature alignment without evidence of acute fracture or dislocation. Prevertebral soft ti ssue appears within normal limits. The C1-C2 articulation shows asymmetric right-sided narrowing on the coronal images. Vertebral body heights are maintained. There is moderate to severe multilevel di sc space narrowing greatest at C5-C6 level. Axial images show multilevel uncovertebral facet degenera tive changes bilaterally. Thyroid gland appears within normal limits. Lung apices show emphysematous change without pneumothorax. There is incidental 6 mm anterior left upper lobe pulmonary nodule image 102. Consider nonemergent chest CT to evaluate for additional pulmonary nodules. IMPRESSION: 1. There is no acute fracture or dislocation evident in the cervical spine. 2. No acute intracranial hemorrhage or midline shift is seen. [facility], , 05/30/2024 11:04 PM
--- NOTE | 2024-05-30 23:13 | PN ---
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 The family is actively thinking about possible hospice at this time. The patient also had potassium 3.4. Also, there is no history of any fever, rigors, chills. PAST MEDICAL HISTORY: Reviewed. REVIEW OF SYSTEMS: Fourteen-point review is negative. CURRENT MEDICATIONS: Reviewed, include: 1. Tylenol. 2. [place]. Doses and rest of medications reviewed. PHYSICAL EXAMINATION: VITAL SIGNS: Pulse is 112, blood pressure n, respirations 18. HEENT: Conjunctivae normal. NECK: No JVD. RESPIRATIONS: Few scattered rhonchi. ABDOMEN: Soft. NERVOUS SYSTEM: Nonfocal. LABORATORY DATA: Reviewed. ASSESSMENT: 1. Severe diarrhea, dehydration with acute renal failure with acute tubular necrosis, present on admission. 2. 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 3. Multiple sclerosis. 4. History of nicotine dependence. 5. Multiple medical issues. RECOMMENDATIONS: Recommend to continue current management and treatment. LFTs also elevated. At this time, I would recommend continue to monitor and the patient had metastatic disease. Continue with hospice evaluation. Closely follow with multiple consultants. See orders for further details. MMODL / IJN: [id number] / JAYNA
[2024-05-31 13:35] VITALS: BP 95/52; PULSE 110; RESP 19; TEMP 98.3
--- NOTE | 2024-05-31 13:54 | P.DS ---
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 Patient will follow-up with Dr. Lowry in the outpatient setting upon discharge. Total time taken is greater than 35 minutes. Hospital course This is a 83-year-old female who was recently admitted with diarrhea dehydration acute injury of the kidneys with acute tubular necrosis found to have significant metastatic disease most likely from high-grade vaginal carcinoma. Family have discussed further with oncology as well as hospice and arranging for the [facility]. Financial assessment being arranged and patient will discharge to [facility] today. Overall poor and guarded prognosis. Please refer to other consultation notes for further HPI. Patient is minimally responsive appears comfortable resting and lethargic. Currently no reports of chest pain, shortness of breath, or palpitations. Patient is afebrile. No reports of nausea or vomiting. Patient will be going to [facility] today. Physical exam: Gen: This is a 83-year-old female who is lethargic and mostly obtunded, well- developed, elderly appearing, ill-appearing, thin HEENT: Head is atraumatic, normocephalic. Pupils equal, round. Sclerae is anicteric. NECK: Supple. No JVD. No lymphadenopathy. No thyromegaly. LUNGS: Diminished breath sounds bilaterally otherwise clear to auscultation. No wheezes or rhonchi. No intercostal retractions. HEART: Regular rate and rhythm. No murmur. ABDOMEN: Soft. Bowel sounds are present. No masses. No tenderness. EXTREMITIES: No pedal edema. No calf tenderness. NEUROLOGICAL: Patient is lethargic, minimally arousable, alert and oriented x1. Diffusely weak. Please refer to medication reconciliation sheet for a list of medications. The impression and plan of care has been dictated by Zelda Rosales, Nurse Practitioner as directed. Dr. Hector MD I have performed a history and examination and MDM of this patient, discussed the same with the dictator, and agree with the dictator's assessment and plan as written ,documented as a scribe. Based on total visit time, I have performed more than 50% of the visit. Patient Condition at Discharge: Poor Plan - Discharge Summary Discharge Rx Participant: No New Discharge Prescriptions: New Diphenox-Atrop 2.5-0.025 mg [Lomotil] 2 each PO Q6HR PRN tab PRN Reason: Diarrhea HYDROcodone/APAP 5-325MG [[place] 5-325] 1 each PO Q6HR PRN tab PRN Reason: Pain Acetaminophen Tab [Tylenol] 650 mg PO Q6HR PRN tab PRN Reason: Fever And/ Or Pain Continue modafiniL 100 mg PO DAILY Discontinued predniSONE 5 mg PO DAILY Discharge Medication List modafiniL 100 mg PO DAILY 05/29/24 [History] Acetaminophen Tab [Tylenol] 650 mg PO Q6HR PRN tab 05/31/24 [Rx] Diphenox-Atrop 2.5-0.025 mg [Lomotil] 2 each PO Q6HR PRN tab 05/31/24 [Rx] HYDROcodone/APAP 5-325MG [[place] 5-325] 1 each PO Q6HR PRN tab 05/31/24 [Rx] Follow up Appointment(s)/Referral(s): Clint Lowry DO [Primary Care Provider] - 1-2 days Activity/Diet/Wound Care/Special Instructions: Patient is going to the hospice house Discharge Disposition: OTHER INSTITUTION NOT DEFINED
== END 2024-05-31 16:31 | disposition hospice, inpatient (51) | DRG 640 ==
LOC: EC 10:30 → 5NMEDONC 14:11
PROVIDERS: ADMIT Internal Medicine; ATTEND Internal Medicine
DX: E86.0 Dehydration (principal); N17.0 Acute kidney failure with tubular necrosis; C78.02 Secondary malignant neoplasm of left lung; C78.01 Secondary malignant neoplasm of right lung; R19.7 Diarrhea, unspecified; G35 Multiple sclerosis; E87.20 Acidosis, unspecified; C52 Malignant neoplasm of vagina; C67.9 Malignant neoplasm of bladder, unspecified; R59.0 Localized enlarged lymph nodes; Z66 Do not resuscitate; R74.01 Elevation of levels of liver transaminase levels; E87.6 Hypokalemia; K86.89 Other specified diseases of pancreas; Z51.5 Encounter for palliative care; Z79.899 Other long term (current) drug therapy; Z88.0 Allergy status to penicillin; Z88.2 Allergy status to sulfonamides; Z28.310 Unvaccinated for COVID-19; Z85.51 Personal history of malignant neoplasm of bladder; Z87.891 Personal history of nicotine dependence; Z92.3 Personal history of irradiation
CPT/HCPCS: 36415; 70450; 71046; 71260; 72125; 74177; 80053; 81001; 82533; 83605; 83735; 85025; 87040; 87045; 87046; 87324; 93005; 96361; 96374; 99285